=== PATIENT | female | born 1990 | race Caucasian/White ===

== ENCOUNTER 2018-02-27 14:24 | Emergency (ER) | payer SELFPAY ==
--- OUTSIDE RECORDS SUMMARY | 2018-02-27 14:26 | XMS REPORT ---
:1990 [facility] Address [address] [place] [id number] Care Team Providers Name Role Phone BORA Romain NIKO Unavailable Unavailable Problems This patient has no known problems. Allergies, Adverse Reactions, Alerts This patient has no known allergies or adverse reactions. Medications This patient has no known medications. Results Test Description Test Time Test Comments Text Results Atomic Results Result Comments URINALYSIS WITH MICROSCOPIC 2017-02-12 20:58:00 Test Item Value Reference Range Comments Color (test code=UCOLR) Lt. Yellow Clarity (test code=UCLAR) CLEAR Glucose (test code=UGLUC) >=1000 NEGATIVE Bilirubin (test code=UBILI) NEGATIVE NEGATIVE Ketones (test code=UKET) NEGATIVE NEGATIVE Specific [place] (test code=USPGR) 1.010 1.005-1.030 Blood (test code=UBLD) LARGE NEGATIVE PH (test code=UPH) 5.0 4.5-8.0 Protein (test code=UPROT) NEGATIVE NEGATIVE Urobilinogen (test code=U UROB) 0.2 >0.2 Nitrite (test code=UNITR) NEGATIVE NEGATIVE Leukocyte Esterase (test code=ULEUK) TRACE NEGATIVE WBC (test code=WBCUR) 5-10 0-5 RBC (test code=RBCUR) 0-2 0-5 Epithial Cells (test code=U EPI) 40-50 0-10 Mucous (test code=UMUC) Trace None Seen Bacteria (test code=UBACT) 2+ None Seen,Trace TEST, Serum [id number] 20:28:00 Test Item Value Reference Range Comments (Serum) (test code=PREGS) Negative Negative ACETONE, [id number] 20:27:00 Test Item Value Reference Range Comments Acetone Serum (test code=ACETO) Negative Acetone Titer (test code=ACETIT) n/a [id number] 20:22:00 Test Item Value Reference Range Comments Glucose (test code=GLU) 373 mg/dl 75-110 BUN (test code=BUN) 11.0 mg/dl 6.0-17.0 Creatinine (test 0.7 mg/dl 0.4-1.2 code=CREA) Sodium (test code=NA) 143 mmol/l 137-145 Potassium (test code=K) 4.3 mmol/l 3.5-5.0 Chloride (test code=CL) 101 mmol/l 98-107 CO2 (test code=CO2) 26 mmol/l 22-30 Calcium (test code=CALC) 9.3 mg/dl 8.4-10.2 T Protein (test code=TP) 7.1 gm/dl 5.1-8.7 Albumin (test code=ALB) 4.1 gm/dl 3.5-4.6 A/G Ratio (test 1.4 % 1.1-2.2 code=AGRAT) AST (SGOT) (test 47 U/L 11-36 code=AST) ALT (SGPT) (test 68 U/L 11-40 code=ALT) Alkaline Phos (test 71 U/L 47-114 code=ALKP) Total Bilirubin (test 0.3 mg/dl 0.2-1.2 code=TBIL) Globulin (test 3.0 gm/dl 2.3-3.5 code=GLOBU) Anion Gap (test 16 code=GAP) Calcium, Corrected (test 9.2 mg/dl 8.4-10.2 Various formulas exist for code=CALCCORR) corrected serum calcium results, each yielding different values. This corrected result was based on the formula: Corrected Calcium=SerumCalcium + [0.8 * ( 4 - SerumAlbumin)] EGFR if >60 (test code=EGFRAA) mL/min/1.73m\S\2 EGFR if Non- >60 Estimated Glomerular [place] (test mL/min/1.73m\S\2 Filtration Rate (eGFR) code=EGFRNA) Reference Intervals Decision Points for 18 years and older and average body mass: >=60 Does not exclude kidney disease. 30 - 59 Suggests moderate chronic kidney disease and indicates the need for further investigation including assessment of proteinuria and cardiovascular factors. < 30 Usually indicates a need for referral for assessment and management of chronic kidney failure. CBC WITH AUTO [id number] 19:53:00 Test Item Value Reference Range Comments WBC (test code=WBC) 10.2 k/ul 4.8-10.8 RBC (test code=RBC) 5.41 Millions/ul 4.20-5.40 Hemoglobin (test code=HGB) 13.9 gm/dl 12.0-14.0 Hematocrit (test code=HCT) 42.7 % 37.0-47.0 MCV (test code=MCV) 78.9 fL 81.0-99.0 MCH (test code=MCH) 25.8 pg 27.0-31.0 MCHC (test code=MCHC) 32.7 gm/dl 33.0-37.0 RDW (test code=RDWVC) 14.0 % 11.5-14.5 Platelet (test code=PLT) 196 k/ul 130-400 MPV (test code=MPV) 11.3 fL 7.4-10.4 NE% (test code=NE) 75.9 % 42.0-75.0 LY% (test code=LY) 18.1 % 13.0-42.0 MO% (test code=MO) 4.2 % 4.0-14.0 EO% (test code=EO) 1.3 % 1.0-3.0 BA% (test code=BA) 0.5 % 1.0-3.0 NRBC, Auto (test code=NRBC_AUTO) 0 /100WBC 0-0
[2018-02-27] MEDS ORDERED: INSULIN -REGULAR HUMAN 50 UNIT/0.5 ML ML ONE (15:57)
[2018-02-27 15:58] LABS: Barbiturates NEGATIVE; Benzodiazepines NEGATIVE; Cocaine NEGATIVE; METHAMPHETAM NEGATIVE; Opiates NEGATIVE; Phencyclidine NEGATIVE; THC Cannibis NEGATIVE
--- NOTE | 2018-02-27 16:17 | EDPHYS ---
Physician Documentation [facility] Name: Demetria Chamberlain Age: 27 yrs Sex: Female : 1990 Arrival Date: 02/27/2018 Time: 14:26 Bed 28 Private MD: None, None ED Physician Lincoln Ann HPI: 02/27 15:40 This 27 yrs old Female presents to ER via Ambulatory with complaints of High snw Blood Sugar, Chest Pain. 15:40 The patient or guardian reports polyuria, that was potentially precipitated by not snw taking insulin since November. Onset: The symptoms/episode began/occurred gradually. Associated signs and symptoms: Pertinent positives: polyuria, chest pain. Current symptoms: In the emergency department the patient's symptoms are unchanged from the initial presentation. It is unknown whether or not the patient has had similar symptoms in the past. The patient has not recently seen a physician. 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 - Social history:: Smoking status: Patient/guardian denies using tobacco. ROS: 15:39 Constitutional: Negative for fever, chills, and weight loss, Eyes: Negative for injury, snw pain, redness, and discharge, ENT: Negative for injury and discharge, + sore throat Neck: Negative for injury, pain, and swelling. 15:39 Respiratory: Negative for shortness of breath, cough, wheezing, and pleuritic chest pain, Abdomen/GI: Negative for abdominal pain, nausea, vomiting, diarrhea, and constipation, Back: Negative for injury and pain, : Negative for injury, bleeding, discharge, and swelling, MS/Extremity: Negative for injury and deformity, Skin: Negative for injury, rash, and discoloration. 15:39 Cardiovascular: Positive for tightening. 15:39 Neuro: Positive for headache. Exam: 15:39 Constitutional: This is a well developed, well nourished patient who is awake, alert, snw and in no acute distress. Head/Face: Normocephalic, atraumatic. Eyes: Pupils equal round and reactive to light, extra-ocular motions intact. Lids and lashes normal. Conjunctiva and sclera are non-icteric and not injected. Cornea within normal limits. Periorbital areas with no swelling, redness, or edema. ENT: Nares patent. No nasal discharge, no septal abnormalities noted. Tympanic membranes are erythematous and external auditory canals are clear. Oropharynx with no redness, swelling, or masses, exudates, or evidence of obstruction, uvula midline. Mucous membranes moist. Neck: Trachea midline, no thyromegaly or masses palpated, and no cervical lymphadenopathy. Supple, full range of motion without nuchal rigidity, or vertebral point tenderness. No Meningismus. Chest/axilla: Normal chest wall appearance and motion. Nontender with no deformity. No lesions are appreciated. Cardiovascular: Regular rate and rhythm with a normal S1 and S2. No gallops, murmurs, or rubs. Normal PMI, no JVD. No pulse deficits. Respiratory: Lungs have equal breath sounds bilaterally, clear to auscultation and percussion. No rales, rhonchi or wheezes noted. No increased work of breathing, no retractions or nasal flaring. Abdomen/GI: Soft, non-tender, with normal bowel sounds. No distension or tympany. No guarding or rebound. No evidence of tenderness throughout. Back: No spinal tenderness. No costovertebral tenderness. Full range of motion. Skin: Warm, dry with normal turgor. Normal color with no rashes, no lesions, and no evidence of cellulitis. MS/ Extremity: Pulses equal, no cyanosis. Neurovascular intact. Full, normal range of motion. Neuro: Awake and alert, GCS 15, oriented to person, place, time, and situation. Cranial nerves II-XII grossly intact. Motor strength 5/5 in all extremities. Sensory grossly intact. Cerebellar exam normal. Normal gait. Vital Signs: 14:47 BP 131 / 95; Pulse 97; Resp 20; Temp 97.9; Pulse Ox 100% on R/A; Weight 95.25 kg; hb Height 5 ft. 6 in. (167.64 cm); Pain 4/10; 15:54 BP 121 / 88; Pulse 95; Resp 16; Pulse Ox 97% on R/A; Pain 4/10; tt1 16:50 BP 120 / 89; Pulse 97; Resp 17; Pulse Ox 98% on R/A; rk2 14:47 Body Mass Index 33.89 (95.25 kg, 167.64 cm) hb MDM: 15:16 Patient medically screened. snw 15:44 Data reviewed: vital signs, nurses notes. Data interpreted: Pulse oximetry: on room air snw is 100 %. Interpretation: normal. Counseling: I had a detailed discussion with the patient and/or guardian regarding: the historical points, exam findings, and any diagnostic results supporting the discharge/admit diagnosis, the presence of at least one elevated blood pressure reading (>120/80) during this emergency department visit. Refusal of service: The patient/guardian displays adequate decision making capability and despite a detailed discussion of alternatives, benefits, risks, and consequences refuses: all lab tests, all X-rays. Special discussion: Based on the history and exam findings, there is no indication for further emergent testing or inpatient evaluation. I discussed with the patient/guardian the need to see the primary care provider for further evaluation of the symptoms. ED course: pt refuses test, states she just wants blood sugar reduced.. 02/27 15:14 Order name: Strep; Complete Time: 16:39 snw 02/27 15:14 Order name: Flu; Complete Time: 16:39 snw 02/27 15:14 Order name: Urine Drug Screen; Complete Time: 16:06 snw 02/27 15:14 Order name: Urine Culture sn 02/27 15:14 Order name: Urine Microscopic Only; Complete Time: 16:39 snw 02/27 15:41 Order name: Urine Dipstick--Ancillary (enter results) 02/27 15:14 Order name: Urine Test (obtain specimen); Complete Time: 15:38 snw 02/27 15:14 Order name: Urine Dipstick-Ancillary (obtain specimen); Complete Time: 15:38 snw 02/27 15:14 Order name: FSBS; Complete Time: 15:15 snw 02/27 15:41 Order name: Urine --Ancillary (enter results) eb 02/27 16:22 Order name: Throat Culture EDMS 02/27 15:47 Order name: FSBS: in 30 min to one hour post insulin; Complete Time: 16:59 snw Administered Medications: 16:00 Drug: Insulin Regular Human 10 units {Co-Signature: tl3 (Dorota Vazquez RN).} Route: rk2 Sub-Q; Site: left upper arm; 16:23 Drug: Zithromax 500 mg Route: PO; rk2 16:50 Follow up: Response: No adverse reaction rk2 Point of Care Testing: Blood Glucose: 14:47 Blood Glucose: 367 mg/dL; hb Ranges: Critical Glucose Levels:Adult <50 mg/dl or >400 mg/dl <40 mg/dl or >180 mg/dl Disposition: 02/28 12:36 Co-signature as Attending Physician, Lincoln Ann MD. Disposition: 02/27/18 16:16 Discharged to Home. Impression: Diabetes mellitus due to underlying condition with hyperglycemia, Acute serous otitis media. - Condition is Stable. - Discharge Instructions: Diabetes and Sick Day Management, Otitis Media, Adult, Hyperglycemic Hyperosmolar State, Diabetic Ketoacidosis, Blood Glucose Monitoring, Adult. - Prescriptions for Novolog 100 unit/mL Subcutaneous solution - inject 5 unit by SUBCUTANEOUS route 2 times per day 5 units before breakfast and 5 units before dinner; 1 vial. Zithromax 500 mg Oral Tablet - take 1 tablet by ORAL route once daily for 5 days; 5 tablet. - Medication Reconciliation Form, Thank You Letter, Antibiotic Education, Prescription Opioid Use form. - Follow up: Private Physician; When: Tomorrow; Reason: Recheck today's complaints, Continuance of care, Re-evaluation by your physician. Follow up: Emergency Department; When: As needed; Reason: Worsening of condition. Signatures: Dispatcher [employer] EDMS Kaylene Solorio, JULIÁN-C SENIOR STRUCTURAL ENGINEER-Csnw Chrissy Santillan RN RN Lincoln Ann MD MD Marge Hoang RN RN rk2 Dorota Vazquez RN tl3 Corrections: (The following items were deleted from the chart) 02/27 16:12 15:15 Chest Pa And Lat (2 Views)+RAD.[email or web address].[email or web address] ordered. EDMS EDMS
--- NOTE | 2018-02-27 16:17 | ER ---
Nurse's Notes [facility] Name: Demetria Chamberlain Age: 27 yrs Sex: Female : 1990 Arrival Date: 02/27/2018 Time: 14:26 Bed 28 Private MD: None, None Diagnosis: Diabetes mellitus due to underlying condition with hyperglycemia;Acute serous otitis media Presentation: 02/27 14:48 Presenting complaint: Patient states: Headache, high blood sugar, and intermittent hb chest pain x 2 days. Out of insulin since November. Home BGL >400. Transition of care: patient was not received from another setting of care. Onset of symptoms was February 26, 2018. Initial Sepsis Screen: Does the patient meet any 2 criteria? No. Patient's initial sepsis screen is negative. Does the patient have a suspected source of infection? No. Patient's initial sepsis screen is negative. Care prior to arrival: None. 14:48 Method Of Arrival: Ambulatory hb 14:48 Acuity: NIKUNJ 3 hb Triage Assessment: 15:00 General: Appears in no apparent distress. obese, well groomed, well developed, well rk2 nourished, Behavior is calm, cooperative. 15:00 Pain: Complains of pain in right ear and left ear. Neuro: Level of Consciousness is rk2 alert, obeys commands, Oriented to person, place, time, situation. Cardiovascular: Rhythm is regular. Respiratory: Airway is patent Respiratory effort is even, unlabored, Respiratory pattern is regular, symmetrical. Derm: Skin is pink, warm \T\ dry. 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 - Social history:: Smoking status: Patient/guardian denies using tobacco. Screenin:00 Abuse screen: Denies threats or abuse. rk2 15:00 Nutritional screening: No deficits noted. Tuberculosis screening: No symptoms or risk rk2 factors identified. Fall Risk None identified. Assessment: 15:00 Pain: Pain began. rk2 Vital Signs: 14:47 BP 131 / 95; Pulse 97; Resp 20; Temp 97.9; Pulse Ox 100% on R/A; Weight 95.25 kg; hb Height 5 ft. 6 in. (167.64 cm); Pain 4/10; 15:54 BP 121 / 88; Pulse 95; Resp 16; Pulse Ox 97% on R/A; Pain 4/10; tt1 16:50 BP 120 / 89; Pulse 97; Resp 17; Pulse Ox 98% on R/A; rk2 14:47 Body Mass Index 33.89 (95.25 kg, 167.64 cm) hb ED Course: 14:26 Patient arrived in ED. mr 14:26 None, None is Private Physician. mr 14:50 Triage completed. hb 14:51 Arm band placed on right wrist. hb 15:00 Patient has correct armband on for positive identification. Bed in low position. Call rk2 light in reach. Pulse ox on. 15:00 Patient maintains SpO2 saturation greater than 95% on room air. rk2 15:12 Marge Hoang, RN is Primary Nurse. rk2 15:13 Kaylene Solorio F[facility]-C [facility]. snw 15:13 Lincoln Ann MD is Attending Physician. snw 16:57 No provider procedures requiring assistance completed. Patient did not have IV access rk2 during this emergency room visit. Administered Medications: 16:00 Drug: Insulin Regular Human 10 units {Co-Signature: tl3 (Dorota Vazquez RN).} Route: rk2 Sub-Q; Site: left upper arm; 16:23 Drug: Zithromax 500 mg Route: PO; rk2 16:50 Follow up: Response: No adverse reaction rk2 Point of Care Testing: Blood Glucose: 14:47 Blood Glucose: 367 mg/dL; hb Ranges: Outcome: 16:16 Discharge ordered by . snw 16:57 Discharged to home ambulatory. rk2 16:57 Condition: good 16:57 Discharge instructions given to patient, Prescriptions given X 2. 16:59 Patient left the ED. rk2 Signatures: Kaylene Solorio FNP-C APPLICATION INTEGRATION SPECIALIST-Nubia Lacy mr Dalton, Cindi tt1 Chrissy Santillan RN RN hb Marge Hoang RN RN rk2 Dorota Vazquez RN tl3 Corrections: (The following items were deleted from the chart) 14:53 14:48 Presenting complaint: Patient states: Headache, high blood sugar, and hb intermittent chest pain x 2 days. Out of insulin, home BGL 400-600 hb
[2018-02-27 16:19] LABS: Urine Bacteria <20 /HPF (<20); Urine RBC <5 /HPF (NONE SEEN)
[2018-02-27 16:20] LABS: Urine Culture Reflex Order NOT NEEDED
[2018-02-27] MEDS ORDERED: AZITHROMYCIN 250 MG TAB ONE (16:20)
[2018-02-27 18:57] LABS: Urine Blood TRACE (NEG); Urine Glucose 2+ (NEG); Urine Protein NEGATIVE (NEG); Urine Specific Gravity 1.015 (1.005-1.030); Urine pH 5.5 (5.0-7.0)
== END 2018-02-27 16:59 | disposition home or self-care (01) ==
LOC: ER 14:24
DX: E11.65 Type 2 diabetes mellitus with hyperglycemia (principal); Z79.4 Long term (current) use of insulin; H65.00 Acute serous otitis media, unspecified ear; Z88.0 Allergy status to penicillin; Z88.5 Allergy status to narcotic agent; Z91.048 Other nonmedicinal substance allergy status
CPT/HCPCS: 80307; 81003; 81015; 81025; 82962; 87070; 87081; 87086; 87088; 87804; 96372; 99284

== ENCOUNTER 2018-04-17 09:42 | Emergency (ER) | payer SELFPAY ==
--- OUTSIDE RECORDS SUMMARY | 2018-04-17 09:44 | XMS REPORT ---
:1990 [facility] Address [address] [place] [address] Care Team Providers Name Role Phone FAYE SAHNIKEANU Hoyos Unavailable Unavailable Problems This patient has no [...] NEGATIVE Ketones (test code=UKET) NEGATIVE NEGATIVE Specific [place] (test code=USPGR) 1.010 1.005-1.030 Blood (test code=UBLD) [...] (test code=UBACT) 2+ None Seen,Trace TEST, Serum [id number] 20:28:00 Test Item Value Reference Range Comments (Serum) (test code=PREGS) Negative Negative ACETONE, [id number] 20:27:00 Test Item Value Reference Range Comments Acetone Serum (test code=ACETO) Negative Acetone Titer (test code=ACETIT) n/a [id number] 20:22:00 Test Item Value Reference Range Comments [...] mL/min/1.73m\S\2 EGFR if Non- >60 Estimated Glomerular [place] (test mL/min/1.73m\S\2 Filtration Rate (eGFR) code=EGFRNA) Reference [...] of chronic kidney failure. CBC WITH AUTO [id number] 19:53:00 Test Item Value Reference Range Comments [...]
[2018-04-17] MEDS ORDERED: IBUPROFEN 400 MG TAB ONE (10:28)
--- NOTE | 2018-04-17 11:10 | RAD REPORT ---
EXAM DESCRIPTION: RAD - Foot Left 3 View - 04/17/2018 10:40 am CLINICAL HISTORY: PAIN Trauma, fall FINDINGS: No acute fracture or dislocation is seen.
--- NOTE | 2018-04-17 11:23 | EDPHYS ---
Physician Documentation [facility] Name: Demetria Chamberlain Age: 28 yrs Sex: Female : 1990 Arrival Date: 04/17/2018 Time: 09:46 Bed 16 Private MD: Out, [facility] ED Physician Lincoln Ann HPI: 04/17 11:11 This 28 yrs old Female presents to ER via Wheelchair with complaints of Fall gs Injury - ANKLE. 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 Onset: The gs symptoms/episode began/occurred acutely, yesterday, last night. Associated injuries: The patient sustained lateral side of left heel and dorsum of left foot. Severity of symptoms: At their worst the symptoms were moderate, in the emergency department the symptoms are unchanged. The patient has not experienced similar symptoms in the past. 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 - Social history:: Smoking status: Patient/guardian denies using tobacco. - Ebola Screening: : No symptoms or risks identified at this time. ROS: 11:19 All other systems are negative. gs Exam: 11:19 Head/Face: Normocephalic, atraumatic. Eyes: Pupils equal round and reactive to light, gs extra-ocular motions intact. Lids and lashes normal. Conjunctiva and sclera are non-icteric and not injected. Cornea within normal limits. Periorbital areas with no swelling, redness, or edema. ENT: Nares patent. No nasal discharge, no septal abnormalities noted. Tympanic membranes are normal and external auditory canals are clear. Oropharynx with no redness, swelling, or masses, exudates, or evidence of obstruction, uvula midline. Mucous membranes moist. Neck: Trachea midline, no thyromegaly or masses palpated, and no cervical lymphadenopathy. Supple, full range of motion without nuchal rigidity, or vertebral point tenderness. No Meningismus. Chest/axilla: Normal chest wall appearance and motion. Nontender with no deformity. No lesions are appreciated. Cardiovascular: Regular rate and rhythm with a normal S1 and S2. No gallops, murmurs, or rubs. Normal PMI, no JVD. No pulse deficits. Respiratory: Lungs have equal breath sounds bilaterally, clear to auscultation and percussion. No rales, rhonchi or wheezes noted. No increased work of breathing, no retractions or nasal flaring. Abdomen/GI: Soft, non-tender, with normal bowel sounds. No distension or tympany. No guarding or rebound. No evidence of tenderness throughout. Back: No spinal tenderness. No costovertebral tenderness. Full range of motion. Skin: Warm, dry with normal turgor. Normal color with no rashes, no lesions, and no evidence of cellulitis. Neuro: Awake and alert, GCS 15, oriented to person, place, time, and situation. Cranial nerves II-XII grossly intact. Motor strength 5/5 in all extremities. Sensory grossly intact. Cerebellar exam normal. Normal gait. 11:19 Constitutional: The patient appears alert, awake. 11:19 Musculoskeletal/extremity: Extremities: noted in the lateral side of left heel and dorsum of left foot: Pulses: are normal with no appreciated deficits, Sensation intact. Joints: the right ankle displays painful range of motion, swelling, tenderness. Vital Signs: 09:57 BP 135 / 65; Pulse 92; Resp 18; Temp 98.3; Pulse Ox 100% ; Weight 97.52 kg; rk2 11:16 BP 117 / 83; Pulse 83; Resp 16; Pulse Ox 97% on R/A; em MDM: 10:05 Patient medically screened. gs 11:19 Differential diagnosis: fracture, sprain, strain. Data reviewed: vital signs, nurses gs notes. Response to treatment: the patient's symptoms have mildly improved after treatment, and as a result, I will discharge patient. 04/17 10:05 Order name: Foot Left 3 View XRAY; Complete Time: 11:11 gs Administered Medications: 10:39 Drug: Ibuprofen 800 mg Route: PO; em 11:15 Follow up: Response: No adverse reaction em Disposition: 04/17/18 11:23 Discharged to Home. Impression: Sprain of ankle. - Condition is Stable. - Discharge Instructions: Ankle Sprain. - Medication Reconciliation Form, Thank You Letter, Antibiotic Education, Prescription Opioid Use form. - Follow up: Federico Damon MD; When: 2 - 3 days; Reason: Re-evaluation by your physician. Signatures: Dispatcher [employer] Luiz Nassar, SPEECH LANGUAGE PATHOLOGY ASSISTANT SPEECH LANGUAGE PATHOLOGY ASSISTANT Lincoln Miguel MD MD gs Kidder, Rhonda, RN RN rk2 Corrections: (The following items were deleted from the chart) 12:07 11:23 04/17/2018 11:23 Discharged to Home. Impression: Sprain of ankle. Condition is em Stable. Forms are Medication Reconciliation Form, Thank You Letter, Antibiotic Education, Prescription Opioid Use. Follow up: Dr. Federico Damon; When: 2 - 3 days; Reason: Re-evaluation by your physician. gs
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
== END 2018-04-17 12:07 | disposition home or self-care (01) ==
LOC: ER 09:42
DX: S93.401A Sprain of unspecified ligament of right ankle, initial encounter (principal); X58.XXXA Exposure to other specified factors, initial encounter; Y93.89 Activity, other specified; Y92.812 Truck as the place of occurrence of the external cause; Z88.0 Allergy status to penicillin; Z88.5 Allergy status to narcotic agent; Z91.048 Other nonmedicinal substance allergy status
CPT/HCPCS: 99283

== ENCOUNTER 2018-08-24 17:07 | Emergency (ER) | payer SELFPAY ==
--- OUTSIDE RECORDS SUMMARY | 2018-08-24 17:09 | XMS REPORT ---
:1990 [facility] Address [address] [place] [id number] Care Team Providers Name Role Phone NIKO SAHNI Unavailable Unavailable Problems This patient has no [...] NEGATIVE Ketones (test code=UKET) NEGATIVE NEGATIVE Specific [place] (test code=USPGR) 1.010 1.005-1.030 Blood (test code=UBLD) [...] (test code=UBACT) 2+ None Seen,Trace TEST, Serum [id number] 20:28:00 Test Item Value Reference Range Comments (Serum) (test code=PREGS) Negative Negative ACETONE, [id number] 20:27:00 Test Item Value Reference Range Comments Acetone Serum (test code=ACETO) Negative Acetone Titer (test code=ACETIT) n/a [id number] 20:22:00 Test Item Value Reference Range Comments [...] mL/min/1.73m\S\2 EGFR if Non- >60 Estimated Glomerular Citizen Of [place] (test mL/min/1.73m\S\2 Filtration Rate (eGFR) code=EGFRNA) Reference [...] of chronic kidney failure. CBC WITH AUTO [id number] 19:53:00 Test Item Value Reference Range Comments [...]
[2018-08-24 18:04] LABS: Absolute Lymphocytes (CBC) 1.7 K/uL (0.7-4.9); Absolute Monocytes 0.4 K/uL (0.1-1.3); Absolute Neutrophil 6.6 K/uL (1.8-8.0); Basophils % 0.8 % (0-1.3); Hematocrit 47.2 % (36.0-45.0); Lymphocytes % 19.1 % (15.3-44.8); MCH 27.5 pg (27.0-35.0); Monocytes % 4.7 % (3.3-12.3); RBC Red Blood Cell Count 5.68 M/uL (3.86-4.86)
[2018-08-24] MEDS ORDERED: NA CHLORIDE 0.9% 1,000 ML ONE ×2 (18:09→21:19)
[2018-08-24] MEDS ORDERED: INSULIN -REGULAR HUMAN 50 UNIT/0.5 ML ML ONE (18:09)
[2018-08-24 18:16] LABS: Urine Blood NEGATIVE (NEG); Urine Glucose 2+ (NEG); Urine Protein NEGATIVE (NEG); Urine Specific Gravity 1.015 (1.005-1.030); Urine pH 5.5 (5.0-7.0)
[2018-08-24 18:23] LABS: Protime INR 1.03
[2018-08-24 18:24] LABS: ALT/SGPT 57 U/L (12-78); AST/SGOT 29 U/L (15-37); Albumin 3.9 g/dL (3.4-5.0); Alkaline Phosphatase 92 U/L (45-117); BUN Blood Urea Nitrogen 10 mg/dL (7-18); Bicarbonate 26 mmol/L (21-32); Bilirubin Direct 0.1 mg/dL (0-0.2); Bilirubin Total 0.4 mg/dL (0.2-1.0); Glucose Level 398 mg/dL (74-106); Magnesium 2.1 mg/dL (1.8-2.4); NT PRO-BNP 26 pg/mL (<125); Potassium 3.8 mmol/L (3.5-5.1); Protein, Total 7.8 g/dL (6.4-8.2); Sodium Level 136 mmol/L (136-145); Troponin (Emerg Dept Use Only) < 0.02 ng/mL (0.0-0.045)
--- NOTE | 2018-08-24 18:41 | RAD REPORT ---
EXAM DESCRIPTION: RAD - Chest Single View - 08/24/2018 6:27 pm CLINICAL HISTORY: dizziness Chest pain. COMPARISON: No comparisons FINDINGS: Portable technique limits examination quality. The lungs are grossly clear. The heart is normal in size. No displaced fractures. IMPRESSION: No acute intrathoracic process suspected.
--- NOTE | 2018-08-24 18:46 | RAD REPORT ---
EXAM DESCRIPTION: CT - Head Brain Wo Cont - 08/24/2018 6:40 pm CLINICAL HISTORY: Headache;Dizziness COMPARISON: No comparisons TECHNIQUE: All CT scans are performed using dose optimization technique as appropriate and may inclu de automated exposure control or mA/KV adjustment according to patient size. FINDINGS: No intracranial hemorrhage, hydrocephalus or extra-axial fluid collection.No areas of brai n edema or evidence of midline shift. The paranasal sinuses and mastoids are clear. The calvarium is intact. IMPRESSION: No acute intracranial abnormality.
[2018-08-24] MEDS ORDERED: KETOROLAC 30 MG/ML INJ ONE (21:19)
[2018-08-24] MEDS ORDERED: ONDANSETRON 4 MG/2 ML VIAL ONE (21:19)
[2018-08-24] MEDS ORDERED: METOCLOPRAMIDE 10 MG/2mL INJ ONE (21:19)
--- NOTE | 2018-08-24 21:54 | ER ---
Nurse's Notes [facility] Name: Demetria Chamberlain Age: 28 yrs Sex: Female : 1990 Arrival Date: 08/24/2018 Time: 17:09 Bed 13 Private MD: Diagnosis: Other chest pain;Diabetes mellitus due to underlying condition with hyperglycemia;Headache;Dizziness and giddiness Presentation: 08/24 17:20 Presenting complaint: Patient states: "I've had a migraine for 4 days and I was at the [employer] store and my chest started hurting really bad and I got really dizzy. I almost fell on the floor, and I'm a diabetic and I haven't been taking my insulin.". Transition of care: patient was not received from another setting of care. Onset of symptoms was August 24, 2018 at 16:30. Risk Assessment: Do you want to hurt yourself or someone else? Patient reports no desire to harm self or others. Initial Sepsis Screen: Does the patient meet any 2 criteria? No. Patient's initial sepsis screen is negative. Does the patient have a suspected source of infection? No. Patient's initial sepsis screen is negative. Care prior to arrival: None. 17:20 Method Of Arrival: Ambulatory [facility] 17:20 Acuity: NIKUNJ 3 aj1 Triage Assessment: 17:22 General: Appears in no apparent distress. uncomfortable, Behavior is calm, cooperative, aj1 appropriate for age. Pain: Complains of pain in mid-sternal area Pain currently is 5 out of 10 on a pain scale. Neuro: Level of Consciousness is awake, alert, obeys commands, Speech is normal, Facial symmetry appears normal. Cardiovascular: Reports chest pain, shortness of breath, Patient's skin is warm and dry. Respiratory: Airway is patent Respiratory effort is even, unlabored, Respiratory pattern is regular, symmetrical. 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 - Social history:: Smoking status: Patient/guardian denies using tobacco. - Ebola Screening: : Patient denies travel to an Ebola-affected area in the 21 days before illness onset. Screenin:58 Abuse screen: Denies threats or abuse. Nutritional screening: No deficits noted. la1 Tuberculosis screening: No symptoms or risk factors identified. Fall Risk None identified. Assessment: 17:57 General: Appears in no apparent distress. Behavior is calm, cooperative. Pain: la1 Complains of pain in face, scalp and chest Pain does not radiate. Pain began 2-3 days ago. Neuro: Level of Consciousness is awake, alert, obeys commands, Oriented to person, place, time, situation, Pyroglazer are equal bilaterally Gait is steady, Speech is normal, Facial symmetry appears normal. Cardiovascular: Capillary refill < 3 seconds Patient's skin is warm and dry. Respiratory: Airway is patent Respiratory effort is even, unlabored, Respiratory pattern is regular, symmetrical. GI: No signs and/or symptoms were reported involving the gastrointestinal system. : No signs and/or symptoms were reported regarding the genitourinary system. 19:10 Reassessment: Patient appears in no apparent distress at this time. Patient and/or tl2 family updated on plan of care and expected duration. Pain level reassessed. Patient is alert, oriented x 3, equal unlabored respirations, skin warm/dry/pink. Repeated BGL. Pt reports headache but states she doesn't need anything for pain. 20:00 Reassessment: Patient appears in no apparent distress at this time. Patient and/or tl2 family updated on plan of care and expected duration. Pain level reassessed. Patient is alert, oriented x 3, equal unlabored respirations, skin warm/dry/pink. 21:00 Reassessment: Patient appears in no apparent distress at this time. Patient and/or tl2 family updated on plan of care and expected duration. Pain level reassessed. Patient is alert, oriented x 3, equal unlabored respirations, skin warm/dry/pink. 22:07 Reassessment: Will discharge patient after fluids have completed. tl2 22:35 Reassessment: Patient appears in no apparent distress at this time. Patient and/or tl2 family updated on plan of care and expected duration. Pain level reassessed. Patient is alert, oriented x 3, equal unlabored respirations, skin warm/dry/pink. Pt verbalized understanding of discharge instructions, need for follow up and prescription usage Patient states feeling better. Vital Signs: 17:22 BP 160 / 100; Pulse 85; Resp 20; Temp 97.2; Pulse Ox 98% on R/A; Weight 98.88 kg (R); aj1 Height 5 ft. 6 in. (167.64 cm) (R); Pain 5/10; 17:58 BP 117 / 89 Supine; Pulse 85; Resp 16; Pulse Ox 97% on R/A; mh5 18:00 BP 121 / 88 Sitting; Pulse 85; Resp 17; Pulse Ox 98% on R/A; mh5 18:01 BP 117 / 89 Standing; Pulse 100; Resp 18; Pulse Ox 98% on R/A; mh5 19:43 BP 109 / 76; Pulse 78; Resp 18; Pulse Ox 98% on R/A; tl2 20:47 BP 115 / 76; Pulse 91; Resp 18; Pulse Ox 97% on R/A; tl2 21:36 BP 110 / 75; Pulse 82; Resp 18; Pulse Ox 98% on R/A; tl2 17:22 Body Mass Index 35.19 (98.88 kg, 167.64 cm) aj1 ED Course: 17:09 Patient arrived in ED. as 17:21 Triage completed. aj1 17:22 Arm band placed on Patient placed in an exam room. aj1 17:26 Vin Arthur, RN is Primary Nurse. la1 17:33 Edward Hernandez PA is PHCP. cp 17:34 Po Paul MD is Attending Physician. cp 17:55 EKG done, by polysomnography technologist. reviewed by Edward RODGERS. 3 17:58 Bed in low position. Call light in reach. Pulse ox on. NIBP on. la1 17:58 No provider procedures requiring assistance completed. Inserted saline lock: 20 gauge la1 in right antecubital area, using aseptic technique. Blood collected. Patient maintains SpO2 saturation greater than 95% on room air. 18:26 X-ray completed. Portable x-ray completed in exam room. Patient tolerated procedure az well. 18:27 XRAY Chest (1 view) In Process Unspecified. EDMS 18:[address] nj 18:40 CT Head Brain wo Cont In Process Unspecified. EDMS 21:26 Yordan Ricks MD is Attending Physician. cp 22:35 IV discontinued, intact, bleeding controlled, No redness/swelling at site. Pressure tl2 dressing applied. Administered Medications: 18:06 Drug: Insulin Regular Human 10 units {Co-Signature: la1 (Vni Arthur RN).} Route: IVP; hb Site: right antecubital; 18:53 Follow up: Response: No adverse reaction; Blood sugar is lowered la1 18:07 Drug: NS 0.9% 1000 ml Route: IV; Rate: 1 bolus; Site: right antecubital; hb 18:53 Follow up: IV Status: Completed infusion la1 21:21 Drug: Zofran 4 mg Route: IVP; Site: right antecubital; tl2 22:37 Follow up: Response: No adverse reaction; Nausea is decreased tl2 21:21 Drug: NS 0.9% 1000 ml Route: IV; Rate: 1 bolus; Site: right antecubital; tl2 22:36 Follow up: IV Status: Completed infusion; IV Intake: 1000ml tl2 21:22 Drug: Reglan 20 mg Route: IVP; Site: right antecubital; tl2 22:37 Follow up: Response: No adverse reaction; Pain is decreased tl2 21:22 Drug: TORadol 30 mg Route: IVP; Site: right antecubital; tl2 22:37 Follow up: Response: No adverse reaction; Pain is decreased tl2 21:22 Not Given (Do not have in facility): Benadryl 25 mg IVP once tl2 Point of Care Testing: Blood Glucose: 17:59 Blood Glucose: 356 mg/dL; la1 18:52 Blood Glucose: 230 mg/dL; la1 19:43 Blood Glucose: 236 mg/dL; tl2 Ranges: Intake: 22:36 IV: 1000ml; Total: 1000ml. tl2 Outcome: 21:53 Discharge ordered by . cp 22:35 Discharged to home ambulatory, with family. tl2 22:35 Condition: stable 22:35 Discharge instructions given to patient, Instructed on discharge instructions, follow up and referral plans. medication usage, Demonstrated understanding of instructions, follow-up care, medications, Prescriptions given X 2. 22:38 Patient left the ED. tl2 Signatures: Dispatcher Med[employer]Wandy Sparrow, RN RN aj1 Flora Dickey, Vin, RN RN la1 Edward Hernandez PA PA cp Baxter, Heather RN RN Blaine, Anna RN RN tl2 Garth Mcintosh, [place] [facility] Sharif, Mey 3 Windy Kapoor RN la1
--- NOTE | 2018-08-24 21:54 | EDPHYS ---
Physician Documentation [facility] Unit Name: Demetria Chamberlain Age: 28 yrs Sex: Female : 1990 Arrival Date: 08/24/2018 Time: 17:09 Bed 13 Private MD: ED Physician Yordan Ricks HPI: 08/24 17:35 This 28 yrs old Female presents to ER via Ambulatory with complaints of cp Dizziness, Chest Pain. 17:35 The patient presents with dizziness, lightheadedness. Onset: The symptoms/episode cp began/occurred today. 17:35 Context: occurred while the patient was standing, at store. just prior to the episode cp the patient experienced dizziness. Associated signs and symptoms: Pertinent positives: headache times 4 days, Pertinent negatives: abdominal pain, diaphoresis, focal weakness, nausea, numbness, syncope, vomiting. Patient's baseline: Neuro: alert and fully oriented, Motor: no deficits, Ambulation: walks without assistance, Speech: normal. 17:35 Patient reports history of IDDM and running out of insulin for past 1 year. Patient cp reports she has not seen a family physician to have medications refilled. 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 - Social history:: Smoking status: Patient/guardian denies using tobacco. - Ebola Screening: : Patient denies travel to an Ebola-affected area in the 21 days before illness onset. ROS: 17:40 Constitutional: Negative for body aches, chills, fever, poor PO intake. cp 17:40 Eyes: Negative for injury, pain, redness, and discharge. cp 17:40 ENT: Negative for drainage from ear(s), ear pain, sore throat, difficulty swallowing, cp difficulty handling secretions. 17:40 Cardiovascular: Positive for chest pain, Negative for edema, palpitations. 17:40 Respiratory: Negative for cough, shortness of breath, wheezing. 17:40 Abdomen/GI: Negative for abdominal pain, nausea, vomiting, and diarrhea, constipation, black/tarry stool, rectal bleeding. 17:40 Back: Negative for pain at rest, pain with movement, radiated pain. 17:40 : Negative for urinary symptoms, vaginal bleeding, vaginal discharge. 17:40 MS/extremity: Negative for injury or acute deformity, paresthesias. 17:40 Skin: Negative for cellulitis, rash. 17:40 Neuro: Positive for dizziness, headache, Negative for altered mental status, numbness, speech changes, syncope, weakness. 17:40 All other systems are negative. Exam: 17:45 Constitutional: The patient appears in no acute distress, alert, awake, cp non-diaphoretic, non-toxic, well developed, well nourished. 17:45 Head/Face: Normocephalic, atraumatic. cp 17:45 Eyes: Periorbital structures: appear normal, Pupils: equal, round, and reactive to light and accomodation, Extraocular movements: intact throughout, Conjunctiva: normal, no exudate, no injection, Sclera: no appreciated abnormality, Lids and lashes: appear normal, bilaterally. 17:45 ENT: External ear(s): are unremarkable, Ear canal(s): are normal, clear, TM's: bulging, is not appreciated, bilaterally, dullness, bilaterally, erythema, is not appreciated, bilaterally, Nose: is normal, Mouth: Lips: moist, Oral mucosa: pink and intact, moist, Posterior pharynx: Airway: no evidence of obstruction, patent, Tonsils: are normal in appearance, Uvula: midline, swelling, is not appreciated, erythema, is not appreciated, exudate, is not appreciated. 17:45 Neck: ROM/movement: is normal, is supple, without pain, no range of motions limitations, no meningismus, no nuchal rigidity. 17:45 Chest/axilla: Inspection: normal, Palpation: crepitus, is not appreciated, tenderness, is not appreciated. 17:45 Cardiovascular: Rate: normal, Rhythm: regular, Pulses: Pulses are 2+ in right radial artery and left radial artery. Edema: is not appreciated, JVD: is not appreciated. 17:45 Respiratory: the patient does not display signs of respiratory distress, Respirations: normal, no use of accessory muscles, no grunting, no retractions, no splinting, no tachypnea, labored breathing, is not present, Breath sounds: are clear throughout, no decreased breath sounds, no stridor, no wheezing. 17:45 Abdomen/GI: Inspection: abdomen appears normal, Bowel sounds: active, all quadrants, Palpation: abdomen is soft and non-tender, in all quadrants, rebound tenderness, is not appreciated, involuntary guarding, is not appreciated. 17:45 Back: pain, is absent, ROM is normal. 17:45 Skin: cellulitis, is not appreciated, no rash present. 17:45 Neuro: Orientation: to person, place \T\ time. Mentation: is normal, Cerebellar function: is grossly normal, Motor: moves all fours, strength is normal, Sensation: is normal. 18:00 ECG was reviewed by the Attending Physician. cp 21:30 ECG was reviewed by the Attending Physician. Vital Signs: 17:22 BP 160 / 100; Pulse 85; Resp 20; Temp 97.2; Pulse Ox 98% on R/A; Weight 98.88 kg (R); aj1 Height 5 ft. 6 in. (167.64 cm) (R); Pain 5/10; 17:58 BP 117 / 89 Supine; Pulse 85; Resp 16; Pulse Ox 97% on R/A; mh5 18:00 BP 121 / 88 Sitting; Pulse 85; Resp 17; Pulse Ox 98% on R/A; mh5 18:01 BP 117 / 89 Standing; Pulse 100; Resp 18; Pulse Ox 98% on R/A; mh5 19:43 BP 109 / 76; Pulse 78; Resp 18; Pulse Ox 98% on R/A; tl2 20:47 BP 115 / 76; Pulse 91; Resp 18; Pulse Ox 97% on R/A; tl2 21:36 BP 110 / 75; Pulse 82; Resp 18; Pulse Ox 98% on R/A; tl2 17:22 Body Mass Index 35.19 (98.88 kg, 167.64 cm) aj1 MDM: 17:34 Patient medically screened. cp 18:00 Differential diagnosis: cardiac arrhythmia, CVA, generalized weakness, hypovolemia, cp idiopathic dizziness, , TIA, vertigo, DKA. 21:50 Data reviewed: vital signs, nurses notes, lab test result(s), EKG, radiologic studies, cp CT scan, plain films, and as a result, I will discharge patient. 21:51 Counseling: I had a detailed discussion with the patient and/or guardian regarding: the cp historical points, exam findings, and any diagnostic results supporting the discharge/admit diagnosis, lab results, radiology results, the need for outpatient follow up, for definitive care, a family practitioner, to return to the emergency department if symptoms worsen or persist or if there are any questions or concerns that arise at home. 21:51 Response to treatment: the patient's symptoms have markedly improved after treatment, cp VSS. Hyperglycemia improved. Will discharge to home for continued monitoring. 08/24 17:54 Order name: Basic Metabolic Panel; Complete Time: 18:25 cp 08/24 18:25 Interpretation: Normal except: GLUC 398; GFR 67. cp 08/24 17:54 Order name: CBC with Diff; Complete Time: 18:25 cp 08/24 18:26 Interpretation: Normal except: RBC 5.68; HGB 15.6; HCT 47.2; CARLEEN% 74.4. cp 08/24 17:54 Order name: LFT's; Complete Time: 18:25 cp 08/24 19:10 Interpretation: Normal except: GLOB 3.9; A/G 1.0. cp 08/24 17:54 Order name: Magnesium; Complete Time: 18:25 cp 08/24 17:54 Order name: PT-INR; Complete Time: 19:09 cp 08/24 17:54 Order name: Troponin (emerg Dept Use Only); Complete Time: 18:25 cp 08/24 17:54 Order name: XRAY Chest (1 view); Complete Time: 19:09 cp 08/24 17:54 Order name: D-Dimer; Complete Time: 19:09 cp 08/24 19:10 Interpretation: Reviewed. cp 08/24 17:54 Order name: BNP; Complete Time: 18:25 cp 08/24 17:57 Order name: Urine Dipstick--Ancillary (enter results); Complete Time: 18:25 bd 08/24 18:26 Interpretation: Normal except: UGLUC 2+. cp 08/24 17:57 Order name: Urine --Ancillary (enter results); Complete Time: 18:25 bd 08/24 19:17 Interpretation: Reviewed. cp 08/24 18:27 Order name: CT Head Brain wo Cont; Complete Time: 19:09 cp 08/24 19:16 Interpretation: Report reviewed. cp 08/24 21:06 Order name: Troponin I; Complete Time: 21:46 cp 08/24 21:46 Interpretation: Reviewed. cp 08/24 17:33 Order name: Accucheck Blood Glucose; Complete Time: 17:59 cp 08/24 17:33 Order name: Orthostatics; Complete Time: 17:59 cp 08/24 17:54 Order name: EKG; Complete Time: 17:54 cp 08/24 17:54 Order name: Cardiac monitoring; Complete Time: 17:59 cp 08/24 17:54 Order name: EKG - Nurse/Tech; Complete Time: 17:59 cp 08/24 17:54 Order name: IV Saline Lock; Complete Time: 17:59 cp 08/24 17:54 Order name: Labs collected and sent; Complete Time: 17:59 cp 08/24 17:54 Order name: O2 Per Protocol; Complete Time: 17:59 cp 08/24 17:54 Order name: O2 Sat Monitoring; Complete Time: 17:59 cp 08/24 21:06 Order name: EKG; Complete Time: 21:07 cp 08/24 17:55 Order name: Urine Dipstick-Ancillary (obtain specimen); Complete Time: 17:58 cp 08/24 17:55 Order name: Urine Test (obtain specimen); Complete Time: 17:58 cp 08/24 19:24 Order name: Accucheck Blood Glucose; Complete Time: 19:40 cp 08/24 21:06 Order name: EKG - Nurse/Tech; Complete Time: 21:30 cp EC:00 Rate is 90 beats/min. Rhythm is regular. CO interval is normal. QRS interval is normal. cp QT interval is normal. T waves are Flattened in lead III. Interpreted by me. Reviewed by me. 21:30 Rate is 77 beats/min. Rhythm is regular. CO interval is normal. QRS interval is normal. cp QT interval is normal. T waves are Flattened in lead III. Interpreted by me. Reviewed by me. Administered Medications: 18:06 Drug: Insulin Regular Human 10 units {Co-Signature: la1 (Vin Arthur RN).} Route: IVP; hb Site: right antecubital; 18:53 Follow up: Response: No adverse reaction; Blood sugar is lowered la1 18:07 Drug: NS 0.9% 1000 ml Route: IV; Rate: 1 bolus; Site: right antecubital; hb 18:53 Follow up: IV Status: Completed infusion la1 21:21 Drug: Zofran 4 mg Route: IVP; Site: right antecubital; tl2 22:37 Follow up: Response: No adverse reaction; Nausea is decreased tl2 21:21 Drug: NS 0.9% 1000 ml Route: IV; Rate: 1 bolus; Site: right antecubital; tl2 22:36 Follow up: IV Status: Completed infusion; IV Intake: 1000ml tl2 21:22 Drug: Reglan 20 mg Route: IVP; Site: right antecubital; tl2 22:37 Follow up: Response: No adverse reaction; Pain is decreased tl2 21:22 Drug: TORadol 30 mg Route: IVP; Site: right antecubital; tl2 22:37 Follow up: Response: No adverse reaction; Pain is decreased tl2 21:22 Not Given (Do not have in facility): Benadryl 25 mg IVP once tl2 Point of Care Testing: Blood Glucose: 17:59 Blood Glucose: 356 mg/dL; la1 18:52 Blood Glucose: 230 mg/dL; la1 19:43 Blood Glucose: 236 mg/dL; tl2 Ranges: Critical Glucose Levels:Adult <50 mg/dl or >400 mg/dl <40 mg/dl or >180 mg/dl Disposition: 08/25 02:01 Co-signature as Attending Physician, Yordan Ricks MD Available for consultation at ps1 all times. . Disposition: 08/24/18 21:53 Discharged to Home. Impression: Other chest pain, Diabetes mellitus due to underlying condition with hyperglycemia, Headache, Dizziness and giddiness. - Condition is Stable. - Discharge Instructions: Nonspecific Chest Pain, Type 2 Diabetes Mellitus, Diagnosis, Adult, Dizziness, General Headache Without Cause, Blood Glucose Monitoring, Adult, Aspirin and Your Heart. - Prescriptions for Zofran 4 mg Oral Tablet - take 1 tablet by ORAL route every 12 hours As needed; 20 tablet. Metformin 500 mg Oral Tablet - take 1 tablet by ORAL route once daily for 7 days Then take 1 tablet with morning meals AND evening meals; 60 tablet. - Medication Reconciliation Form, Thank You Letter, Antibiotic Education, Prescription Opioid Use form. - Follow up: Private Physician; When: 1 - 2 days; Reason: Recheck today's complaints. - Problem is new. - Symptoms have improved. Signatures: Dispatcher [employer] EDWandy Summers, RN RN aj1 Edward Hernandez PA PA cp Chrissy Santillan, RN RN Anna Valladares RN RN tl2 Yordan Ricks MD MD ps1 Attema, Lee RN la1 Vin Arthur RN la1 Corrections: (The following items were deleted from the chart) 08/24 18:26 18:26 Normal except: RBC 5.68; HGB 15.6; HCT 47.2. cp cp 22:38 21:53 08/24/2018 21:53 Discharged to Home. Impression: Other chest pain; Diabetes tl2 mellitus due to underlying condition with hyperglycemia; Headache; Dizziness and giddiness. Condition is Stable. Forms are Medication Reconciliation Form, Thank You Letter, Antibiotic Education, Prescription Opioid Use. Follow up: Private Physician; When: 1 - 2 days; Reason: Recheck today's complaints. Problem is new. Symptoms have improved. cp
--- NOTE | 2018-08-25 07:13 | EKG ---
Test Date: 2018-08-24 Test Time: 17:51:55 [employer] Supervisor: MARIAN MEASUREMENT RESULTS: Intervals: Rate: 90 RI: 146 QRSD: 82 QT: 364 QTc: 445 [place]: P: 12 RI: 146 QRS: 31 T: 38 INTERPRETIVE STATEMENTS: Normal sinus rhythm Normal ECG No previous ECG available for comparison Electronically Signed On 08-25-18 07:12:20 CDT by Rashaun Stiles
--- NOTE | 2018-08-26 07:33 | EKG ---
Test Date: 2018-08-24 Test Time: 21:26:09 Table Machine Operator: SWATHI MEASUREMENT RESULTS: Intervals: Rate: 77 [place]: 154 QRSD: 86 QT: 396 QTc: 448 [place]: P: 23 [place]: 154 QRS: 15 T: 23 INTERPRETIVE STATEMENTS: Normal sinus rhythm with sinus arrhythmia Possible Anterior infarct, age undetermined Abnormal ECG Compared to ECG 08/24/2018 17:51:55 Myocardial infarct finding now present Electronically Signed On 08-26-18 07:28:11 CDT by Anselmo Petersen
== END 2018-08-24 22:38 | disposition home or self-care (01) ==
LOC: ER 17:07
DX: E11.65 Type 2 diabetes mellitus with hyperglycemia (principal); R51 Headache; R07.89 Other chest pain; Z88.0 Allergy status to penicillin; Z88.5 Allergy status to narcotic agent; Z88.8 Allergy status to other drugs, medicaments and biological substances; Z91.048 Other nonmedicinal substance allergy status
CPT/HCPCS: 36415; 70450; 71045; 80048; 80076; 81003; 81025; 82962; 83735; 83880; 84484; 85025; 85379; 85610; 93005; 96361; 96374; 96375; 99285; J2405; J2765; J7030

== ENCOUNTER 2018-09-29 07:38 | Emergency (ER) | payer SELFPAY ==
--- OUTSIDE RECORDS SUMMARY | 2018-09-29 07:40 | XMS REPORT ---
:1990 Author Organization [facility] Address [address] [place] [id number] Care Team Providers Name Role Phone NIKO [...] NEGATIVE Ketones (test code=UKET) NEGATIVE NEGATIVE Specific [place] (test code=USPGR) 1.010 1.005-1.030 Blood (test code=UBLD) [...] (test code=UBACT) 2+ None Seen,Trace TEST, Serum [id number] 20:28:00 Test Item Value Reference Range Comments (Serum) (test code=PREGS) Negative Negative ACETONE, [id number] 20:27:00 Test Item Value Reference Range Comments Acetone Serum (test code=ACETO) Negative Acetone Titer (test code=ACETIT) n/a [id number] 20:22:00 Test Item Value Reference Range Comments [...] mL/min/1.73m\S\2 EGFR if Non- >60 Estimated Glomerular [place] (test mL/min/1.73m\S\2 Filtration Rate (eGFR) code=EGFRNA) Reference [...] of chronic kidney failure. CBC WITH AUTO [id number] 19:53:00 Test Item Value Reference Range Comments [...]
[2018-09-29] MEDS ORDERED: FENTANYL CITR 100 MCG/2 ML ONE (08:54)
[2018-09-29] MEDS ORDERED: ONDANSETRON 4 MG/2 ML VIAL ONE (08:55)
[2018-09-29] MEDS ORDERED: NA CHLORIDE 0.9% 1,000 ML ONE (08:55)
[2018-09-29 09:02] LABS: Absolute Monocytes 0.6 K/uL (0.1-1.3); Absolute Neutrophil 6.1 K/uL (1.8-8.0); Basophils % 0.5 % (0-1.3); Eosinophils % 1.3 % (0-4.4); Hematocrit 46.1 % (36.0-45.0); Lymphocytes % 22.9 % (15.3-44.8); MCH 27.5 pg (27.0-35.0); MPV 10.6 fL (7.6-11.3); Monocytes % 7.2 % (3.3-12.3); RBC Red Blood Cell Count 5.63 M/uL (3.86-4.86)
[2018-09-29 09:09] LABS: Urine Blood 3+ (NEG); Urine Glucose 2+ (NEG); Urine Protein 2+ (NEG); Urine Specific Gravity 1.025 (1.005-1.030); Urine pH 5.5 (5.0-7.0)
[2018-09-29 09:11] LABS: BUN Blood Urea Nitrogen 9 mg/dL (7-18); Bicarbonate 26 mmol/L (21-32); Glucose Level 304 mg/dL (74-106); Lipase 244 U/L (73-393); Potassium 3.8 mmol/L (3.5-5.1); Sodium Level 137 mmol/L (136-145)
[2018-09-29 09:12] LABS: HCG, Quantitative < 1 mIU/mL (1-3)
[2018-09-29] MEDS ORDERED: INSULIN -REGULAR HUMAN 50 UNIT/0.5 ML ML ONE (10:04)
[2018-09-29] MEDS ORDERED: KETOROLAC 30 MG/ML INJ ONE (10:05)
[2018-09-29 10:53] LABS: Protime INR 1.11
[2018-09-29 10:57] LABS: T3 Free 3.6 pg/mL (2.18-3.98)
[2018-09-29 11:01] LABS: Thyroid Stimulating Hormone 4.13 uIU/mL (0.360-3.740)
--- NOTE | 2018-09-29 11:09 | RAD REPORT ---
EXAM DESCRIPTION: US - Transvaginal Study Probe - 09/29/2018 10:32 am CLINICAL HISTORY: Pelvic pain, hyper menorrhagia COMPARISON: None. TECHNIQUE: Endovaginal sonography was performed. FINDINGS: Nabothian cysts are present in the cervical canal and there is heterogeneous material cons istent with hemorrhage in the cervical canal. More superiorly in the uterus the endometrial stripe is 10 mm in thickness. A discrete endometrial mass or polyp is not identified. Uterus is 7.9 x 4.1 x 4.3 cm. No myometrial mass is identifiable. No free fluid or blood in the cul-de-sac. Both ovaries are identified. Right ovary measures larger than the left. No discrete solid or cystic m ass of the right ovary identifiable. An exophytic left ovarian cysts present 14 mm in size. No fallop arlen tube dilatation. Overall pelvic detail was limited. Patient was in significant pain which limited optimal positioning of the ultrasound probe. IMPRESSION: Small amount of hemorrhagic material is seen in the cervical canal. More proximally the endometrial cavity shows no defined mass or polyp. Ovaries are asymmetric in size though without suspicious ovarian or adnexal finding.
--- NOTE | 2018-09-29 11:20 | ER ---
Nurse's Notes [facility] Name: Demetria Chamberlain Age: 28 yrs Sex: Female : 1990 Arrival Date: 09/29/2018 Time: 07:42 Bed 5 Private MD: None, None Diagnosis: Diabetes mellitus due to underlying condition with hyperglycemia;Abnormal uterine and vaginal bleeding, unspecified Presentation: 09/29 08:08 Presenting complaint: Patient states: vaginal bleeding with clots for 4 to 5 days. ca1 Patient also reports lower abdominal pain and nausea. Denies vomiting. Transition of care: patient was not received from another setting of care. Onset of symptoms was September 2018. Risk Assessment: Do you want to hurt yourself or someone else? Patient reports no desire to harm self or others. Initial Sepsis Screen: Does the patient meet any 2 criteria? No. Patient's initial sepsis screen is negative. Initial Sepsis Screen: Does the patient have a suspected source of infection? No. Patient's initial sepsis screen is negative. Care prior to arrival: None. 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 ca1 Historical: - Allergies: 08:16 Iodine; ca1 08:16 Morphine; ca1 08:16 PENICILLINS; ca1 08:16 Tape; ca1 08:16 Tussionex Pennkinetic ER; ca1 - PMHx: 08:16 Diabetes - IDDM; ca1 - PSHx: 08:16 Tonsillectomy; ca1 - Social history:: Smoking status: Patient/guardian denies using tobacco. - Ebola Screening: : No symptoms or risks identified at this time. Screenin:38 Abuse screen: Denies threats or abuse. Denies injuries from another. Nutritional bp screening: No deficits noted. Tuberculosis screening: No symptoms or risk factors identified. Fall Risk None identified. Assessment: 08:08 General: Appears uncomfortable, Behavior is crying. Pain: Complains of pain in right aa5 lower quadrant and left lower quadrant Pain does not radiate. Pain currently is 9 out of 10 on a pain scale. Quality of pain is described as crampy, Pain began 4-5 days ago Is continuous. Neuro: Level of Consciousness is awake, alert, obeys commands, Oriented to person, place, time, situation. Cardiovascular: Heart tones S1 S2 present Rhythm is regular. Respiratory: Airway is patent Respiratory effort is even, unlabored, Respiratory pattern is regular, symmetrical, Breath sounds are clear bilaterally. GI: Abdomen is round Bowel sounds present X 4 quads. Abd is soft X 4 quads Abdomen is tender to palpation in right lower quadrant and left lower quadrant Reports nausea, Patient currently denies vomiting. : Urine is blood tinged, Reports vaginal bleeding that is bright red, with clots, moderate flow. EENT: No signs and/or symptoms were reported regarding the EENT system. Derm: Skin is pink, warm \\T\\ dry. Musculoskeletal: Range of motion: intact in all extremities. 08:08 Reassessment: Pt states "I've been out of my insulin for about a month because I don't aa5 have insurance" . 09:05 Reassessment: Patient and/or family updated on plan of care and expected duration. Pain aa5 level reassessed. Patient is alert, oriented x 3, equal unlabored respirations, skin warm/dry/pink. Pt appears calm, pt states "I am going to try to sleep" . 09:30 Reassessment: Patient is alert, oriented x 3, equal unlabored respirations, skin aa5 warm/dry/pink. Patient states feeling better. Pain: Pain currently is 4 out of 10 on a pain scale. 10:30 Reassessment: Patient and/or family updated on plan of care and expected duration. Pain aa5 level reassessed. Patient is alert, oriented x 3, equal unlabored respirations, skin warm/dry/pink. Pt appears comfortable, no resting with eyes closed. . 11:35 Reassessment: Patient is alert, oriented x 3, equal unlabored respirations, skin aa5 warm/dry/pink. Vital Signs: 08:16 BP 150 / 105; Pulse 91; Resp 20 S; Temp 98.8(O); Pulse Ox 98% on R/A; Weight 97.52 kg ca1 (R); Pain 9/10; 08:55 BP 121 / 97 Supine; Pulse 95; Pulse Ox 98% ; aa5 08:57 BP 140 / 102 Sitting; Pulse 107; aa5 08:59 BP 147 / 124 Standing; Pulse 104; aa5 09:24 BP 110 / 99; Pulse 91; Resp 18; Pulse Ox 99% on R/A; mh5 10:20 BP 127 / 75; Pulse 80; Resp 14 S; Pulse Ox 97% on R/A; mh5 11:20 BP 120 / 72; Pulse 80; Resp 16 S; Temp 97.6(TE); Pulse Ox 98% on R/A; Pain 5/10; aa5 08:57 Pt started crying when placed in sitting position, pt still wants to continue with aa5 orthostatics. 08:59 Pt crying during standing, pt states "it hurts too bad" aa5 ED Course: 07:42 Patient arrived in ED. mr 07:42 None, None is Private Physician. mr 07:55 Edward Hernandez PA is PHCP. cp 07:55 Po Paul MD is Attending Physician. cp 08:08 Rose Gtz, JALEN is Primary Nurse. ca1 08:14 Triage completed. ca1 08:14 Arm band placed on. ca1 08:38 Patient has correct armband on for positive identification. Bed in low position. Call bp light in reach. Side rails up X2. Adult w/ patient. 08:38 Inserted saline lock: 20 gauge in right forearm, using aseptic technique. Blood bp collected. 09:50 Assist provider with pelvic exam: Set up pelvic tray. Performed by Edward RODGERS aa5 Specimens sent to lab. Patient tolerated poorly. 10:32 Ultrasound completed. Patient moved back from ultrasound. hr 10:33 Transvaginal Study Probe In Process Unspecified. EDMS 11:18 Taylor Griggs MD is Referral Physician. cp 11:35 IV discontinued, intact, bleeding controlled, No redness/swelling at site. Pressure aa5 dressing applied. Administered Medications: 08:19 CANCELLED (Physician Discretion): morphine 4 mg IVP once ca1 09:05 Drug: Zofran 4 mg Route: IVP; Site: right forearm; aa5 09:10 Follow up: Response: No adverse reaction aa5 09:05 Drug: NS 0.9% 1000 ml Route: IV; Rate: 1 bolus; Site: right forearm; aa5 09:55 Follow up: IV Status: Completed infusion aa5 09:07 Drug: fentaNYL (PF) 25 mcg Route: IVP; Site: right forearm; aa5 09:30 Follow up: Response: No adverse reaction; Marked relief of symptoms; Pain is decreased aa5 09:55 Drug: TORadol 30 mg Route: IVP; Site: right forearm; aa5 10:00 Follow up: Response: No adverse reaction aa5 09:56 Drug: fentaNYL (PF) 25 mcg Route: IVP; Site: right forearm; aa5 10:05 Follow up: Response: No adverse reaction aa5 09:57 Drug: NovoLIN R 10 units {Co-Signature: bp (Domenico Diaz RN).} Route: Sub-Q; Site: aa5 right lower abdomen; 10:30 Follow up: Response: No adverse reaction aa5 Outcome: 11:19 Discharge ordered by MD. cp 11:35 Discharged to home ambulatory, with family. aa5 11:35 Condition: improved 11:35 Discharge instructions given to patient, Instructed on discharge instructions, follow up and referral plans. medication usage, Demonstrated understanding of instructions, follow-up care, medications, Prescriptions given X 3. 11:40 Patient left the ED. aa5 Signatures: Dispatcher [employer] EDMT Mary Anne Simms Haley Karyna Myers, RN RN aa5 Edward Hernandez PA PA cp Martinez, Maria [facility] Domenico Diaz RN RN bp Acob, Cheryl, RN RN ca1 Domenico Diaz RN bp Corrections: (The following items were deleted from the chart) 10:53 09:39 BP 110 / 99; Pulse 91bpm; Resp 18bpm; Pulse Ox 99% RA; mh5 5 18:11 10:30 Reassessment: Patient and/or family updated on plan of care and expected aa5 duration. Pain level reassessed. Patient is alert, oriented x 3, equal unlabored respirations, skin warm/dry/pink. aa5 18:12 10:30 Reassessment: Patient and/or family updated on plan of care and expected aa5 duration. Pain level reassessed. Patient is alert, oriented x 3, equal unlabored respirations, skin warm/dry/pink. aa5
--- NOTE | 2018-09-29 11:21 | EDPHYS ---
Physician Documentation [facility] Name: Demetria Chamberlain Age: 28 yrs Sex: Female : 1990 Arrival Date: 09/29/2018 Time: 07:42 Bed 5 Private MD: None, None ED Physician Po Paul HPI: 09/29 08:12 This 28 yrs old Female presents to ER via Unassigned with complaints of cp Vaginal Bleeding. 08:12 The patient presents with vaginal bleeding that is with clots. Onset: The cp symptoms/episode began/occurred 5 day(s) ago. Associated signs and symptoms: Pertinent positives: vaginal bleeding, lower abdominal pain. Severity of symptoms: in the emergency department the symptoms are unchanged, despite home interventions. The patient's method of control includes nothing. 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 ca1 Historical: - Allergies: 08:16 Iodine; ca1 08:16 Morphine; ca1 08:16 PENICILLINS; ca1 08:16 Tape; ca1 08:16 Tussionex Pennkinetic ER; ca1 - PMHx: 08:16 Diabetes - IDDM; ca1 - PSHx: 08:16 Tonsillectomy; ca1 - Social history:: Smoking status: Patient/guardian denies using tobacco. - Ebola Screening: : No symptoms or risks identified at this time. ROS: 08:14 Eyes: Negative for injury, pain, redness, and discharge. cp 08:14 Constitutional: Negative for body aches, chills, fever, poor PO intake. 08:14 ENT: Negative for drainage from ear(s), ear pain, sore throat, difficulty swallowing, difficulty handling secretions. 08:14 Cardiovascular: Negative for chest pain, edema, palpitations. 08:14 Respiratory: Negative for cough, shortness of breath, wheezing. 08:14 Abdomen/GI: Positive for abdominal pain, of the suprapubic area, Negative for vomiting, diarrhea, constipation, anorexia, black/tarry stool, rectal bleeding. 08:14 : Positive for pelvic pain, vaginal bleeding, Negative for urinary symptoms. 08:14 Skin: Negative for cellulitis, rash. 08:14 Neuro: Negative for altered mental status, headache, weakness. 08:14 All other systems are negative. Exam: 10:00 Constitutional: The patient appears in no acute distress, alert, awake, non-toxic, well cp developed, well nourished, uncomfortable. 10:00 Head/Face: Normocephalic, atraumatic. cp 10:00 Eyes: Periorbital structures: appear normal, Conjunctiva: normal, no exudate, no injection, Sclera: no appreciated abnormality, Lids and lashes: appear normal, bilaterally. 10:00 ENT: External ear(s): are unremarkable, Nose: is normal, Mouth: Lips: moist, Oral mucosa: pink and intact, moist, Posterior pharynx: is normal, airway is patent, no erythema, no exudate. 10:00 Neck: ROM/movement: is normal, is supple, without pain, no range of motions limitations, no nuchal rigidity. 10:00 Chest/axilla: Inspection: normal, Palpation: is normal, no crepitus, no tenderness. 10:00 Cardiovascular: Rate: normal, Rhythm: regular, Edema: is not appreciated, JVD: is not appreciated. 10:00 Respiratory: the patient does not display signs of respiratory distress, Respirations: normal, no use of accessory muscles, no retractions, no splinting, no tachypnea, labored breathing, is not present, Breath sounds: are clear throughout, no decreased breath sounds, no stridor, no wheezing. 10:00 Abdomen/GI: Inspection: abdomen appears normal, Bowel sounds: active, all quadrants, Palpation: soft, in all quadrants, moderate abdominal tenderness, in the suprapubic area, rebound tenderness, is not appreciated, involuntary guarding, is not appreciated. 10:00 Back: pain, is absent, ROM is normal. 10:00 : Pelvic Exam: External exam: is normal, Speculum exam: moderate bleeding, blood clots in vaginal vault, os that is closed, no tissue in cervix is seen, no tissue in vagina is seen, bimanual exam reveals uterine tenderness, right adnexal tenderness, left adnexal tenderness, no adnexal mass on right, no adnexal mass on left, discharge, bloody, the nurse was present for the exam, Sexual behavior: the patient is sexually active. 10:00 Skin: cellulitis, is not appreciated, no rash present. 10:00 Neuro: Orientation: to person, place \\T\\ time. Mentation: is normal, Cerebellar function: is grossly normal, Motor: moves all fours, strength is normal, Sensation: is normal. Vital Signs: 08:16 BP 150 / 105; Pulse 91; Resp 20 S; Temp 98.8(O); Pulse Ox 98% on R/A; Weight 97.52 kg ca1 (R); Pain 9/10; 08:55 BP 121 / 97 Supine; Pulse 95; Pulse Ox 98% ; aa5 08:57 BP 140 / 102 Sitting; Pulse 107; aa5 08:59 BP 147 / 124 Standing; Pulse 104; aa5 09:24 BP 110 / 99; Pulse 91; Resp 18; Pulse Ox 99% on R/A; mh5 10:20 BP 127 / 75; Pulse 80; Resp 14 S; Pulse Ox 97% on R/A; mh5 11:20 BP 120 / 72; Pulse 80; Resp 16 S; Temp 97.6(TE); Pulse Ox 98% on R/A; Pain 5/10; aa5 08:57 Pt started crying when placed in sitting position, pt still wants to continue with aa5 orthostatics. 08:59 Pt crying during standing, pt states "it hurts too bad" aa5 MDM: 07:56 Patient medically screened. cp 08:30 Differential diagnosis: cervicitis, dysmenorrhea, ectopic , menorrhea, ovarian cp cyst, pelvic inflammatory disease, ruptured ectopic , urinary tract infection. 11:15 Data reviewed: vital signs, nurses notes, lab test result(s), radiologic studies, cp ultrasound, and as a result, I will discharge patient. 09/29 08:11 Order name: Quantitative Hcg; Complete Time: 09:37 09/29 08:11 Order name: Abo/rh Typing; Complete Time: 09:37 09/29 08:11 Order name: Basic Metabolic Panel; Complete Time: 09:37 09/29 09:37 Interpretation: Normal except: GLUC 304; GFR 87. 09/29 08:11 Order name: CBC with Diff; Complete Time: 09:37 09/29 09:37 Interpretation: Normal except: RBC 5.63; HGB 15.5; HCT 46.1. 09/29 08:11 Order name: PT-INR; Complete Time: 11:01 09/29 11:01 Interpretation: PT 13.1; Reviewed. 09/29 08:11 Order name: Ptt, Activated; Complete Time: 11:01 09/29 08:11 Order name: Lipase; Complete Time: 09:37 09/29 08:11 Order name: GC (GONORR/CHLAMYDIA) Probe 09/29 08:42 Order name: Urine Dipstick--Ancillary (enter results); Complete Time: 09:37 09/29 09:53 Interpretation: Normal except: UGLUC 2+; UBLD 3+; UPROT 2+. 09/29 08:42 Order name: Urine --Ancillary (enter results); Complete Time: 09:37 09/29 09:19 Order name: ABO/RH no charge; Complete Time: 09:37 EDOH 09/29 09:37 Order name: TSH 09/29 11:13 Interpretation: Abnormal: TSH 4.130. 09/29 09:37 Order name: T3 Free 09/29 11:01 Order name: T4 Free EDOH 09/29 08:11 Order name: Orthostatics; Complete Time: 09:18 09/29 08:11 Order name: Urine Test (obtain specimen); Complete Time: 08:40 09/29 08:11 Order name: IV Saline Lock; Complete Time: 08:38 09/29 08:11 Order name: Labs collected and sent; Complete Time: 08:38 09/29 08:11 Order name: NPO; Complete Time: 08:20 09/29 08:11 Order name: Urine Dipstick-Ancillary (obtain specimen); Complete Time: 08:40 09/29 08:11 Order name: Pelvic Exam Setup; Complete Time: 10:13 09/29 10:33 Order name: Transvaginal Study Probe; Complete Time: 11:11 [facility] 09/29 08:59 Order name: Labs - recollect needed; Complete Time: 10:17 eb Administered Medications: 08:19 CANCELLED (Physician Discretion): morphine 4 mg IVP once ca1 09:05 Drug: Zofran 4 mg Route: IVP; Site: right forearm; aa5 09:10 Follow up: Response: No adverse reaction aa5 09:05 Drug: NS 0.9% 1000 ml Route: IV; Rate: 1 bolus; Site: right forearm; aa5 09:55 Follow up: IV Status: Completed infusion aa5 09:07 Drug: fentaNYL (PF) 25 mcg Route: IVP; Site: right forearm; aa5 09:30 Follow up: Response: No adverse reaction; Marked relief of symptoms; Pain is decreased aa5 09:55 Drug: TORadol 30 mg Route: IVP; Site: right forearm; aa5 10:00 Follow up: Response: No adverse reaction aa5 09:56 Drug: fentaNYL (PF) 25 mcg Route: IVP; Site: right forearm; aa5 10:05 Follow up: Response: No adverse reaction aa5 09:57 Drug: NovoLIN R 10 units {Co-Signature: bp (Domenico Diaz RN).} Route: Sub-Q; Site: aa5 right lower abdomen; 10:30 Follow up: Response: No adverse reaction aa5 Disposition: 18:51 Co-signature as Attending Physician, Po Paul MD I agree with the assessment and kdr plan of care. Disposition: 09/29/18 11:19 Discharged to Home. Impression: Diabetes mellitus due to underlying condition with hyperglycemia, Abnormal uterine and vaginal bleeding, unspecified. - Condition is Stable. - Discharge Instructions: Abnormal Uterine Bleeding, Type 2 Diabetes Mellitus, Diagnosis, Adult, Complementary and Alternative Medical Therapies for Diabetes, Blood Glucose Monitoring, Adult, Diabetes Mellitus and Food. - Prescriptions for Metformin 500 mg Oral Tablet - take 1 tablet by ORAL route once daily for 7 days Then take 1 tablet with morning meals AND evening meals; 60 tablet. Anaprox DS 550 mg Oral Tablet - take 1 tablet by ORAL route every 12 hours As needed; 20 tablet. Tramadol 50 mg Oral Tablet - take 1 tablet by ORAL route every 8 hours as needed; 15 tablet. - Medication Reconciliation Form, Thank You Letter, Antibiotic Education, Prescription Opioid Use form. - Follow up: Taylor Griggs MD; When: 2 - 3 days; Reason: Recheck today's complaints. Follow up: Private Physician; When: 1 - 2 days; Reason: diabetes mellitis. - Problem is new. - Symptoms have improved. Signatures: Dispatcher [employer] EDPo Mayo MD MD [facility] Karyna Lozano RN RN aa5 Edward Hernandez PA PA cp Kerri Tran Cheryl RN RN ca1 Domenico Diaz RN bp Corrections: (The following items were deleted from the chart) 08:19 08:11 morphine 4 mg IVP once ordered. cp ca1 10:33 09:54 Pelvis Complete+US.RAD.BRZ ordered. EDMS EDMS 11:40 11:19 09/29/2018 11:19 Discharged to Home. Impression: Diabetes mellitus due to aa5 underlying condition with hyperglycemia; Abnormal uterine and vaginal bleeding, unspecified. Condition is Stable. Forms are Medication Reconciliation Form, Thank You Letter, Antibiotic Education, Prescription Opioid Use. Follow up: Mini Rekhi; When: 2 - 3 days; Reason: Recheck today's complaints. Follow up: Private Physician; When: 1 - 2 days; Reason: diabetes mellitis. Problem is new. Symptoms have improved. cp
[2018-10-02 01:40] LABS: C.trachomatis RNA,TMA Not Detected (Not Detected)
== END 2018-09-29 11:40 | disposition home or self-care (01) ==
LOC: ER 07:38
DX: N93.9 Abnormal uterine and vaginal bleeding, unspecified (principal); E08.65 Diabetes mellitus due to underlying condition with hyperglycemia; Z88.0 Allergy status to penicillin; Z88.5 Allergy status to narcotic agent; Z88.8 Allergy status to other drugs, medicaments and biological substances; Z91.048 Other nonmedicinal substance allergy status
CPT/HCPCS: 36415; 76830; 80048; 81003; 81025; 83690; 84439; 84443; 84481; 84702; 85025; 85610; 85730; 86900; 86901; 87490; 87590; 96361; 96372; 96374; 96375; 99284; J2405; J3010; J7030

== ENCOUNTER 2019-04-15 15:56 | Emergency (ER) | payer OTHER, SELFPAY ==
--- OUTSIDE RECORDS SUMMARY | 2019-04-15 15:58 | XMS REPORT ---
:1990 [facility] [address] [place] [address] Care Team Providers Name Role Phone NIKO [...] NEGATIVE Ketones (test code=UKET) NEGATIVE NEGATIVE Specific Michael (test code=USPGR) 1.010 1.005-1.030 Blood (test code=UBLD) [...] (test code=UBACT) 2+ None Seen,Trace TEST, Serum [id number] 20:28:00 Test Item Value Reference Range Comments (Serum) (test code=PREGS) Negative Negative ACETONE, [id number] 20:27:00 Test Item Value Reference Range Comments Acetone Serum (test code=ACETO) Negative Acetone Titer (test code=ACETIT) n/a [id number] 20:22:00 Test Item Value Reference Range Comments [...] mL/min/1.73m\S\2 EGFR if Non- >60 Estimated Glomerular [place] (test mL/min/1.73m\S\2 Filtration Rate (eGFR) code=EGFRNA) Reference [...] of chronic kidney failure. CBC WITH AUTO [id number] 19:53:00 Test Item Value Reference Range Comments [...]
--- NOTE | 2019-04-15 16:35 | ER ---
Nurse's Notes [facility] Name: Demetria Chamberlain Age: 29 yrs Sex: Female : 1990 Arrival Date: 04/15/2019 Time: 15:59 Bed 9 Private MD: None, None Diagnosis: Pain in right knee Presentation: 04/15 16:00 Presenting complaint: Patient states: I partially tore my acl six months ago (right), la1 today I slipped on a pile of sand in the bathroom at [facility]. Pt reports pain to medial aspect of right knee. Transition of care: patient was not received from another setting of care. Onset of symptoms was April 15, 2019. Risk Assessment: Do you want to hurt yourself or someone else? Patient reports no desire to harm self or others. Initial Sepsis Screen: Does the patient meet any 2 criteria? No. Patient's initial sepsis screen is negative. Does the patient have a suspected source of infection? No. Patient's initial sepsis screen is negative. Care prior to arrival: None. 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 - Social history:: Smoking status: Patient/guardian denies using tobacco. - Ebola Screening: : No symptoms or risks identified at this time. Screenin:05 Abuse screen: Denies threats or abuse. Nutritional screening: No deficits noted. la1 Tuberculosis screening: No symptoms or risk factors identified. Fall Risk None identified. Assessment: 16:05 General: Appears in no apparent distress. Behavior is calm, cooperative. Pain: la1 Complains of pain in medial aspect of right knee. Neuro: Level of Consciousness is awake, alert, obeys commands. Cardiovascular: Capillary refill < 3 seconds Patient's skin is warm and dry. Respiratory: Airway is patent Respiratory effort is even, unlabored, Respiratory pattern is regular, symmetrical. GI: No signs and/or symptoms were reported involving the gastrointestinal system. : No signs and/or symptoms were reported regarding the genitourinary system. Musculoskeletal: Circulation, motion, and sensation intact. Capillary refill < 3 seconds. 17:06 Reassessment: Patient appears in no apparent distress at this time. No changes from la1 previously documented assessment. Patient and/or family updated on plan of care and expected duration. Pain level reassessed. Vital Signs: 16:02 BP 143 / 97; Pulse 105; Resp 16; Temp 97.6; Pulse Ox 98% on R/A; Weight 89.81 kg; la1 Height 5 ft. 5 in. (165.10 cm); 16:02 Body Mass Index 32.95 (89.81 kg, 165.10 cm) la1 ED Course: 15:59 Patient arrived in ED. ag5 15:59 None, None is Private Physician. ag5 16:01 Triage completed. la1 16:01 Arm band placed on left wrist. la1 16:05 Edward Hernandez PA is PHCP. cp 16:05 Lincoln Ann MD is Attending Physician. cp 16:05 Call light in reach. la1 16:24 Knee Right 3 View XRAY In Process Unspecified. EDMS 16:30 Vin Arthur RN is Primary Nurse. la1 16:34 Ajay Villa MD is Referral Physician. cp 17:06 No provider procedures requiring assistance completed. Patient did not have IV access la1 during this emergency room visit. Administered Medications: 16:30 Drug: Ibuprofen 800 mg Route: PO; la1 16:55 Follow up: Response: No adverse reaction la1 16:30 Drug: Tylenol 1000 mg Route: PO; la1 16:55 Follow up: Response: No adverse reaction la1 Outcome: 16:35 Discharge ordered by MD. cp 17:07 Discharged to home ambulatory. la1 17:07 Condition: stable 17:07 Discharge instructions given to patient, Instructed on discharge instructions, follow up and referral plans. medication usage, Demonstrated understanding of instructions, follow-up care, medications, Prescriptions given X 2. 17:07 Patient left the ED. la1 Signatures: Dispatcher [employer] EDKS Vin Arthur RN RN la1 Page, Edward, PA PA cp Moni, Ajare ag5
--- NOTE | 2019-04-15 16:35 | EDPHYS ---
Physician Documentation [facility] Name: Demetria Chamberlain Age: 29 yrs Sex: Female : 1990 Arrival Date: 04/15/2019 Time: 15:59 Bed 9 Private MD: None, None ED Physician Lincoln Ann HPI: 04/15 16:10 This 29 yrs old Female presents to ER via Wheelchair with complaints of Fall cp Injury, Leg Injury. 16:10 Details of fall: The patient fell from an upright position, while walking, and struck a cp tile surface. Onset: The symptoms/episode began/occurred today. Associated injuries: The patient sustained right knee, painful injury, swelling. Patient reports partially tearing right ACL 6 months ago. No surgery required. 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 - Social history:: Smoking status: Patient/guardian denies using tobacco. - Ebola Screening: : No symptoms or risks identified at this time. ROS: 16:15 Constitutional: Negative for body aches, chills, fever, poor PO intake. cp 16:15 Eyes: Negative for injury, pain, redness, and discharge. cp 16:15 Neck: Negative for pain with movement, pain at rest, tenderness. 16:15 Cardiovascular: Negative for chest pain. 16:15 Respiratory: Negative for cough, shortness of breath, wheezing. 16:15 Abdomen/GI: Negative for abdominal pain, nausea, vomiting, and diarrhea. 16:15 Back: Negative for pain at rest, pain with movement. 16:15 MS/extremity: Positive for pain, swelling, tenderness, of the right knee, injury. 16:15 Neuro: Negative for altered mental status, headache, syncope, weakness. 16:15 All other systems are negative. Exam: 16:20 Head/Face: Normocephalic, atraumatic. cp 16:20 Constitutional: The patient appears in no acute distress, alert, awake, well developed, well nourished. 16:20 Musculoskeletal/extremity: ROM: limited passive range of motion due to pain, in the cp right knee, Perfusion: the extremity is normally perfused throughout, Sensation intact. Joints: All joints are normal except the medial aspect of right knee displays painful range of motion, swelling, tenderness. 16:20 Neck: External neck: is normal, ROM/movement: is normal, is supple, without pain, no cp range of motions limitations. 16:20 Back: pain, is absent, ROM is normal. 16:20 Cardiovascular: Rate: tachycardic. cp 16:20 Respiratory: the patient does not display signs of respiratory distress, Respirations: normal. Vital Signs: 16:02 BP 143 / 97; Pulse 105; Resp 16; Temp 97.6; Pulse Ox 98% on R/A; Weight 89.81 kg; la1 Height 5 ft. 5 in. (165.10 cm); 16:02 Body Mass Index 32.95 (89.81 kg, 165.10 cm) la1 MDM: 16:05 Patient medically screened. cp 16:20 Differential diagnosis: contusion, fracture, sprain, strain. cp 16:34 Data reviewed: vital signs, nurses notes, radiologic studies, plain films. cp 16:34 Test interpretation: by ED physician or midlevel provider: plain radiologic studies. cp Counseling: I had a detailed discussion with the patient and/or guardian regarding: the historical points, exam findings, and any diagnostic results supporting the discharge/admit diagnosis, radiology results, the need for outpatient follow up, for definitive care, a orthopedic surgeon, to return to the emergency department if symptoms worsen or persist or if there are any questions or concerns that arise at home. Response to treatment: the patient's symptoms have mildly improved after treatment, xrays of right knee negative for fracture, and as a result, I will discharge patient. 04/15 16:04 Order name: Knee Right 3 View XRAY; Complete Time: 16:58 la1 04/15 16:58 Interpretation: Report reviewed. 04/15 16:30 Order name: Benny wrap-joint; Complete Time: 16:58 la1 Administered Medications: 16:30 Drug: Ibuprofen 800 mg Route: PO; la1 16:55 Follow up: Response: No adverse reaction la1 16:30 Drug: Tylenol 1000 mg Route: PO; la1 16:55 Follow up: Response: No adverse reaction la1 Disposition: 04/16 15:22 Co-signature as Attending Physician, Lincoln Ann MD. Disposition: 04/15/19 16:35 Discharged to Home. Impression: Pain in right knee. - Condition is Stable. - Discharge Instructions: Knee Immobilizer, Knee Pain. - Prescriptions for Ibuprofen 800 mg Oral Tablet - take 1 tablet by ORAL route every 8 hours As needed take with food; 30 tablet. Tramadol 50 mg Oral Tablet - take 1 tablet by ORAL route every 8 hours as needed; 12 tablet. - Work release form, Medication Reconciliation Form, Thank You Letter, Antibiotic Education, Prescription Opioid Use form. - Follow up: Ajay Villa MD; When: 2 - 3 days; Reason: right knee injury. - Problem is new. - Symptoms have improved. Signatures: Dispatcher [employer] EDMS Vin Arthur RN RN la1 Edward Hernandez PA PA Lincoln White MD MD Corrections: (The following items were deleted from the chart) 04/15 16:30 16:16 Knee Immobilizer ordered. cp la1 16:30 16:16 Crutches ordered. cp la1 17:07 16:35 04/15/2019 16:35 Discharged to Home. Impression: Pain in right knee. Condition is la1 Stable. Forms are Medication Reconciliation Form, Thank You Letter, Antibiotic Education, Prescription Opioid Use. Follow up: Ajay Villa; When: 2 - 3 days; Reason: right knee injury. Problem is new. Symptoms have improved. cp
--- NOTE | 2019-04-15 16:41 | RAD REPORT ---
EXAM DESCRIPTION: RAD - Knee Right 3 View - 04/15/2019 4:24 pm CLINICAL HISTORY: PAIN COMPARISON: No comparisons FINDINGS: No bone or joint abnormality is detected.
[2019-04-15] MEDS ORDERED: IBUPROFEN 400 MG TAB ONE (16:42)
[2019-04-15] MEDS ORDERED: ACETAMINOPHEN 500 MG TAB ONE (16:42)
== END 2019-04-15 17:07 | disposition home or self-care (01) ==
LOC: ER 15:56
DX: M25.561 Pain in right knee (principal); E11.9 Type 2 diabetes mellitus without complications; Z88.5 Allergy status to narcotic agent; Z88.0 Allergy status to penicillin; Z88.8 Allergy status to other drugs, medicaments and biological substances
CPT/HCPCS: 99283

== ENCOUNTER 2019-05-18 18:00 | Emergency (ER) | payer SELFPAY ==
--- OUTSIDE RECORDS SUMMARY | 2019-05-18 18:03 | XMS REPORT ---
:1990 [facility] Address [address] [place] [address] Care Team Providers Name Role Phone NIKO [...] NEGATIVE Ketones (test code=UKET) NEGATIVE NEGATIVE Specific [place] (test code=USPGR) 1.010 1.005-1.030 Blood (test code=UBLD) [...] (test code=UBACT) 2+ None Seen,Trace TEST, Serum [id number] 20:28:00 Test Item Value Reference Range Comments (Serum) (test code=PREGS) Negative Negative ACETONE, [id number] 20:27:00 Test Item Value Reference Range Comments Acetone Serum (test code=ACETO) Negative Acetone Titer (test code=ACETIT) n/a [id number] 20:22:00 Test Item Value Reference Range Comments [...] mL/min/1.73m\S\2 EGFR if Non- >60 Estimated Glomerular [place] (test mL/min/1.73m\S\2 Filtration Rate (eGFR) code=EGFRNA) Reference [...] of chronic kidney failure. CBC WITH AUTO [id number] 19:53:00 Test Item Value Reference Range Comments [...]
[2019-05-18] MEDS ORDERED: NA CHLORIDE 0.9% 1,000 ML ONE ×2 (18:49→18:57)
[2019-05-18 18:54] LABS: Protime INR 1.04
[2019-05-18 18:55] LABS: Absolute Lymphocytes (CBC) 1.4 K/uL (0.7-4.9); Basophils % 0.4 % (0-1.3); Eosinophils % 0.9 % (0-4.4); Hematocrit 45.8 % (36.0-45.0); Lymphocytes % 14.3 % (15.3-44.8); Monocytes % 4.3 % (3.3-12.3); RBC Red Blood Cell Count 5.89 M/uL (3.86-4.86)
[2019-05-18] MEDS ORDERED: INSULIN -REGULAR HUMAN 50 UNIT/0.5 ML ML ONE (18:57)
--- NOTE | 2019-05-18 19:12 | RAD REPORT ---
EXAM DESCRIPTION: Parminder Single View05/18/2019 6:50 pm CLINICAL HISTORY: Chest pain COMPARISON: August 2018 FINDINGS: The lungs appear clear of acute infiltrate. The heart is normal size IMPRESSION: No acute abnormalities displayed
[2019-05-18 19:17] LABS: Barbiturates NEGATIVE (NEGATIVE); Benzodiazepines NEGATIVE (NEGATIVE); Cocaine NEGATIVE (NEGATIVE); METHAMPHETAM NEGATIVE (NEGATIVE); Methadone NEGATIVE (NEGATIVE); Opiates NEGATIVE (NEGATIVE); Phencyclidine NEGATIVE (NEGATIVE); THC Cannibis NEGATIVE (NEGATIVE)
[2019-05-18 19:20] LABS: ALT/SGPT 46 U/L (12-78); AST/SGOT 20 U/L (15-37); Albumin 3.5 g/dL (3.4-5.0); Alkaline Phosphatase 77 U/L (45-117); BUN Blood Urea Nitrogen 11 mg/dL (7-18); Bicarbonate 25 mmol/L (21-32); Bilirubin Direct < 0.1 mg/dL (0-0.2); Bilirubin Total 0.3 mg/dL (0.2-1.0); Lipase 265 U/L (73-393); NT PRO-BNP 50 pg/mL (<125); Potassium 4.2 mmol/L (3.5-5.1); Protein, Total 7.1 g/dL (6.4-8.2); Sodium Level 135 mmol/L (136-145); Troponin (Emerg Dept Use Only) < 0.02 ng/mL (0.0-0.045)
[2019-05-18 19:23] LABS: Glucose Level 499 mg/dL (74-106)
[2019-05-18 19:25] LABS: Urine Blood NEGATIVE (NEG); Urine Glucose 2+ (NEG); Urine Protein NEGATIVE (NEG); Urine pH 5.5 (5.0-7.0)
--- NOTE | 2019-05-18 20:30 | ER ---
Nurse's Notes [facility] Name: Demetria Chamberlain Age: 29 yrs Sex: Female : 1990 Arrival Date: 05/18/2019 Time: 18:01 Bed 25 Private MD: Diagnosis: Essential (primary) hypertension;Type 2 diabetes mellitus Presentation: 05/18 18:05 Presenting complaint: Upper abdominal pain, chest tightness, SOB, and palpitations x 2 hb hrs. Home SBP 150. Transition of care: patient was not received from another setting of care. Onset of symptoms was May 18, 2019. Risk Assessment: Do you want to hurt yourself or someone else? Patient reports no desire to harm self or others. Care prior to arrival: None. 18:05 Method Of Arrival: Ambulatory hb 18:05 Acuity: NIKUNJ 3 hb 20:00 Initial Sepsis Screen: Does the patient meet any 2 criteria? No. Patient's initial mg2 sepsis screen is negative. Does the patient have a suspected source of infection? No. Patient's initial sepsis screen is negative. 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 - Social history:: Smoking status: Patient/guardian denies using tobacco. - Ebola Screening: : No symptoms or risks identified at this time. Screenin:58 Abuse screen: Denies threats or abuse. Denies injuries from another. Nutritional mg2 screening: No deficits noted. Tuberculosis screening: No symptoms or risk factors identified. Fall Risk IV access (20 points). Assessment: 19:59 General: Appears in no apparent distress. comfortable, Behavior is calm, cooperative. mg2 Pain: Denies pain. Neuro: Level of Consciousness is awake, alert, obeys commands, Oriented to person, place, time, situation. Cardiovascular: Reports palpitations. Respiratory: Airway is patent Respiratory effort is even, unlabored, Respiratory pattern is regular, symmetrical. GI: No deficits noted. : No deficits noted. EENT: No deficits noted. Derm: Skin is intact, is healthy with good turgor, Skin is pink, warm \T\ dry. normal. Musculoskeletal: Circulation, motion, and sensation intact. Capillary refill < 3 seconds. Vital Signs: 18:06 BP 155 / 103; Pulse 94; Resp 16; Temp 98.4; Pulse Ox 100% on R/A; Weight 89.81 kg; hb Height 5 ft. 6 in. (167.64 cm); Pain 4/10; 18:24 BP 131 / 89; Pulse 94; Resp 18; Pulse Ox 99% on R/A; mg2 19:48 BP 122 / 76; Pulse 96; Resp 18; Pulse Ox 100% on R/A; mg2 20:46 BP 124 / 81; Pulse 92; Resp 18; Pulse Ox 98% on R/A; Pain 0/10; mg2 18:06 Body Mass Index 31.96 (89.81 kg, 167.64 cm) hb ED Course: 18:01 Patient arrived in ED. as 18:06 Triage completed. hb 18:07 Arm band placed on. hb 18:10 Trent Caicedo, RN is Primary Nurse. rv 18:23 Armand Ortiz, JALEN is Primary Nurse. mg2 18:23 Edward Page MD is Attending Physician. cr 18:51 XRAY Chest (1 view) In Process Unspecified. EDMS 19:00 Inserted saline lock: 20 gauge in left antecubital area, using aseptic technique. Blood mg2 collected. Patient maintains SpO2 saturation greater than 95% on room air. 19:58 No provider procedures requiring assistance completed. mg2 20:00 Patient has correct armband on for positive identification. electronic device monitor on. Pulse mg2 ox on. NIBP on. 20:29 Alonso Cooper MD is Referral Physician. cr 20:47 IV discontinued, intact, bleeding controlled, No redness/swelling at site. Pressure mg2 dressing applied. Administered Medications: 18:45 Drug: NS 0.9% 1000 ml Route: IV; Rate: 1 bolus; Site: left antecubital; rv 20:46 Follow up: Response: No adverse reaction; IV Status: Completed infusion; IV Intake: mg2 800ml 18:45 Drug: NS 0.9% 1000 ml Route: IV; Rate: 1 bolus; Site: left antecubital; rv 20:34 Follow up: Response: No adverse reaction; IV Status: Completed infusion; IV Intake: mg2 1000ml 18:45 Drug: Insulin Regular Human 10 units {Co-Signature: mg2 (Armand Ortiz RN).} Route: rv IVP; Site: left antecubital; 20:33 Follow up: Response: No adverse reaction; Blood sugar is lowered mg2 18:45 Drug: Insulin Regular Human 10 units {Co-Signature: mg2 (Armand Ortiz RN).} Route: rv Sub-Q; Site: left lower abdomen; 20:33 Follow up: Response: No adverse reaction; Blood sugar is lowered mg2 20:45 Not Given (Patient Refused): Lisinopril 5 mg PO once mg2 Point of Care Testing: Blood Glucose: 18:36 Blood Glucose: 439 mg/dL; lt1 19:58 Blood Glucose: 248 mg/dL; mg2 Ranges: Intake: 20:34 IV: 1000ml; Total: 1000ml. mg2 20:46 IV: 800ml; Total: 1800ml. mg2 Outcome: 20:29 Discharge ordered by . cr 20:47 Discharged to home ambulatory, with family. mg2 20:47 Condition: stable 20:47 Discharge instructions given to patient, family, Instructed on discharge instructions, follow up and referral plans. medication usage, Demonstrated understanding of instructions, follow-up care, medications, Prescriptions given X 2. 20:48 Patient left the ED. mg2 Signatures: Dispatcher [employer] Edward Rodgers MD MD cha Martinez, Amelia as Baxter, Heather, RN RN Armand Ortiz RN RN mg2 Trent Caicedo RN RN rv Tran, Leah lt1 Armand Ortiz RN mg2 Corrections: (The following items were deleted from the chart) 18:07 18:05 Presenting complaint: Chest tightness, SOB, and palpitations x 2 hrs. Home SBP hb 150. Denies pain at this time hb
--- NOTE | 2019-05-18 20:30 | EDPHYS ---
Physician Documentation [facility] Name: Demetria Chamberlain Age: 29 yrs Sex: Female : 1990 Arrival Date: 05/18/2019 Time: 18:01 Bed 25 Private MD: ED Physician Edward Page HPI: 05/18 20:23 This 29 yrs old Female presents to ER via Ambulatory with complaints of High cr Blood Pressure, Irregular Pulse. 20:23 The patient has elevated blood pressure and discovered this at home. Onset: The cr symptoms/episode began/occurred 2 day(s) ago. Modifying factors: The symptoms are aggravated by activity, The symptoms are alleviated by remaining still. Associated signs and symptoms: The patient has no apparent associated signs or symptoms. Severity of symptoms: At its worst the blood pressure was mild, in the emergency department the blood pressure is improved, mildly. The patient has not experienced similar symptoms in the past. 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 - Social history:: Smoking status: Patient/guardian denies using tobacco. - Ebola Screening: : No symptoms or risks identified at this time. ROS: 20:23 Constitutional: Negative for fever, chills, and weight loss, Eyes: Negative for injury, cr pain, redness, and discharge, ENT: Negative for injury, pain, and discharge, Neck: Negative for injury, pain, and swelling, Cardiovascular: Negative for chest pain, palpitations, and edema, Respiratory: Negative for shortness of breath, cough, wheezing, and pleuritic chest pain, Abdomen/GI: Negative for abdominal pain, nausea, vomiting, diarrhea, and constipation, Back: Negative for injury and pain, : Negative for injury, bleeding, discharge, and swelling, MS/Extremity: Negative for injury and deformity, Skin: Negative for injury, rash, and discoloration, Neuro: Negative for headache, weakness, numbness, tingling, and seizure, Psych: Negative for depression, anxiety, suicide ideation, homicidal ideation, and hallucinations, Allergy/Immunology: Negative for hives, rash, and allergies, Endocrine: Negative for neck swelling, polydipsia, polyuria, polyphagia, and marked weight changes, Hematologic/Lymphatic: Negative for swollen nodes, abnormal bleeding, and unusual bruising. Exam: 20:23 Constitutional: This is a well developed, well nourished patient who is awake, alert, cr and in no acute distress. Head/Face: Normocephalic, atraumatic. Eyes: Pupils equal round and reactive to light, extra-ocular motions intact. Lids and lashes normal. Conjunctiva and sclera are non-icteric and not injected. Cornea within normal limits. Periorbital areas with no swelling, redness, or edema. ENT: Nares patent. No nasal discharge, no septal abnormalities noted. Tympanic membranes are normal and external auditory canals are clear. Oropharynx with no redness, swelling, or masses, exudates, or evidence of obstruction, uvula midline. Mucous membranes moist. Neck: Trachea midline, no thyromegaly or masses palpated, and no cervical lymphadenopathy. Supple, full range of motion without nuchal rigidity, or vertebral point tenderness. No Meningismus. Chest/axilla: Normal chest wall appearance and motion. Nontender with no deformity. No lesions are appreciated. Cardiovascular: Regular rate and rhythm with a normal S1 and S2. No gallops, murmurs, or rubs. Normal PMI, no JVD. No pulse deficits. Respiratory: Lungs have equal breath sounds bilaterally, clear to auscultation and percussion. No rales, rhonchi or wheezes noted. No increased work of breathing, no retractions or nasal flaring. Abdomen/GI: Soft, non-tender, with normal bowel sounds. No distension or tympany. No guarding or rebound. No evidence of tenderness throughout. Back: No spinal tenderness. No costovertebral tenderness. Full range of motion. Skin: Warm, dry with normal turgor. Normal color with no rashes, no lesions, and no evidence of cellulitis. MS/ Extremity: Pulses equal, no cyanosis. Neurovascular intact. Full, normal range of motion. Neuro: Awake and alert, GCS 15, oriented to person, place, time, and situation. Cranial nerves II-XII grossly intact. Motor strength 5/5 in all extremities. Sensory grossly intact. Cerebellar exam normal. Normal gait. Psych: Awake, alert, with orientation to person, place and time. Behavior, mood, and affect are within normal limits. Vital Signs: 18:06 BP 155 / 103; Pulse 94; Resp 16; Temp 98.4; Pulse Ox 100% on R/A; Weight 89.81 kg; hb Height 5 ft. 6 in. (167.64 cm); Pain 4/10; 18:24 BP 131 / 89; Pulse 94; Resp 18; Pulse Ox 99% on R/A; mg2 19:48 BP 122 / 76; Pulse 96; Resp 18; Pulse Ox 100% on R/A; mg2 20:46 BP 124 / 81; Pulse 92; Resp 18; Pulse Ox 98% on R/A; Pain 0/10; mg2 18:06 Body Mass Index 31.96 (89.81 kg, 167.64 cm) hb MDM: 18:24 Patient medically screened. [facility] 20:24 Data reviewed: vital signs, nurses notes, lab test result(s), EKG, radiologic studies. [facility] 05/18 18:27 Order name: Basic Metabolic Panel [facility] 05/18 18:27 Order name: CBC with Diff [facility] 05/18 18:27 Order name: LFT's [facility] 05/18 18:27 Order name: Magnesium [facility] 05/18 18:27 Order name: NT PRO-BNP [facility] 05/18 18:27 Order name: PT-INR; Complete Time: 20:07 [facility] 05/18 18:27 Order name: Troponin (emerg Dept Use Only); Complete Time: 20:07 [facility] 05/18 18:27 Order name: Lipase; Complete Time: 20:07 [facility] 05/18 18:27 Order name: Urine Culture [facility] 05/18 18:27 Order name: UDS; Complete Time: 20:07 [facility] 05/18 18:27 Order name: TSH; Complete Time: 20:07 [facility] 05/18 18:28 Order name: Basic Metabolic Panel; Complete Time: 20:07 [facility] 05/18 18:28 Order name: CBC with Automated Diff; Complete Time: 20:07 [facility] 05/18 18:28 Order name: Liver (Hepatic) Function; Complete Time: 20:07 [facility] 05/18 18:27 Order name: XRAY Chest (1 view); Complete Time: 20:07 [facility] 05/18 18:27 Order name: EKG; Complete Time: 18:29 [facility] 05/18 18:27 Order name: Cardiac monitoring; Complete Time: 18:51 [facility] 05/18 18:27 Order name: EKG - Nurse/Tech; Complete Time: 18:51 [facility] 05/18 18:27 Order name: IV Saline Lock; Complete Time: 18:52 [facility] 05/18 18:28 Order name: Magnesium; Complete Time: 20:07 [facility] 05/18 18:28 Order name: NT PRO-BNP; Complete Time: 20:07 [facility] 05/18 18:41 Order name: Glucose, Ancillary Testing; Complete Time: 20:07 [facility] 05/18 19:12 Order name: Urine Dipstick--Ancillary (enter results); Complete Time: 20:07 [facility] 05/18 19:12 Order name: Urine --Ancillary (enter results); Complete Time: 20:07 [facility] 05/18 20:02 Order name: Glucose, Ancillary Testing; Complete Time: 20:07 [facility] 05/18 18:27 Order name: Labs collected and sent; Complete Time: 18:52 [facility] 05/18 18:27 Order name: O2 Per Protocol; Complete Time: 18:52 [facility] 05/18 18:27 Order name: O2 Sat Monitoring; Complete Time: 18:52 [facility] 05/18 18:27 Order name: Urine Test (obtain specimen); Complete Time: 19:28 [facility] Administered Medications: 18:45 Drug: NS 0.9% 1000 ml Route: IV; Rate: 1 bolus; Site: left antecubital; rv 20:46 Follow up: Response: No adverse reaction; IV Status: Completed infusion; IV Intake: mg2 800ml 18:45 Drug: NS 0.9% 1000 ml Route: IV; Rate: 1 bolus; Site: left antecubital; rv 20:34 Follow up: Response: No adverse reaction; IV Status: Completed infusion; IV Intake: mg2 1000ml 18:45 Drug: Insulin Regular Human 10 units {Co-Signature: mg2 (Armand Ortiz RN).} Route: rv IVP; Site: left antecubital; 20:33 Follow up: Response: No adverse reaction; Blood sugar is lowered mg2 18:45 Drug: Insulin Regular Human 10 units {Co-Signature: mg2 (Armand Ortiz RN).} Route: rv Sub-Q; Site: left lower abdomen; 20:33 Follow up: Response: No adverse reaction; Blood sugar is lowered mg2 20:45 Not Given (Patient Refused): Lisinopril 5 mg PO once mg2 Point of Care Testing: Blood Glucose: 18:36 Blood Glucose: 439 mg/dL; lt1 19:58 Blood Glucose: 248 mg/dL; mg2 Ranges: Critical Glucose Levels:Adult <50 mg/dl or >400 mg/dl <40 mg/dl or >180 mg/dl Disposition: 05/18/19 20:29 Discharged to Home. Impression: Essential (primary) hypertension, Type 2 diabetes mellitus. - Condition is Stable. - Discharge Instructions: Type 2 Diabetes Mellitus, Diagnosis, Adult, Hypertension, Hypertension, [id number], Type 2 Diabetes Mellitus, Diagnosis, Adult, [id number]. - Prescriptions for Lisinopril 5 mg Oral Tablet - take 1 tablet by ORAL route once daily; 20 tablet. Metformin 500 mg Oral Tablet Sustained Release 24 hr - take 1 tablet by ORAL route every 12 hours with evening meal; 30 tablet. - Medication Reconciliation Form, Thank You Letter, Antibiotic Education, Prescription Opioid Use, Work release form form. - Follow up: Private Physician; When: 2 - 3 days; Reason: Recheck today's complaints, Continuance of care, Re-evaluation by your physician. Follow up: Alonso Cooper MD; When: 2 - 3 days; Reason: Recheck today's complaints, Continuance of care, Re-evaluation by your physician. - Problem is new. - Symptoms have improved. Signatures: Dispatcher [employer] Edward Schuler MD MD cha Baxter, Heather, RN RN Armand Ortiz RN RN mg2 Trent Caicedo RN RN rv Armand Ortiz RN mg2 Corrections: (The following items were deleted from the chart) 20:48 20:29 05/18/2019 20:29 Discharged to Home. Impression: Essential (primary) mg2 hypertension; Type 2 diabetes mellitus. Condition is Stable. Forms are Medication Reconciliation Form, Thank You Letter, Antibiotic Education, Prescription Opioid Use. Follow up: Private Physician; When: 2 - 3 days; Reason: Recheck today's complaints, Continuance of care, Re-evaluation by your physician. Follow up: A Cooper; When: 2 - 3 days; Reason: Recheck today's complaints, Continuance of care, Re-evaluation by your physician. Problem is new. Symptoms have improved. cr
[2019-05-18] MEDS ORDERED: LISINOPRIL 5 MG TAB ONE (20:52)
--- NOTE | 2019-05-19 15:39 | EKG ---
Test Date: 2019-05-18 Test Time: 18:17:06 Liquefaction Supervisor: JOSE FRANCISCO MEASUREMENT RESULTS: Intervals: Rate: 91 KS: 138 QRSD: 90 QT: 372 QTc: 457 [place]: P: 46 KS: 138 QRS: 27 T: 44 INTERPRETIVE STATEMENTS: Normal sinus rhythm Cannot rule out Anterior infarct, age undetermined Abnormal ECG Compared to ECG 08/24/2018 21:26:09 Sinus arrhythmia no longer present Myocardial infarct finding still present Electronically Signed On 05-19-19 15:35:38 CDT by Anselmo Petersen
== END 2019-05-18 20:48 | disposition home or self-care (01) ==
LOC: ER 18:00
DX: I10 Essential (primary) hypertension (principal); E11.9 Type 2 diabetes mellitus without complications; Z79.4 Long term (current) use of insulin; Z88.5 Allergy status to narcotic agent; Z88.0 Allergy status to penicillin; Z88.8 Allergy status to other drugs, medicaments and biological substances
CPT/HCPCS: 36415; 71045; 80048; 80076; 80307; 81003; 81025; 82962; 83690; 83735; 83880; 84443; 84484; 85025; 85610; 87086; 87088; 93005; 96361; 96372; 96374; 99285; J7030

== ENCOUNTER 2019-10-18 19:38 | Emergency (ER) | payer SELFPAY ==
--- OUTSIDE RECORDS SUMMARY | 2019-10-18 19:40 | XMS REPORT ---
:1990 [facility] Address [address] [place] [address] Care Team Providers Name Role Phone NIKO [...] NEGATIVE Ketones (test code=UKET) NEGATIVE NEGATIVE Specific [place] (test code=USPGR) 1.010 1.005-1.030 Blood (test code=UBLD) [...] (test code=UBACT) 2+ None Seen,Trace TEST, Serum [id number] 20:28:00 Test Item Value Reference Range Comments (Serum) (test code=PREGS) Negative Negative ACETONE, [id number] 20:27:00 Test Item Value Reference Range Comments Acetone Serum (test code=ACETO) Negative Acetone Titer (test code=ACETIT) n/a [id number] 20:22:00 Test Item Value Reference Range Comments [...] mL/min/1.73m\S\2 EGFR if Non- >60 Estimated Glomerular [place] (test mL/min/1.73m\S\2 Filtration Rate (eGFR) code=EGFRNA) Reference [...] of chronic kidney failure. CBC WITH AUTO [id number] 19:53:00 Test Item Value Reference Range Comments [...]
[2019-10-18] MEDS ORDERED: ONDANSETRON 4 MG/2 ML VIAL ONE (20:01)
[2019-10-18] MEDS ORDERED: NA CHLORIDE 0.9% 1,000 ML ONE (20:01)
[2019-10-18 20:35] LABS: Absolute Lymphocytes (CBC) 2.4 K/uL (0.7-4.9); Basophils % 1.2 % (0-1.3); Hematocrit 48.3 % (36.0-45.0); Lymphocytes % 17.6 % (15.3-44.8); MPV 11.2 fL (7.6-11.3); RBC Red Blood Cell Count 6.03 M/uL (3.86-4.86)
[2019-10-18 20:51] LABS: ALT/SGPT 52 U/L (12-78); AST/SGOT 26 U/L (15-37); Alkaline Phosphatase 92 U/L (45-117); BUN Blood Urea Nitrogen 14 mg/dL (7-18); Bicarbonate 27 mmol/L (21-32); Bilirubin Direct < 0.1 mg/dL (0-0.2); Bilirubin Total 0.3 mg/dL (0.2-1.0); Lipase 275 U/L (73-393); Potassium 3.7 mmol/L (3.5-5.1); Protein, Total 7.9 g/dL (6.4-8.2); Sodium Level 136 mmol/L (136-145)
[2019-10-18 20:53] LABS: Glucose Level 401 mg/dL (74-106)
[2019-10-18] MEDS ORDERED: INSULIN -REGULAR HUMAN 50 UNIT/0.5 ML ML ONE (21:12)
[2019-10-18 21:43] LABS: Urine Blood NEGATIVE (NEG); Urine Glucose 2+ (NEG); Urine Protein NEGATIVE (NEG); Urine Specific Gravity 1.015 (1.005-1.030); Urine pH 5.5 (5.0-7.0)
--- NOTE | 2019-10-18 22:15 | ER ---
Nurse's Notes [facility] Name: Demetria Chamberlain Age: 29 yrs Sex: Female : 1990 Arrival Date: 10/18/2019 Time: 19:40 Bed 16 Private MD: Diagnosis: Hyperglycemia, unspecified Presentation: 10/18 20:04 Presenting complaint: Patient states: N/V/D with blood sugar at home of 515. Transition ak1 of care: patient was not received from another setting of care. Onset of symptoms is unknown. Risk Assessment: Do you want to hurt yourself or someone else? Patient reports no desire to harm self or others. Initial Sepsis Screen: Does the patient meet any 2 criteria? No. Patient's initial sepsis screen is negative. Does the patient have a suspected source of infection? No. Patient's initial sepsis screen is negative. Care prior to arrival: None. 20:04 Method Of Arrival: Ambulatory ak1 20:04 Acuity: NIKUNJ 3 ak1 Triage Assessment: 20:05 General: Appears in no apparent distress. Behavior is crying. 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 - Social history:: Smoking status: Patient/guardian denies using tobacco. - Ebola Screening: : No symptoms or risks identified at this time. Screenin:06 Abuse screen: Denies threats or abuse. Denies injuries from another. Nutritional ak1 screening: No deficits noted. Tuberculosis screening: No symptoms or risk factors identified. Assessment: 20:00 General: Appears in no apparent distress. uncomfortable, Behavior is calm, cooperative, jb4 appropriate for age. Pain: Complains of pain in abdomen Pain does not radiate. Pain currently is 5 out of 10 on a pain scale. Neuro: Level of Consciousness is awake, alert, obeys commands, Oriented to person, place, time, situation. Cardiovascular: Patient's skin is warm and dry. Respiratory: Airway is patent Respiratory effort is even, unlabored, Respiratory pattern is regular, symmetrical. GI: Abdomen is flat, non-distended. : EENT: No signs and/or symptoms were reported regarding the EENT system. Derm: Skin is intact, Skin is pink, warm \T\ dry. Musculoskeletal: Circulation, motion, and sensation intact. Range of motion: intact in all extremities. 20:10 Reassessment: BGL 422, provider notified. jb4 21:00 Reassessment: Patient appears in no apparent distress at this time. Patient and/or jb4 family updated on plan of care and expected duration. Pain level reassessed. Patient is alert, oriented x 3, equal unlabored respirations, skin warm/dry/pink. 21:58 Reassessment: Patient appears in no apparent distress at this time. Patient and/or jb4 family updated on plan of care and expected duration. Pain level reassessed. Patient is alert, oriented x 3, equal unlabored respirations, skin warm/dry/pink. Patient states feeling better. 22:00 Reassessment: BGL 211, provider notified. jb4 22:51 Reassessment: Patient appears in no apparent distress at this time. Patient and/or jb4 family updated on plan of care and expected duration. Pain level reassessed. Patient is alert, oriented x 3, equal unlabored respirations, skin warm/dry/pink. PT and significant other verbalized understanding of d/c and follow up instructions. Vital Signs: 20:03 BP 130 / 81; Pulse 95; Resp 16; Temp 97.6; Pulse Ox 98% on R/A; Weight 86.18 kg (R); ak1 Height 5 ft. 6 in. (167.64 cm) (R); Pain 0/10; 21:00 BP 113 / 76; Pulse 90; Resp 16; Pulse Ox 99% on R/A; jb4 22:00 BP 108 / 76; Pulse 101; Resp 16; Pulse Ox 98% on R/A; jb4 20:03 Body Mass Index 30.67 (86.18 kg, 167.64 cm) ak1 ED Course: 19:40 Patient arrived in ED. ag3 19:53 Colton Kearney [facility]. jr8 19:53 Caleb Elizabeth MD is Attending Physician. jr8 19:54 Corey Piedra, JALEN is Primary Nurse. jb4 20:04 Triage completed. ak1 20:05 Arm band placed on Patient placed in an exam room, on a stretcher, on pulse oximetry, ak1 Patient notified of wait time. 20:06 Patient has correct armband on for positive identification. ak1 20:10 Initial lab(s) drawn, by me, sent to lab. Inserted saline lock: 18 gauge in left wrist, jb4 using aseptic technique. Blood collected. 20:53 Notified Nurse Practitioner and/or Physician It Support Analyst of a critical lab result(s), 401 ak1 glucose. 22:50 No provider procedures requiring assistance completed. IV discontinued, intact, jb4 bleeding controlled, No redness/swelling at site. Pressure dressing applied. Administered Medications: 20:24 Drug: Zofran 4 mg Route: IVP; Site: left wrist; jb4 20:50 Follow up: Response: No adverse reaction; Nausea is decreased jb4 20:26 Drug: NS 0.9% 1000 ml Route: IV; Rate: 1 bolus; Site: left wrist; jb4 21:30 Follow up: Response: No adverse reaction; IV Status: Completed infusion; IV Intake: jb4 1000ml 21:22 Drug: Insulin Regular Human 10 units {Co-Signature: rr5 (Marco A Mclaughlin RN).} Route: jb4 IVP; Site: left wrist; 22:00 Follow up: Response: No adverse reaction; Blood sugar is lowered jb4 21:22 Drug: Insulin Regular Human 10 units {Co-Signature: rr5 (Marco A Mclaughlin RN).} Route: jb4 Sub-Q; Site: left upper arm; 22:00 Follow up: Response: Blood sugar is lowered jb4 Intake: 21:30 IV: 1000ml; Total: 1000ml. jb4 Outcome: 22:15 Discharge ordered by . jr8 22:50 Discharged to home ambulatory, with significant other. jb4 22:50 Condition: stable 22:50 Discharge instructions given to patient, significant other, Instructed on discharge instructions, follow up and referral plans. medication usage, Demonstrated understanding of instructions, follow-up care, medications, Prescriptions given X 1. 22:56 Patient left the ED. jb4 Signatures: Colton Kearney PA PA jr8 Irene Rebolledo RN RN ak1 Corey Piedra RN RN jb4 Lili Ramirez ag3 Marco A Mclaughlin RN rr5
--- NOTE | 2019-10-18 22:16 | EDPHYS ---
Physician Documentation [facility] Name: Demetria Chamberlain Age: 29 yrs Sex: Female : 1990 Arrival Date: 10/18/2019 Time: 19:40 Bed 16 Private MD: ED Physician Caleb Elizabeth HPI: 10/18 20:51 This 29 yrs old Female presents to ER via Ambulatory with complaints of High jr8 Blood Sugar, Vomiting. 20:51 Patient stated that her metformin is not controlling her sugar. Suppose to be on jr8 insulin but has never filled it because her Metformin usually works. Denies recent change in medicine, new medicine, illness, or dietary changes. Stated that she is starting to feel weak, dizzy, nauseated with vomiting, and fatigue . Onset: The symptoms/episode began/occurred gradually, 2 week(s) ago. Severity of symptoms: At their worst the symptoms were moderate in the emergency department the symptoms are unchanged. The patient has experienced a previous episode. The patient has not recently seen a physician. 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 - Social history:: Smoking status: Patient/guardian denies using tobacco. - Ebola Screening: : No symptoms or risks identified at this time. ROS: 20:51 Eyes: Negative for injury, pain, redness, and discharge, ENT: Negative for injury, jr8 pain, and discharge, Neck: Negative for injury, pain, and swelling, Cardiovascular: Negative for chest pain, palpitations, and edema, Respiratory: Negative for shortness of breath, cough, wheezing, and pleuritic chest pain, Back: Negative for injury and pain, MS/Extremity: Negative for injury and deformity, Skin: Negative for injury, rash, and discoloration, Neuro: Negative for headache, weakness, numbness, tingling, and seizure. 20:51 Constitutional: Positive for fatigue, malaise. 20:51 Constitutional: Negative for fever. 20:51 Abdomen/GI: Positive for nausea and vomiting, Negative for abdominal pain, diarrhea, constipation, abdominal cramps, abdominal distension. Exam: 20:53 Eyes: Pupils equal round and reactive to light, extra-ocular motions intact. Lids and jr8 lashes normal. Conjunctiva and sclera are non-icteric and not injected. Cornea within normal limits. Periorbital areas with no swelling, redness, or edema. ENT: Nares patent. No nasal discharge, no septal abnormalities noted. Tympanic membranes are normal and external auditory canals are clear. Oropharynx with no redness, swelling, or masses, exudates, or evidence of obstruction, uvula midline. Mucous membranes moist. Neck: Trachea midline, no thyromegaly or masses palpated, and no cervical lymphadenopathy. Supple, full range of motion without nuchal rigidity, or vertebral point tenderness. No Meningismus. Cardiovascular: Regular rate and rhythm with a normal S1 and S2. No gallops, murmurs, or rubs. Normal PMI, no JVD. No pulse deficits. Respiratory: Lungs have equal breath sounds bilaterally, clear to auscultation and percussion. No rales, rhonchi or wheezes noted. No increased work of breathing, no retractions or nasal flaring. Abdomen/GI: Soft, non-tender, with normal bowel sounds. No distension or tympany. No guarding or rebound. No evidence of tenderness throughout. Back: No spinal tenderness. No costovertebral tenderness. Full range of motion. Skin: Warm, dry with normal turgor. Normal color with no rashes, no lesions, and no evidence of cellulitis. MS/ Extremity: Pulses equal, no cyanosis. Neurovascular intact. Full, normal range of motion. Neuro: Awake and alert, GCS 15, oriented to person, place, time, and situation. Cranial nerves II-XII grossly intact. Motor strength 5/5 in all extremities. Sensory grossly intact. Cerebellar exam normal. Normal gait. Vital Signs: 20:03 BP 130 / 81; Pulse 95; Resp 16; Temp 97.6; Pulse Ox 98% on R/A; Weight 86.18 kg (R); ak1 Height 5 ft. 6 in. (167.64 cm) (R); Pain 0/10; 21:00 BP 113 / 76; Pulse 90; Resp 16; Pulse Ox 99% on R/A; jb4 22:00 BP 108 / 76; Pulse 101; Resp 16; Pulse Ox 98% on R/A; jb4 20:03 Body Mass Index 30.67 (86.18 kg, 167.64 cm) ak1 MDM: 19:55 Patient medically screened. jr8 22:14 Data reviewed: vital signs, nurses notes, lab test result(s), and as a result, I will jr8 discharge patient. Data interpreted: Pulse oximetry: on room air is 98 %. Interpretation: normal. Counseling: I had a detailed discussion with the patient and/or guardian regarding: the historical points, exam findings, and any diagnostic results supporting the discharge/admit diagnosis, lab results, the need for outpatient follow up, a family practitioner, to return to the emergency department if symptoms worsen or persist or if there are any questions or concerns that arise at home. Response to treatment: the patient's symptoms have markedly improved after treatment, patient is well hydrated. 10/18 19:47 Order name: Basic Metabolic Panel tw4 10/18 19:47 Order name: CBC with Diff; Complete Time: 20:43 tw4 10/18 19:47 Order name: Creatinine for Radiology; Complete Time: 20:49 tw4 10/18 19:47 Order name: Hepatic Function; Complete Time: 20:53 tw4 10/18 19:47 Order name: Lipase; Complete Time: 20:53 tw4 10/18 19:47 Order name: Ketone, Serum; Complete Time: 20:53 tw4 10/18 19:47 Order name: IV Saline Lock; Complete Time: 20:41 tw4 10/18 19:48 Order name: Basic Metabolic Panel; Complete Time: 20:53 EDMS 10/18 20:26 Order name: Urine Dipstick--Ancillary (enter results); Complete Time: 21:56 ar5 10/18 20:26 Order name: Urine --Ancillary (enter results); Complete Time: 21:56 me5 10/18 19:47 Order name: Labs collected and sent; Complete Time: 20:41 tw4 10/18 19:55 Order name: Urine Test (obtain specimen); Complete Time: 20:24 8 10/18 19:55 Order name: Urine Dipstick-Ancillary (obtain specimen); Complete Time: 20:24 8 10/18 19:56 Order name: Glucose Level; Complete Time: 20: Administered Medications: 20:24 Drug: Zofran 4 mg Route: IVP; Site: left wrist; jb4 20:50 Follow up: Response: No adverse reaction; Nausea is decreased jb4 20:26 Drug: NS 0.9% 1000 ml Route: IV; Rate: 1 bolus; Site: left wrist; jb4 21:30 Follow up: Response: No adverse reaction; IV Status: Completed infusion; IV Intake: jb4 1000ml 21:22 Drug: Insulin Regular Human 10 units {Co-Signature: [email or web address] (Marco A Mclaughlin RN).} Route: jb4 IVP; Site: left wrist; 22:00 Follow up: Response: No adverse reaction; Blood sugar is lowered jb4 21:22 Drug: Insulin Regular Human 10 units {Co-Signature: [email or web address] (Marco A Mclaughlin RN).} Route: jb4 Sub-Q; Site: left upper arm; 22:00 Follow up: Response: Blood sugar is lowered jb4 Disposition: 10/19 06:21 Co-signature as Attending Physician, Caleb Elizabeth MD I agree with the assessment and 4 plan of care. Disposition: 10/18/19 22:15 Discharged to Home. Impression: Hyperglycemia, unspecified. - Condition is Stable. - Discharge Instructions: Hyperglycemia, Blood Glucose Monitoring, Adult. - Prescriptions for Metformin 1,000 mg Oral Tablet - take 1 tablet by ORAL route every 12 hours with morning and evening meals; 60 tablet. - Medication Reconciliation Form, Thank You Letter, Antibiotic Education, Prescription Opioid Use form. - Follow up: Private Physician; When: 2 - 3 days; Reason: Recheck today's complaints, Continuance of care, Re-evaluation by your physician. - Problem is new. - Symptoms have improved. Signatures: Dispatcher [employer] Colton Green PA PA jr8 Irene Rebolledo, RN RN ak1 Corey Piedra RN RN [email or web address] Caleb Elizabeth MD MD tw4 Marco A Mclaughlin RN [email or web address] Corrections: (The following items were deleted from the chart) 10/18 22:56 22:15 10/18/2019 22:15 Discharged to Home. Impression: Hyperglycemia, unspecified. jb4 Condition is Stable. Forms are Medication Reconciliation Form, Thank You Letter, Antibiotic Education, Prescription Opioid Use. Follow up: Private Physician; When: 2 - 3 days; Reason: Recheck today's complaints, Continuance of care, Re-evaluation by your physician. Problem is new. Symptoms have improved. jr8
[2019-10-19 02:44] VITALS: TEMP 97.6
[2019-10-19 02:47] VITALS: BP 108/76; O2SAT 98
== END 2019-10-18 22:56 | disposition home or self-care (01) ==
LOC: ER 19:38
DX: E11.65 Type 2 diabetes mellitus with hyperglycemia (principal); Z88.6 Allergy status to analgesic agent; Z91.09 Other allergy status, other than to drugs and biological substances; Z88.0 Allergy status to penicillin; Z88.8 Allergy status to other drugs, medicaments and biological substances
CPT/HCPCS: 36415; 80048; 80076; 81003; 81025; 82010; 82947; 83690; 85025; 96361; 96372; 96374; 96375; 99284; J2405; J7030

== ENCOUNTER 2021-11-08 15:15 | Emergency (ER) | payer SELFPAY ==
--- OUTSIDE RECORDS SUMMARY | 2021-11-08 15:22 | XMS REPORT | Continuity of Care Document ---
:1990 Author Organization [facility] t Address [address] [place] [place] [address] Care Team Providers Name Role Phone JALEN HARRYdirector of labor relations Physician THIEN Attending Clinician Unavailable Thien RICHTER Attending Clinician Marcie GRAHAM Attending Clinician Unavailable Jerilyn RICHTER T Attending Clinician Juan A GALLEGO Attending Clinician Seb RICHTER S Attending Clinician Reji GRIGSBY Attending Clinician Unavailable Chey GALLEGO, B Attending Clinician Delbert BLANKENSHIP, S Attending Clinician Reji MANDUJANO Attending Clinician Unavailable Ashley RAO, M Attending Clinician Unavailable Doctor Unassigned, Name Attending Clinician Unavailable Romain SHANI Attending Clinician Unavailable Marcie GRAHAM Admitting Clinician Unavailable Reji GRIGSBY Admitting Clinician Unavailable Romain SAHNI Admitting Clinician Unavailable Advance Directives Directive Decision Effective Date Termination Date Comments Sour ce Yes N/A [facility] Condition Condition Condition Status Onset Resolution Last Treating Co mments Source Name Details Category Date Date Treatment Clinician Date Problem Condition [facility] Allergies, Adverse Reactions, Alerts Allergy Allergy Status Severity Reaction(s) Onset Inactive Treating Comm ents Source Name Type Date Date Clinician Codeine Propensi Active Rash 2020-0 Univers ty to 5-16 ity of adverse 00:00: [place] reaction 00 Medical s Branch Iodine Propensi Active Other - See 2020-0 "causes Un chrissy ty to comments 5-16 my entire ity o f adverse 00:00: body to [place] reaction 00 start Medical s shaking." Branch Morphine Propensi Active Rash 2020-0 Univer s ty to 5-16 ity of adverse 00:00: [place] reaction 00 Medical s Branch Penicill Propensi Active Anaphylaxis 2020-0 U nivers in ty to 5-16 ity of adverse 00:00: [place] reaction 00 Medical s Branch PENICILL DRUG Active Anaphylaxis 2020-0 Uni vers IN INGREDI 5-16 ity of 00:00: [place] 00 Medical Branch MORPHINE DRUG Active Rash 2020-0 Univers INGREDI 5-16 ity of 00:00: [place] 00 Medical Branch CODEINE DRUG Active Rash 2020-0 Univers INGREDI 5-16 ity of 00:00: [place] 00 Medical Branch IODINE DRUG Active Rash 2020-0 Univers INGREDI 5-16 ity of 00:00: [place] 00 Medical Branch Penicill Propensi Active Anaphylaxis 2020-0 U nivers in ty to 5-16 ity of adverse 00:00: [place] reaction 00 Medical s Branch Codeine Allergy Active Unknown 2020-0 [facility] to 3-07 S substanc 00:00: Health e 00 Penicill Allergy Active Unknown 2020-0 WILL U in to 3-07 S substanc 00:00: Health e 00 Iodine Allergy Active Unknown 2020-0 [facility] to 3-07 S substanc 00:00: Health e 00 Morphine Allergy Active Unknown 2020-0 WILL U to 3-07 S substanc 00:00: Health e 00 Social History Social Habit Start Date Stop Date Quantity Comments Source Exposure to Not sure [facility] SARS-CoV-2 (event) Medica l Branch Sex Assigned At [birth year] Female [facility] 00:00:00 00:00:00 Smoking Status Start Date Stop Date Source Unknown if ever smoked [facility] y [facility] Medical Branch Medications Ordered Filled Start Stop Current Ordering Indication Dosage Frequency Signature Comments Components Source Medication Medication Date Date Medication? Clinician (SIG) Name Name NaCl 0.9% 2021-0 2021- No 1000mL at 999 Uni vers (NS) bolus 1-06 01-06 mL/hr, ity of infusion 10:45: 10:22 1,000 mL, Alex as 1,000 mL 00 :00 IV Medical Infusion, Branch ONCE, 1 dose, On Yenny 11/06/21 at 0445, STAT acetaminoph 2021- No 1000mg 1,000 mg, Univers en 11-06 Oral, ity of (TYLENOL) 10:45: 09:33 ONCE, 1 [place] tablet 00 :00 dose, On Medical 1,000 mg Y[place] 11/06/21 Branc h at 0445, GEO ondansetron 2021- No 4mg 4 mg, Slow Univers (ZOFRAN 11-06 IV Push, ity of (PF)) 09:15: 08:09 ONCE, 1 [place] injection 4 00 :00 dose, On Medi luis mg Yenny 11/06/21 Branch at 0315, GEO ketorolac 0 2021- No 30mg 30 mg, Unive rs (TORADOL) 11-06 Slow IV ity of injection 09:15: 08:09 Push, [place] 30 mg 00 :00 ONCE, 1 Medical dose, On Branch Yenny 11/06/21 at 0315, Routine
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 ibuprofen 2021-0 Yes [id number] 600mg Take 1 Univers 600 mg 1-06 tablet by ity of tablet 00:00: mouth [place] 00 every 6 Medical (six) Branch hours as needed for Pain (scale 4-6). benzonatate 2021-0 Yes [id number] 100mg Take 1 Univers 100 mg 1-06 capsule by ity of capsule 00:00: mouth 3 [place] 00 (three) Medical times Branch daily as needed for Cough. acetaminoph 2020-11- No 1000mg 1,000 mg, Univers en 10-31 Oral, ity of (TYLENOL) 16:15: 15:16 ONCE, 1 [place] tablet 00 :00 dose, On Medical 1,000 mg Fri Branch 10/31/21 at 1015, GEO clindamycin 2020-11- No 600mg 600 mg, IV Univers in 5 % 10-31 Piggyback, ity of dextrose 16:00: 16:02 ONCE, 1 [place] (CLEOCIN) 00 :00 dose, On Medica l 600 mg/50 Fri Branch mL IV 10/31/21 piggyback at 1000, RTU 600 mg Administer over 30 Minutes, 50 mL
R tom for Anti-Infec tive: Documented Infection< br>Documen elias Infection Site: HEENT<br&g t;Duration of Therapy: 7 days
Re stricted use approved by: ED PROVIDER<b r>Indicati on for Clindamyci n use: dental infection dexamethaso 2020-11- No 10mg 10 mg, IV Univers ne 10-31 Push, ity of (DECADRON 16:00: 15:33 ONCE, 1 [place] PHOSPHATE[place] 00 :00 dose, On Medic al injection Fri Branch 10 mg 10/31/21 at 1000, STAT NaCl 0.9% 2020-11- No 1000mL at 999 Uni vers (NS) bolus 10-31 mL/hr, ity of infusion 16:00: 17:12 1,000 mL, Alex as 1,000 mL 00 :00 IV Medical Infusion, Branch ONCE, 1 dose, On 10/31/21 at 1000, STAT proMETHazin 2020-11 Yes [id number] 25mg Take 1 Univers e 25 mg 2-31 tablet by ity of tablet 00:00: mouth [place] 00 every 6 Medical (six) Branch hours as needed for Nausea and Vomiting (N/V). traMADoL 2020-11 Yes [id number] 50mg Take 1 Univers (ULTRAM) 50 2-31 tablet by ity of mg tablet 00:00: mouth [place] 00 every 6 Medical (six) Branch hours as needed for Pain (scale 7-10). Indication s: acute pain proMETHazin 2020-11 Yes [id number] 25mg Take 1 Univers e 25 mg 2-31 tablet by ity of tablet 00:00: mouth [place] 00 every 6 Medical (six) Branch hours as needed for Nausea and Vomiting (N/V). traMADoL 2020-11 Yes [id number] 50mg Take 1 Univers (ULTRAM) 50 2-31 tablet by ity of mg tablet 00:00: mouth [place] 00 every 6 Medical (six) Branch hours as needed for Pain (scale 7-10). Indication s: acute pain erythromyci 2020-11- Yes [id number] 500mg Take 1 Univers n base 500 2- 01-08 tablet by ity of mg tablet 00:00: 05:59 mouth [place] 00 :00 every 6 Medical (six) Branch hours for 7 days. erythromyci 2020-11- Yes [id number] 500mg Take 1 Univers n base 500 2-01 12-08 tablet by ity of mg tablet 00:00: 05:59 mouth [place] 00 :00 every 6 Medical (six) Branch hours for 7 days. insulin 2020- No 5U 5 Units, Unive rs regular 05-27 Slow IV ity of human 00:45: 23:57 Push, [place] (HUMULIN R) 00 :00 ONCE, 1 Medic al injection 5 dose, [facility] Units 05/26/21 at 1945, GEO diphenhydrA 2020- No 25mg 25 mg, Uni vers MINE 05-27 Intravenou ity of (BENADRYL) 00:00: 23:01 s, ONCE, 1 [place] injection 00 :00 dose, Mon Medic al 25 mg 05/26/21 at Branch 1900, GEO metoclopram 2020- No 10mg 10 mg, Uni vers jessica HCl 05-27 Slow IV ity of (REGLAN) 00:00: 23:01 Push, [place] injection 00 :00 ONCE, 1 Medical 10 mg dose, [facility] Branch 05/26/21 at 1900, GEO ketorolac 2020- No 15mg 15 mg, Unive rs (TORADOL) 05-27 Slow IV ity of injection 00:00: 23:01 Push, [place] 15 mg 00 :00 ONCE, 1 Medical dose, 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 05/26/21 at 1900, STAT butalbital- 2020- No 1{tbl} 1 tablet, [facility] acetaminoph 05-26 Oral, ity of en-caff 23:00: 23:07 ONCE, 1 [place] (ESGIC) 00 :00 dose, [facility] Medical 50-325-40 05/26/21 at Bran ch mg tablet 1 1800, tablet Routine metFORMIN Yes [id number] 500mg Take 1 U nivers 500 mg -26 tablet by ity of tablet 00:00: mouth 2 [place] 00 (two) Medical times Branch daily. metFORMIN Yes [id number] 500mg Take 1 U nivers 500 mg 7-26 tablet by ity of tablet 00:00: mouth 2 [place] (two) Medical times Branch daily. metFORMIN Yes [id number] 500mg Take 1 U nivers 500 mg 7-26 tablet by ity of tablet 00:00: mouth 2 [place] 00 (two) Medical times Branch daily. insulin 2019-11- No 5U 5 Units, Unive rs regular 12-13 Subcutaneo ity o f human 12:00: 11:00 , ONCE, [place] (HUMULIN R) 00 :00 1 dose, Medic al injection 5 [facility] Branch Units 10/12/20 at 0600, Routine ketorolac 2019-11- No 30mg 30 mg, Unive rs (TORADOL) 12-13 Slow IV ity of injection 10:45: 10:42 Push, [place] 30 mg 00 :00 ONCE, 1 Medical dose, [facility] Branch 10/12/20 at 0445, GEO
Fa culty member approving Restricted medication : ELMER GRIGSBY iohexol 2019-11- No 120mL 120 mL, Unive rs (OMNIPAQUE 2-12 12-12 Intravenou it y of 350 10:45: 10:32 s, ONCE, 1 [place] BULK-100 00 :00 dose, Sat Medica l mL) 10/12/20 Branch injection at 0445, 120 mL Routine traMADoL 2019-11 Yes [id number] 50mg Take 1 Univers (ULTRAM) 50 2-12 tablet by ity of mg tablet 00:00: mouth [place] 00 every 6 Medical (six) Branch hours as needed for Pain (scale 7-10). Indication s: acute pain methocarbam 2019-11 Yes [id number] 500mg Take 1 Univers oL 2-12 tablet by ity of (ROBAXIN) 00:00: mouth [place] 500 mg 00 every 6 Medical tablet (six) Branch hours as needed (MUSCLE SPASM). traMADoL 2019-11 Yes [id number] 50mg Take 1 Univers (ULTRAM) 50 2-12 tablet by ity of mg tablet 00:00: mouth [place] 00 every 6 Medical (six) Branch hours as needed for Pain (scale 7-10). Indication s: acute pain methocarbam 2019-11 Yes [id number] 500mg Take 1 Univers oL 2-12 tablet by ity of (ROBAXIN) 00:00: mouth [place] 500 mg 00 every 6 Medical tablet (six) Branch hours as needed (MUSCLE SPASM). methocarbam 2019-11 Yes [id number] 500mg Take 1 Univers oL 2-12 tablet by ity of (ROBAXIN) 00:00: mouth [place] 500 mg 00 every 6 Medical tablet (six) Branch hours as needed (MUSCLE SPASM). methocarbam 2019-11 Yes [id number] 500mg Take 1 Univers oL 2-12 tablet by ity of (ROBAXIN) 00:00: mouth [place] 500 mg 00 every 6 Medical tablet (six) Branch hours as needed (MUSCLE SPASM). traMADoL 2019-11- No [id number] 50mg Take 1 Univer s (ULTRAM) 50 2-12 12-31 tablet by it y of mg tablet 00:00: 00:00 mouth [place] 00 :00 every 6 Medical (six) Branch hours as needed for Pain (scale 7-10). Indication s: acute pain methocarbam 2019-11- No [id number] 500mg Take 1 Univers oL 2-12 12-12 tablet by ity of (ROBAXIN) 00:00: 00:00 mouth [place] 500 mg 00 :00 every 6 Medical tablet (six) Branch hours as needed (MUSCLE SPASM). maalox:diph 2019-11 2020- No 15mL 15 mL, Uni vers enhydrAMINE 0-16 10-16 Oral, ity of :lidocaine 18:45: 17:44 ONCE, 1 [place] as 2 % viscous 00 :00 dose, Fri Med ical 1:1:1 08/16/20 Branch ([facility] Routine oral suspension 15 mL dexamethaso 2019-11 2020- No 10mg 10 mg, Uni vers ne 0-16 10-16 Intramuscu ity of (DECADRON 18:45: 17:34 [place], ONCE, [place] PHOSPHATE) 00 :00 1 dose, Medica l injection Fri Branch 10 mg 08/16/20 at 1345, STAT albuterol 2019-11 Yes [id number] 2{puff} Inhale 2 Univers 90 0-16 Puffs ity of mcg/actuati 00:00: every 4 Alex as on inhaler 00 (four) Medical hours as Branch needed for Wheezing or Shortness of Breath. predniSONE 2019-11 Yes [id number] 60mg Take 3 U nivers 20 mg 0-16 tablets by ity of tablet 00:00: mouth [place] 00 every Medical morning. Branch benzonatate 2019-11 Yes [id number] 100mg Take 1 Univers 100 mg 0-16 capsule by ity of capsule 00:00: mouth 3 [place] 00 (three) Medical times Branch daily as needed for Cough. dextrometho 2019- Yes [id number] 10mL Take 10 mL Univers rphan-guaif 0-16 by mouth ity of enesin 00:00: every 6 [place] 10-100 mg/5 00 (six) Medical mL solution hours as Bran ch needed for Cough. albuterol 2019-11 Yes [id number] 2{puff} Inhale 2 Univers 90 0-16 Puffs ity of mcg/actuati 00:00: every 4 Alex as on inhaler 00 (four) Medical hours as Branch needed for Wheezing or Shortness of Breath. predniSONE 2019- Yes [id number] 60mg Take 3 U nivers 20 mg 0-16 tablets by ity of tablet 00:00: mouth [place] 00 every Medical morning. Branch benzonatate 2020- Yes [id number] 100mg Take 1 Univers 100 mg 0-16 capsule by ity of capsule 00:00: mouth 3 (three) Medical times Branch daily as needed for Cough. dextrometho 2020-1 Yes [id number] 10mL Take 10 mL Univers rphan-guaif 0-16 by mouth ity of enesin 00:00: every 6 [place] 10-100 mg/5 00 (six) Medical mL solution hours as Bran ch needed for Cough. albuterol 2019- Yes [id number] 2{puff} Inhale 2 Univers 90 0-16 Puffs ity of mcg/actuati 00:00: every 4 [place] as on inhaler 00 (four) Medical hours as Branch needed for Wheezing or Shortness of Breath. predniSONE 2019- Yes [id number] 60mg Take 3 U nivers 20 mg 0-16 tablets by ity of tablet 00:00: mouth [place] 00 every Medical morning. Branch benzonatate 2019- Yes [id number] 100mg Take 1 Univers 100 mg 0-16 capsule by ity of capsule 00:00: mouth 3 (three) Medical times Branch daily as needed for Cough. dextrometho 2019- Yes [id number] 10mL Take 10 mL Univers rphan-guaif 0-16 by mouth ity of enesin 00:00: every 6 [place] 10-100 mg/5 00 (six) Medical mL solution hours as Bran ch needed for Cough. albuterol 2019- Yes [id number] 2{puff} Inhale 2 Univers 90 0-16 Puffs ity of mcg/actuati 00:00: every 4 [place] as on inhaler 00 (four) Medical hours as Branch needed for Wheezing or Shortness of Breath. predniSONE 2019- Yes [id number] 60mg Take 3 U nivers 20 mg 0-16 tablets by ity of tablet 00:00: mouth [place] 00 every Medical morning. Branch benzonatate 2019- Yes [id number] 100mg Take 1 Univers 100 mg 0-16 capsule by ity of capsule 00:00: mouth 3 [place] 00 (three) Medical times Branch daily as needed for Cough. dextrometho 2019- Yes [id number] 10mL Take 10 mL Univers rphan-guaif 0-16 by mouth ity of enesin 00:00: every 6 [place] 10-100 mg/5 00 (six) Medical mL solution hours as Bran ch needed for Cough. albuterol 2019-11 Yes [id number] 2{puff} Inhale 2 Univers 90 0-16 Puffs ity of mcg/actuati 00:00: every 4 Alex as on inhaler 00 (four) Medical hours as Branch needed for Wheezing or Shortness of Breath. predniSONE 2019-11 Yes [id number] 60mg Take 3 U nivers 20 mg 0-16 tablets by ity of tablet 00:00: mouth [place] 00 every Medical morning. Branch benzonatate 2019-11 Yes [id number] 100mg Take 1 Univers 100 mg 0-16 capsule by ity of capsule 00:00: mouth 3 [place] 00 (three) Medical times Branch daily as needed for Cough. dextrometho 2019-11 Yes [id number] 10mL Take 10 mL Univers rphan-guaif 0-16 by mouth ity of enesin 00:00: every 6 [place] 10-100 mg/5 00 (six) Medical mL solution hours as Bran ch needed for Cough. tobramycin 2019-11- No [id number] 2[drp] Place 2 Univers 0.3 % 0-13 10-21 9104 Drops in ity of ophthalmic 00:00: 04:59 [place] eyes [place] drops 00 :00 4 (four) Medical times Branch daily for 7 days. Continue until you follow up with eye doctor. tobramycin 2019-11- No [id number] 2[drp] Place 2 Univers 0.3 % 0-13 10-21 9104 Drops in ity of ophthalmic 00:00: 04:59 [place] eyes [place] drops 00 :00 4 (four) Medical times Branch daily for 7 days. Continue until you follow up with eye doctor. tobramycin 2019-11- No [id number] 2[drp] Place 2 Univers 0.3 % 0-13 10-21 9104 Drops in ity of ophthalmic 00:00: 04:59 [place] eyes [place] drops 00 :00 4 (four) Medical times Branch daily for 7 days. Continue until you follow up with eye doctor. aspirin 2019-11 2020- No 325mg 325 mg, Unive rs tablet 325 0-02 10-02 Oral, ity of mg 03:45: 02:51 ONCE, 1 [place] 00 :00 dose, Yenny Medical 08/01/20 at Branch 2245, STAT insulin 2019- 2020- No 10U 10 Units, Univ ers regular 0-02 10-02 Slow IV ity of human 03:45: 02:51 Push, [place] (HUMULIN R) 00 :00 ONCE, 1 Medic al injection dose, Yenny Branc h 10 Units 08/01/20 at 2245, STAT NaCl 0.9% 2019-11 2020- No 1000mL at 999 Uni vers (NS) bolus 0-02 10-02 mL/hr, ity of infusion 03:45: 04:04 1,000 mL, Alex as 1,000 mL 00 :00 IV Medical Infusion, [place] ONCE, 1 dose, Yenny 08/01/20 at 2245, STAT NaCl 0.9% 2020-0 Yes 1000mL at 999 Univ ers (NS) IV 5-17 mL/hr, ity of infusion 07:30: Intravenou [place] as 1,000 mL 00 s, Medical CONTINUOUS [place] , Starting [place] 03/17/20 at 0230, Until Discontinu ed, Routine insulin 2020-0 2020- No 5U 5 Units, Unive rs regular 03-17- Subcutaneo ity o f human 07:30: 07:30 , ONCE, [place] (HUMULIN R) 00 :00 1 dose, Medic al injection 5 [facility] Units 03/17/20 at 0230, Routine diphenhydrA 2020-0 2020- No 25mg 25 mg, Uni vers MINE 03-17 Slow IV ity of (BENADRYL) 07:30: 06:33 Push, [place] injection 00 :00 ONCE, 1 Medical 25 mg dose, [facility] 03/17/20 at 0230, STAT metoclopram 2020-0 2020- No 10mg 10 mg, Uni vers jessica HCl 03-17 Slow IV ity of (REGLAN) 07:30: 06:33 Push, [place] injection 00 :00 ONCE, 1 Medical 10 mg dose, [facility] 03/17/20 at 0230, GEO NaCl 0.9% 2020-0 2020- No 500mL at 999 Univ ers (NS) bolus - 05-17 mL/hr, 500 it y of infusion 06:15: 08:20 mL, IV [place] 500 mL 00 :00 Infusion, Medical ONCE, 1 Branch dose, 03/17/20 at 0115, STAT clindamycin 2020-0 Yes [id number] 300mg Take 1 Univers 300 mg 5-17 capsule by ity of capsule 00:00: mouth 3 [place] 00 (three) Medical times Branch daily. butalbital- 2020-0 Yes [id number] 1{tbl} Take 1 Univers acetaminoph 5-17 tablet by ity of en-caff 00:00: mouth [place] 50-325-40 00 every 6 Medical mg tablet (six) Branch hours as needed (Headache) . clindamycin 2020-0 Yes [id number] 300mg Take 1 Univers 300 mg 5-17 capsule by ity of capsule 00:00: mouth 3 [place] 00 (three) Medical times Branch daily. butalbital- 2020-0 Yes [id number] 1{tbl} Take 1 Univers acetaminoph 5-17 tablet by ity of en-caff 00:00: mouth [place] 50-325-40 00 every 6 Medical mg tablet (six) Branch hours as needed (Headache) . clindamycin 2020-0 Yes [id number] 300mg Take 1 Univers 300 mg 5-17 capsule by ity of capsule 00:00: mouth 3 00 (three) Medical times Branch daily. butalbital- 2020-0 Yes [id number] 1{tbl} Take 1 Univers acetaminoph 5-17 tablet by ity of en-caff 00:00: mouth [place] 50-325-40 00 every 6 Medical mg tablet (six) Branch hours as needed (Headache) . clindamycin 2020-0 Yes [id number] 300mg Take 1 Univers 300 mg 5-17 capsule by ity of capsule 00:00: mouth 3 00 (three) Medical times Branch daily. butalbital- 2020-0 Yes [id number] 1{tbl} Take 1 Univers acetaminoph 5-17 tablet by ity of en-caff 00:00: mouth [place] 50-325-40 00 every 6 Medical mg tablet (six) Branch hours as needed (Headache) . clindamycin 2020-0 Yes [id number] 300mg Take 1 Univers 300 mg 5-17 capsule by ity of capsule 00:00: mouth 3 [place] 00 (three) Medical times Branch daily. butalbital- 2020-0 Yes [id number] 1{tbl} Take 1 Univers acetaminoph 5-17 tablet by ity of en-caff 00:00: mouth [place] 50-325-40 00 every 6 Medical mg tablet (six) Branch hours as needed (Headache) . clindamycin 2020-0 Yes [id number] 300mg Take 1 Univers 300 mg 5-17 capsule by ity of capsule 00:00: mouth 3 [place] 00 (three) Medical times Branch daily. butalbital- 2020-0 Yes [id number] 1{tbl} Take 1 Univers acetaminoph 5-17 tablet by ity of en-caff 00:00: mouth [place] 50-325-40 00 every 6 Medical mg tablet (six) Branch hours as needed (Headache) . clindamycin 2020-0 Yes [id number] 300mg Take 1 Univers 300 mg 5-17 capsule by ity of capsule 00:00: mouth 3 [place] 00 (three) Medical times Branch daily. butalbital- 2020-0 Yes [id number] 1{tbl} Take 1 Univers acetaminoph 5-17 tablet by ity of en-caff 00:00: mouth [place] 50-325-40 00 every 6 Medical mg tablet (six) Branch hours as needed (Headache) . clindamycin 2020-0 Yes [id number] 300mg Take 1 Univers 300 mg 5-17 capsule by ity of capsule 00:00: mouth 3 00 (three) Medical times Branch daily. butalbital- 2020-0 Yes [id number] 1{tbl} Take 1 Univers acetaminoph 5-17 tablet by ity of en-caff 00:00: mouth [place] 50-325-40 00 every 6 Medical mg tablet (six) Branch hours as needed (Headache) . clindamycin 2020-0 Yes [id number] 300mg Take 1 Univers 300 mg 5-17 capsule by ity of capsule 00:00: mouth 3 [place] 00 (three) Medical times Branch daily. butalbital- 2020-0 Yes [id number] 1{tbl} Take 1 Univers acetaminoph 5-17 tablet by ity of en-caff 00:00: mouth [place] 50-325-40 00 every 6 Medical mg tablet (six) Branch hours as needed (Headache) . clindamycin 2020-0 Yes [id number] 300mg Take 1 Univers 300 mg 5-17 capsule by ity of capsule 00:00: mouth 3 [place] 00 (three) Medical times Branch daily. butalbital- 2020-0 Yes [id number] 1{tbl} Take 1 Univers acetaminoph 5-17 tablet by ity of en-caff 00:00: mouth [place] 50-325-40 00 every 6 Medical mg tablet (six) Branch hours as needed (Headache) . Ondansetron 2020-0 No 4mg WILL U Hcl 3-[address] (Zofran) 4 01:24: [place] Mg TAB 00 th Tramadol 2020-0 No 50mg [facility] Hcl 3[facility] (Ultram) 50 01:24: [place] e Mg TAB 00 th Methocarbam 2020-0 No 750mg Every 4 CH RISTU ol 3-07 Hours as S (Robaxin) 01:24: needed for He alth 750 Mg 00 Moderate TABLET Pain(4-6) Ondansetron 2020-0 No 4mg Every 6 - C [facility]U Hcl 3-07 8 Hours as S (Zofran) 4 01:24: needed for H ealth Mg TAB 00 Nausea / Vomiting Tramadol 2020-0 No 50mg Every 6 WILL U Hcl 3-07 Hours as S (Ultram) 50 01:24: needed for Health Mg TAB 00 Moderate Pain(4-6) Methocarbam 2020-0 No 750mg JEMMA TU ol 3-[address] (Robaxin) 01:24: [place] 750 Mg 00 th TABLET Vital Signs Vital Name Observation Time Observation Value Comments Source Body temperature 2021-11-06 10:36:00 37.67 Katelyn [facility] Respiratory rate 2021-11-06 10:36:00 16 /min [facility] Heart rate 2021-11-06 09:31:00 109 /min [facility] Oxygen saturation in 2021-11-06 09:31:00 94 /min [facility] Arterial blood by [facility] Pulse oximetry Branch Systolic blood 2021-11-06 08:00:00 123 mm[Hg] Tony welsh [facility] Diastolic blood 2021-11-06 08:00:00 80 mm[Hg] [facility] Body weight 2021-11-06 06:54:00 81.647 kg [facility] BMI 2021-11-06 06:54:00 29.05 kg/m2 [facility] [place] [facility] Systolic blood 2021-10-31 17:00:00 118 mm[Hg] Univer sity of pressure [place] [facility] Diastolic blood 2021-10-31 17:00:00 77 mm[Hg] Unive rsity of pressure [place] [facility] Heart rate 2021-10-31 17:00:00 91 /min [facility] [place] [facility] Respiratory rate 2021-10-31 17:00:00 16 /min [facility] [place] [facility] Oxygen saturation in 2021-10-31 17:00:00 97 /min [facility] Arterial blood by [place] [facility] Pulse oximetry Branch Body temperature 2021-10-31 14:43:00 39 Katelyn [facility] [place] [facility] Body height 2021-10-31 14:43:00 167.6 cm [facility] [place] [facility] Body weight 2021-10-31 14:43:00 81.647 kg [facility] [place] [facility] BMI 2021-10-31 14:43:00 29.05 kg/m2 [facility] [place] [facility] Systolic blood 2021-05-26 23:57:00 123 mm[Hg] Univer sity of pressure [place] [facility] Diastolic blood 2021-05-26 23:57:00 88 mm[Hg] Unive rsity of pressure [place] [facility] Heart rate 2021-05-26 23:57:00 92 /min [facility] [place] [facility] Respiratory rate 2021-05-26 23:57:00 18 /min [facility] [place] [facility] Oxygen saturation in 2021-05-26 23:57:00 99 /min University of Arterial blood by [place] [facility] Pulse oximetry Branch Body temperature 2021-05-26 22:18:00 37.22 Katelyn [facility] [place] [facility] Body height 2021-05-26 22:18:00 162.6 cm [facility] Body weight 2021-05-26 22:18:00 81.647 kg [facility] BMI 2021-05-26 22:18:00 30.90 kg/m2 [facility] Systolic blood 2020-10-12 11:58:00 96 mm[Hg] [facility] Diastolic blood 2020-10-12 11:58:00 76 mm[Hg] [facility] Heart rate 2020-10-12 11:58:00 122 /min [facility] Body temperature 2020-10-12 11:58:00 36.33 Katelyn [facility] Respiratory rate 2020-10-12 11:58:00 14 /min [facility] Oxygen saturation in 2020-10-12 11:58:00 97 /min [facility] of Arterial blood by [facility] luis Pulse oximetry Branch Body weight 2020-10-12 10:01:00 81.647 kg [facility] BMI 2020-10-12 10:01:00 29.95 kg/m2 [facility] Systolic blood 2020-08-16 18:00:00 124 mm[Hg] [facility] Diastolic blood 2020-08-16 18:00:00 91 mm[Hg] [facility] Heart rate 2020-08-16 18:00:00 100 /min [facility] Respiratory rate 2020-08-16 18:00:00 16 /min [facility] Oxygen saturation in 2020-08-16 18:00:00 97 /min [facility] Arterial blood by [facility] Pulse oximetry Branch Body temperature 2020-08-16 17:35:18 36.89 Katelyn [facility] Body weight 2020-08-16 17:13:00 81.647 kg [facility] BMI 2020-08-16 17:13:00 29.95 kg/m2 [facility] Systolic blood 2020-08-13 15:20:00 155 mm[Hg] [facility] Diastolic blood 2020-08-13 15:20:00 99 mm[Hg] [facility] Heart rate 2020-08-13 15:20:00 97 /min [facility] Body temperature 2020-08-13 15:20:00 36.94 Katelyn [facility] Respiratory rate 2020-08-13 15:20:00 20 /min [facility] Body height 2020-08-13 15:20:00 165.1 cm [facility] Body weight 2020-08-13 15:20:00 81.647 kg [facility] BMI 2020-08-13 15:20:00 29.95 kg/m2 [facility] Oxygen saturation in 2020-08-13 15:20:00 98 /min [facility] Arterial blood by [facility] luis Pulse oximetry Branch Heart rate 2020-08-02 03:50:00 99 /min [facility] Respiratory rate 2020-08-02 03:50:00 12 /min [facility] Oxygen saturation in 2020-08-02 03:50:00 98 /min [facility] Arterial blood by [facility] Pulse oximetry Branch Systolic blood 2020-08-02 03:20:00 117 mm[Hg] [facility] Diastolic blood 2020-08-02 03:20:00 84 mm[Hg] Unive rsity of pressure [facility] Body temperature 2020-08-02 01:08:00 36.83 Katelyn [facility] Body height 2020-08-02 01:08:00 165.1 cm [facility] Body weight 2020-08-02 01:08:00 81.647 kg [facility] BMI 2020-08-02 01:08:00 29.95 kg/m2 [facility] Systolic blood 2020-03-17 08:00:00 111 mm[Hg] [facility] Diastolic blood 2020-03-17 08:00:00 88 mm[Hg] [facility] Heart rate 2020-03-17 08:00:00 108 /min [facility] Respiratory rate 2020-03-17 08:00:00 20 /min [facility] Oxygen saturation in 2020-03-17 08:00:00 98 /min [facility] Arterial blood by [facility] Pulse oximetry Branch Body temperature 2020-03-17 04:46:00 38.89 Katelyn [facility] Body height 2020-03-17 04:46:00 165.1 cm [facility] Body weight 2020-03-17 04:46:00 83.915 kg [facility] BMI 2020-03-17 04:46:00 30.79 kg/m2 [facility] Respiratory rate 2020-01-06 05:42:00 18 /min [facility] BP Systolic 2020-01-06 05:42:00 118 mm[Hg] [facility] Body Temperature 2020-01-06 05:30:00 98.1 [degF] [facility] Heart Rate 2020-01-06 05:30:00 87 /min [facility] Respiratory rate 2020-01-06 05:30:00 18 /min [facility] BP Systolic 2020-01-06 05:30:00 118 mm[Hg] [facility] BP Diastolic 2020-01-06 05:30:00 72 mm[Hg] [facility] Weight 2020-01-06 00:20:00 185 [lb_av] [facility] BMI (Body Mass 2020-01-06 00:20:00 29.9 kg/m2 [facility] US Health Index) Procedures Procedure Date / Time Performing Clinician Source Performed XR CHEST 1 VW 2021-11-06 08:28:00 John Neumann [facility] CT 2021-11-06 08:17:00 John Neumann [facility] MAXILLOFACIAL/MANDIBLE Medical [place] WO CONTRAST LACTIC ACID WHOLE BLOOD 2021-11-06 07:38:00 John Neumann [facility] POCT TEST 2021-11-06 07:28:00 John Neumann [facility] CREATINE KINASE 2021-11-06 07:25:00 John Neumann [facility] TROPONIN I 2021-11-06 07:25:00 John Neumann [facility] FREE T4 2021-11-06 07:25:00 John Neumann [facility] THYROID STIMULATING 2021-11-06 07:25:00 John Neumann [facility] HORMONE [facility] COMP. METABOLIC PANEL 2021-11-06 07:25:00 John Neumann [facility] ([id number]) [facility] CBC WITH DIFF 2021-11-06 07:25:00 John Neumann [facility] PROTHROMBIN TIME / INR 2021-11-06 07:25:00 John Neumann [facility] ACTIVATED PARTIAL 2021-11-06 07:25:00 John Neumann [facility] THRMPLAS NATHANAEL [facility] URINALYSIS 2021-11-06 07:25:00 John Neumann [facility] N-TERMINAL PRO-BNP 2021-11-06 07:25:00 [facility] (IMMUNOASSAY[facility] 2021-11-06 07:25:00 John Neumann [facility] nch SCREEN W/O REFLEX CT HEAD WO CONTRAST 2021-10-31 15:58:54 Leo Graham [facility] XR CHEST 1 VW 2021-10-31 15:56:01 Leo Graham [facility] POCT TEST 2021-10-31 15:32:00 Leo Graham [facility] URINALYSIS 2021-10-31 15:31:00 Leo Graham [facility] COMP. METABOLIC PANEL 2021-10-31 14:59:00 Leo Graham [facility] ([id number]) [facility] CBC WITH DIFF 2021-10-31 14:59:00 Leo Graham [facility] RAPID STREP SCREEN FOR 2021-10-31 14:59:00 Leo Graham [facility] POCT GLUCOSE (AUTOMATED) 2021-05-26 23:56:00 Po Velazco [facility] POCT TEST 2021-05-26 23:07:00 Po Velazco [facility] BASIC METABOLIC PANEL 2021-05-26 23:00:00 Po Velazco [facility] (NA, K, CL, CO2, [facility] [place] GLUCOSE, BUN, CREATININE, CA) CBC WITHOUT DIFF 2021-05-26 23:00:00 Po Velazco [facility] URINALYSIS 2021-05-26 23:00:00 Po Velazco [facility] POCT GLUCOSE (AUTOMATED) 2021-05-26 22:21:00 Po Velazco [facility] NOTICE OF PRIVACY 2021-05-26 22:02:25 Doctor Unassigned, No [facility] PRACTICES Name Medical Branch CONSENT/REFUSAL FOR 2021-05-26 22:02:08 [facility], [facility] Name Medical Branch POCT GLUCOSE (AUTOMATED) 2020-10-12 11:44:00 [facility] [place] [facility] TRAUMA HEAD WO 2020-10-12 10:41:03 Elmer Grigsby [facility] CONTRAST Medical Branch CT TRAUMA CERVICAL SPINE 2020-10-12 10:41:03 [facility] CT TRAUMA THORACIC SPINE 2020-10-12 10:41:03 [facility] WO CONTRAST Medical Branch CT TRAUMA LUMBAR SPINE 2020-10-12 10:41:03 Elmer Grigsby [facility] WO CONTRAST Medical Branch CT TRAUMA THORAX W 2020-10-12 10:39:48 Elmer Grigsby [facility] CONTRAST Medical Branch CT TRAUMA ABDOMEN PELVIS 2020-10-12 10:39:48 [facility] Medical Branch POCT TEST 2020-10-12 10:14:56 Elmer Grigsby [facility] LIPASE 2020-10-12 10:06:00 Elmer Grigsby [facility] COMP. METABOLIC PANEL 2020-10-12 10:06:00 Elmer Grigsby [facility] ([id number]) [facility] [place] CBC WITH DIFF 2020-10-12 10:06:00 Elmer Grigsby [facility] XR CHEST 1 VW 2020-08-16 17:58:44 Gomez Guerrier [facility] RAPID STREP SCREEN FOR 2020-08-16 17:29:00 Gomez Guerrier [facility] GROUP [facility] Medical Branch POCT TEST 2020-08-16 17:28:00 Gomez Guerrier [facility] CONSENT/REFUSAL FOR 2020-08-16 16:58:51 Doctor Unassigned, No [facility]REATMENT Name Medical Branch CONSENT/REFUSAL FOR 2020-08-13 15:14:02 Doctor [facility]igned, No [facility] Name [facility] POCT GLUCOSE (AUTOMATED) 2020-08-02 03:32:00 Antwon Mandujano [facility] XR CHEST 1 VW 2020-08-02 02:45:18 Antwon Mandujano [facility] POCT GLUCOSE (AUTOMATED) 2020-08-02 02:33:00 Antwon Mandujano [facility] TROPONIN I 2020-08-02 02:05:00 Antwon Mandujano [facility] THYROID STIMULATING 2020-08-02 02:05:00 Antwon Mandujano [facility] HORMONE [facility] Branch COMP. METABOLIC PANEL 2020-08-02 02:05:00 Antwon Mandujano [facility] ([id number]) [facility] CBC WITH DIFF 2020-08-02 02:05:00 Antwon Mandujano [facility] EKG-12 LEAD 2020-08-02 01:43:37 Antwon Mandujano [facility] CONSENT/REFUSAL FOR 2020-08-02 01:01:53 Doctor Unassigned, No [facility] [place] [facility] Name [facility] URINALYSIS 2020-03-17 06:19:00 Elmer Grigsby [facility] POCT TEST 2020-03-17 06:19:00 Elmer Grigsby [facility] COMP. METABOLIC PANEL 2020-03-17 05:20:00 Elmer Grigsby [facility] ([id number]) [facility] CBC WITH DIFFERENTIAL 2020-03-17 05:20:00 [facility] LACTIC ACID WHOLE BLOOD 2020-03-17 05:19:00 Elmer Grigsby [facility] CORONAVIRUS COVID-19 2020-03-17 05:17:00 Elmer Grigsby [facility] TESTING [facility] NOTICE OF PRIVACY 2020-03-17 04:41:30 Doctor Unassigned, No [facility] Name [facility] Branch CONSENT/REFUSAL FOR 2020-03-17 04:39:33 Doctor Unassigned, No [facility] [place] [facility]REAT[facility] Name Medical Branch Computed tomography of 2020-01-06 00:00:00 [facility] head or brain without contrast Computed tomography of 2020-01-06 00:00:00 [facility] cervical spine without contrast Computed tomography of 2020-01-06 00:00:00 [facility] abdomen and pelvis with contrast Computed tomography of 2020-01-06 00:00:00 [facility] lungs with intravenous contrast Plan of Care Planned Activity Planned Date Details Comments Source Goal Patient referral [code = [facility] [id number] ] Kerri Goal Patient referral [code = [facility] [id number] ] Kerri Goal Patient referral [code = [facility] [id number] ] Kerri Goal Patient referral [code = [facility] [id number] ] Kerri Goal Patient referral [code = [facility] [id number] ] Kerri Goal Patient referral [code = [facility] [id number] ] Kerri Instructions OTHER [facility] [place] Inst[facility] Concussion, Adult (DC) J[facility] [place] Instructions Low Back Pain (DC) [facility] [place] [facility] Nausea and Vomiting, Adult C [facility] (DC) [facility] Instructions Closed Head Injury (DC) [facility] [place] [facility] Diabetes Type 2 (DC) [facility] [place] Instructions Postconcussion Syndrome [facility] (DC) Kerri Instructions Preventing Falls [facility] Kerri Instructions White Blood Cell Count [facility] Differential Test Kerri Encounters Start End Encounter Admission Attending Care Care Encounter Source Date/Time Date/Time Type Type Clinicians Facility Department ID 2020-01-06 Inpatient PAMELA SANTIAGO [id number] [facility] 00:19:00 [id number] [facility] 2021-11-06 2021-11-06 Emergency X SALVATORE NEUMANN ERT [id number] Univers 00:52:00 04:57:00 JOHN borges [facility] 2021-11-06 2021-11-06 Emergency SALVATORE Neumann [id number] Univers 00:52:00 04:57:00 John PAYAN [id number] i ty [facility] [id number] [facility] [id number] [address] 2021-10-31 2021-10-31 Emergency [facility] E[facility] [id number] Univers 08:41:00 11:14:00 LEO [facility] 2021-10-31 2021-10-31 Emergency Jerilyn, [facility] [id number] Univers 08:41:00 11:14:00 Leo FORRESTERMARQUEZ [id number] ity [facility] [id number] [facility] [id number] [address] 2021-05-26 2021-05-26 Emergency [facility] [id number] Univers 17:23:00 19:27:00 Po Payan [id number] i ty of [place] [id number] [facility] [id number] [address] 2021-05-26 2021-05-26 Emergency X [facility] ERT [id number] Univers 17:00:00 17:00:00 ity [facility] 2020-10-12 2020-10-12 Emergency [facility] [id number] Univers 03:58:00 06:02:00 Elmer [place] [id number] ity of [place] 4.2.7.2.6 [facility] [id number] [address] 2020-10-12 2020-10-12 [facility] [id number] Univers 03:58:00 03:58:00 ELMER ity [facility] 2020-08-16 2020-08-16 Emergency [facility] [id number] Univers 12:14:00 14:03:00 Gomez Payan [id number] i ty of [place] [id number] [facility] [id number] [address] 2020-08-16 2020-08-16 Emergency X [facility] ERT [id number] Univers 11:58:00 11:58:00 ity of [facility] 2020-08-13 2020-08-13 Emergency [facility] [id number] Univers 10:22:00 11:38:00 Antwon S Tyree [id number] i ty of [place] [id number] [facility] [id number] [address] 2020-08-13 2020-08-13 Emergency X DELBERT [facility] ERT [id number] Univers 10:22:00 10:22:00 ANTWON ity of [facility] 2020-08-13 2020-08-13 Telephone MAYCOL Ramirez [id number] Univers 00:00:00 00:00:00 Carolyn ALVARADO [id number] ity of [facility] 4.2.7.2.686 Alex as [id number] [address] 2020-08-13 2020-08-13 Orders Doctor SEVERINO [id number] Univers 00:00:00 00:00:00 Only Unassigned, CHRISTIANO [id number] ity of [facility] 4.2.7.2.686 Alex as [id number] [address] 2020-08-01 2020-08-01 Emergency Antwon Mandujano [facility] [id number] Univers 20:54:00 23:14:00 Po Velazco [id number] ity of [place] [id number] [facility] [id number] [address] 2020-08-01 2020-08-01 Emergency X [facility] ERT [id number] Univers 20:00:00 20:00:00 ity of [facility] 2020-03-16 2020-03-17 Emergency [facility] [id number] Univers 23:52:44 03:23:00 Elmer Payan [id number] ity of [place] [id number] [facility] [id number] [address] 2020-03-16 2020-03-17 Emergency X SEB [facility] ERT [id number] Univers 23:52:44 03:23:00 BLACKRALPH tachojayjay [facility] 2020-01-06 2020-01-06 Departed CURT SANTIAGO [id number] [facility] 01:03:00 05:30:[address] 2020-01-06 2020-01-06 Departed CURT SANTIAGO [id number] [facility] 01:03:00 05:30:[address] Room [facility] Results Test Description Test Time Test Comments Results Result Comments Source FREE T4 2021-11-06 10:02:41 Test Item Value Reference Range Interpretation Comme nts FREE T4 (test code = See_Comment [Autom ated message] The system [id number]) which generated this result transmitted ref erence range: 0.78 - 2.20 ng/dL:. The reference range was not u sed to interpret this result as normal/abnormal. Lab Interpretation (test code = Normal 77267-4) [facility] [id number] 09:40:26 Test Item Value Reference Range Interpretation Comments CK (test code = 0140868064) <20 33-194 L Lab Interpretation (test code = Abnormal 06488-7) [facility] STIMULATING [id number] 08:19:26 Test Item Value Reference Range Interpretation Comments TSH (test code = See_Comment [Automated message] [id number]) The system [employer] h generated this result transmitted ref erence range: 0.45 - 4 .70 mIU/L. The refe rence range was not u sed to interpret this result as normal/abnor mal. Lab Interpretation (test Normal code = 36013-1) [facility] IrvingTROP[facility]IN [id number] 08:02:24 Test Item Value Reference Interpretation Comments Range TROPONIN I (test 0.001 ng/mL See_Comment [Automated code = 8794951959) message] The system which generated this result transmitted reference range : <=0.034. The reference range was not used to interpret this result as normal/abnormal . FIDENCIO (test code = Reference (Normal) FIDENCIO) Range (defined by the 99th percentile reference limit): <= 0.034 ng/mL Note: Cardiac troponin begins to rise 3-4 hours after the onset of ischemia. Repeat in 4-6 hours if the sample was drawn within 3-4 hours of the onset of the symptom and found normal. Diagnosis of myocardial injury is made with acute changes in cTn concentrations with at least one serial sample above the 99th percentile upper reference limit (URL), taken together with the patient's clinical presentation. Biotin has been reported to cause a negative bias, interpret results relative to patient's use of biotin. Lab Interpretation Normal (test code = 74975-5) [facility] Irving[facility]-TERMINAL [id number] 07:59:06 Test Item Value Reference Range Interpretation Comments NT-proBNP (test code 29 pg/mL See_Comment [Autom ated = 8200210111) message] The system which generated this result transmitted reference range : <=125. The reference range was not used to interpret this result as normal/abnormal . FIDENCIO (test code = FIDENCIO) Biotin has been reported to cause a negative bias, interpret results relative to patient's use of biotin. Lab Interpretation Normal (test code = 98373-3) [facility] THRMPLAS [id number] 07:50:03 Test Item Value Reference Range Interpretation Comments APTT Patient (test See_Comment [Automat ed code = 3173-2) message] The system which generated this result transmitted reference range : 23 - 38 Seconds . The reference range was not used to interpr et this result as normal/abnormal . FIDENCIO (test code = FIDENCIO) The [facility] patient population mean normal value for aPTT is 30 seconds. Lab Interpretation Normal (test code = 44211-1) [facility] METABOLIC PANEL (86105)2021-11-06 07:49:22 Test Item Value Reference Range Interpretation Comments NA (test code = 135 mmol/L 135-145 2022757849) K (test code = 4.1 mmol/L 3.5-5.0 0102196791) CL (test code = 100 mmol/L 98-108 7369827074) CO2 TOTAL (test code = 25 mmol/L 23-31 4217263422) AGAP (test code = 2-16 0145685553) BUN (test code = 7 mg/dL 7-23 7180919878) GLUCOSE (test code = 299 mg/dL 70-110 H 2453733449) CREATININE (test code = 0.59 mg/dL 0.50-1.04 1100668674) TOTAL BILI (test code = 0.6 mg/dL 0.1-1.4 2726374844) CALCIUM (test code = 8.5 mg/dL 8.6-10.6 L 0532370408) T PROTEIN (test code = 6.9 g/dL 6.3-8.2 2003891859) ALBUMIN (test code = 4.2 g/dL 3.5-5.0 0390749079) ALK PHOS (test code = 68 U/L 34-122 4713524867) ALTv (test code = 53 U/L 5-35 H 2-6) AST(SGOT) (test code = 40 U/L 13-40 3610161304) eGFR (test code = mL/min/1.73m2 1913831448) FIDENCIO (test code = FIDENCIO) Association of Glomerular Filtration Rate (GFR) and Staging of Kidney Disease* + --+ --+ ------+| GFR (mL/min/1.73 m2) ?| With Kidney Damage ?| ?Without Kidney Damage+ --------+ --------+ +| ?>90 ?| ?Stage one ?| ? Normal ?+ ---+ ---+ -------+| ?60-89 ?| ?Stage two ?| ? Decreased GFR ? + --+ --+ ------+| ?30-59 ?| ?Stage three ?| ? Stage three ? + --+ --+ ------+| ?15-29 ?| ?Stage four ? | ? Stage four ?+ ---+ ---+ -------+| ?<15 (or dialysis) ? ?| ?Stage five ? | ? Stage five ?+ ---+ ---+ -------+ *Each stage assumes the associated GFR level has been in effect for at least three months. ?Stages 1 to 5, with or without kidney disease, indicate chronic kidney disease. Notes: Determination of stages one and two (with eGFR >59mL/min/1.73 m2) requires estimation of kidney damage for at least three months as defined by structural or functional abnormalities of the kidney, manifested by either:Pathological abnormalities or Markers of kidney damage (including abnormalities in the composition of the blood or urine or abnormalities in imaging tests). Lab Interpretation Abnormal (test code = 97914-7) [facility] IrvingPROTHROMBIN [facility] / [id number] 07:47:21 Test Item Value Reference Range Interpretation Comments PROTIME PATIENT (test See_Comment [Auto mated message] code = 5964-2) The system wh ich generated this result transmitted ref erence range: 12.0 - 1 4.7 Seconds. The re ference range was not u sed to interpret this result as normal/abnor mal. INR (test code = 6301-6) Nor mal INR <1.1; Warfarin Therap eutic range 2.0 to 3. 0 or 2.5 to 3.5, dep ending upon the indica tions. Lab Interpretation (test Normal code = 73890-0) [facility] Irving[facility] WITH [id number] 07:40:59 Test Item Value Reference Range Interpretation Comments WBC (test code = See_Comment [Automated 6690-2) message] The sy stem which generated this result transmitted reference range : 4.30 - 11.10 10*3/?L. The reference range was not used to interpret this result as normal/abnormal . RBC (test code = See_Comment H [Automated 789-8) message] The sy stem which generated this result transmitted reference range : 3.93 - 5.25 10*6/?L. The reference range was not used to interpret this result as normal/abnormal . HGB (test code = 15.8 g/dL 11.6-15.0 H 718-7) HCT (test code = 47.3 % 35.7-45.2 H 4544-3) MCV (test code = 81.8 fL 80.6-95.5 787-2) MCH (test code = 27.3 pg 25.9-32.8 785-6) MCHC (test code = 33.4 g/dL 31.6-35.1 786-4) RDW-SD (test code = 35.6 fL 39.0-49.9 L 09039-7) RDW-CV (test code = 11.9 % 12.0-15.5 L 788-0) PLT (test code = See_Comment L [Automated 777-3) message] The sy stem which generated this result transmitted reference range : 166 - 358 10*3/ ?L. The reference r can was not used to interpret this result as normal/abnormal . MPV (test code = 11.9 fL 9.5-12.9 15758-1) IPF % (test code = 5.1 % 1.3-7.7 Platelet count 4201695284) measured by fluorescence method. NRBC/100 WBC (test See_Comment [Automat ed code = 2156823759) message] The system which generated this result transmitted reference range : 0.0 - 10.0 /100 WBCs. The refer ence range was not u sed to interpret th is result as normal/abnormal . NRBC x10^3 (test code <0.01 See_Comment [Auto mated = 5314800137) message] The s ystem which generated this result transmitted reference range : 10*3/?L. The reference range was not used to interpret this result as normal/abnormal . GRAN MAT (NEUT) % 83.4 % (test code = 770-8) IMM GRAN % (test code 0.40 % = 5080754585) LYMPH % (test code = 10.8 % 736-9) MONO % (test code = 5.0 % 5905-5) EOS % (test code = 0.1 % 713-8) BASO % (test code = 0.3 % 706-2) GRAN MAT x10^3(ANC) 6.11 10*3/uL 1.88-7.09 (test code = 0146080045) IMM GRAN x10^3 (test 0.03 10*3/uL 0.00-0.06 code = 5963586591) LYMPH x10^3 (test code 0.79 10*3/uL 1.32-3.29 L = 731-0) MONO x10^3 (test code 0.37 10*3/uL 0.33-0.92 = 742-7) EOS x10^3 (test code = <0.03 0.03-0.39 L 711-2) BASO x10^3 (test code <0.03 0.01-0.07 = 704-7) Lab Interpretation Abnormal (test code = 57857-1) [id number] 07:28:00 Test Item Value Reference Range Interpretation Comments POCT PREG (test code = 1605) neg On board controls acceptable with present C Line (test code = 3574) POCT PREG LOT # (test code = 3575) [id number] POCT PREG TEST DATE (test 12/29/2022 code = 3576) Lab Interpretation (test code = Normal 84634-3) [facility]. METABOLIC PANEL (51992)2021-10-31 15:48:15 Test Item Value Reference Range Interpretation Comments NA (test code = 132 mmol/L 135-145 L 7777774687) K (test code = 4.4 mmol/L 3.5-5.0 6550835210) CL (test code = 101 mmol/L 98-108 8000176427) CO2 TOTAL (test code = 23 mmol/L 23-31 1294723811) AGAP (test code = 2-16 3589165379) BUN (test code = 9 mg/dL 7-23 5731203643) GLUCOSE (test code = 317 mg/dL 70-110 H 7726370702) CREATININE (test code = 0.54 mg/dL 0.50-1.04 5256537756) TOTAL BILI (test code = 0.7 mg/dL 0.1-1.9 4535173276) CALCIUM (test code = 8.7 mg/dL 8.6-10.6 9358634902) T PROTEIN (test code = 7.1 g/dL 6.3-8.2 0259424848) ALBUMIN (test code = 4.3 g/dL 3.5-5.0 4390291323) ALK PHOS (test code = 67 U/L 34-122 2794016903) ALTv (test code = 56 U/L 5-35 H 1742-6) AST(SGOT) (test code = 58 U/L 13-40 H 3127343151) eGFR (test code = mL/min/1.73m2 5492381391) FIDENCIO (test code = FIDENCIO) Association of Glomerular Filtration Rate (GFR) and Staging of Kidney Disease* + --+ --+ ------+| GFR (mL/min/1.73 m2) ?| With Kidney Damage ?| ?Without Kidney Damage+ --------+ --------+ +| ?>90 ?| ?Stage one ?| ? Normal ?+ ---+ ---+ -------+| ?60-89 ?| ?Stage two ?| ? Decreased GFR ? + --+ --+ ------+| ?30-59 ?| ?Stage three ?| ? Stage three ? + --+ --+ ------+| ?15-29 ?| ?Stage four ? | ? Stage four ?+ ---+ ---+ -------+| ?<15 (or dialysis) ? ?| ?Stage five ? | ? Stage five ?+ ---+ ---+ -------+ *Each stage assumes the associated GFR level has been in effect for at least three months. ?Stages 1 to 5, with or without kidney disease, indicate chronic kidney disease. Notes: Determination of stages one and two (with eGFR >59mL/min/1.73 m2) requires estimation of kidney damage for at least three months as defined by structural or functional abnormalities of the kidney, manifested by either:Pathological abnormalities or Markers of kidney damage (including abnormalities in the composition of the blood or urine or abnormalities in imaging tests). Lab Interpretation Abnormal (test code = 90672-8) [facility] [id number] 15:32:00 Test Item Value Reference Range Interpretation Comments POCT PREG (test code = 1605) negative On board controls acceptable with present C Line (test code = 3574) POCT PREG LOT # (test code = 3575) [id number] POCT PREG TEST DATE (test 12/29/2022 code = 3576) Lab Interpretation (test code = Normal 46675-8) [facility] WITH [id number] 15:11:56 Test Item Value Reference Range Interpretation Comments WBC (test code = See_Comment [Automated 6642-2) message] The sy stem which generated this result transmitted reference range : 4.30 - 11.10 10*3/?L. The reference range was not used to interpret this result as normal/abnormal . RBC (test code = See_Comment H [Automated 818-8) message] The sy stem which generated this result transmitted reference range : 3.93 - 5.25 10*6/?L. The reference range was not used to interpret this result as normal/abnormal . HGB (test code = 14.7 g/dL 11.6-15.0 718-7) HCT (test code = 44.5 % 35.7-45.2 4544-3) MCV (test code = 82.1 fL 80.6-95.5 787-2) MCH (test code = 27.1 pg 25.9-32.8 785-6) MCHC (test code = 33.0 g/dL 31.6-35.1 786-4) RDW-SD (test code = 35.9 fL 39.0-49.9 L 73068-3) RDW-CV (test code = 12.0 % 12.0-15.5 788-0) PLT (test code = See_Comment L [Automated 777-3) message] The sy stem which generated this result transmitted reference range : 166 - 358 10*3/ ?L. The reference r can was not used to interpret this result as normal/abnormal . MPV (test code = 12.8 fL 9.5-12.9 88154-9) NRBC/100 WBC (test See_Comment [Automat ed code = 6621162712) message] The system which generated this result transmitted reference range : 0.0 - 10.0 /100 WBCs. The refer ence range was not u sed to interpret th is result as normal/abnormal . NRBC x10^3 (test code <0.01 See_Comment [Auto mated = 0051314352) message] The s ystem which generated this result transmitted reference range : 10*3/?L. The reference range was not used to interpret this result as normal/abnormal . GRAN MAT (NEUT) % 67.2 % (test code = 770-8) IMM GRAN % (test code 0.50 % = 2075341322) LYMPH % (test code = 20.1 % 736-9) MONO % (test code = 11.6 % 5905-5) EOS % (test code = 0.3 % 713-8) BASO % (test code = 0.3 % 706-2) GRAN MAT x10^3(ANC) 4.34 10*3/uL 1.88-7.09 (test code = 4835029550) IMM GRAN x10^3 (test 0.03 10*3/uL 0.00-0.06 code = 8693028844) LYMPH x10^3 (test code 1.30 10*3/uL 1.32-3.29 L = 731-0) MONO x10^3 (test code 0.75 10*3/uL 0.33-0.92 = 742-7) EOS x10^3 (test code = <0.03 0.03-0.39 L 711-2) BASO x10^3 (test code <0.03 0.01-0.07 = 704-7) Lab Interpretation Abnormal (test code = 53617-5) [facility] GLUCOSE (AUTOMATED)2021-05-27 00:02:41 Test Item Value Reference Range Interpretation Comments POCT GLU (test code = 0521644181) 326 mg/dL 70-110 H Lab Interpretation (test code = Abnormal 04974-7) [facility] GLUCOSE(AGE >30DAYS)2021-05-26 23:56:00 Test Item Value Reference Range Interpretation Comments POCT Glu (age>30days) (test code = 326 mg/dL 70-110 A 3342) Lab Interpretation (test code = Abnormal 36571-3) [facility] 23:29:54 Test Item Value Reference Range Interpretation Comments APPEARANCE (test code = Clear Clear 4366603055) COLOR (test code = Straw Yellow A 8976275740) PH (test code = 4.8-8.0 8475530591) SP GRAVITY (test code = 1.003-1.030 H 1644020594) GLU U QUAL (test code = 500 mg/dL Normal A 9149265371) BLOOD (test code = Negative Negative 4494689602) KETONES (test code = Negative Negative 3203623961) PROTEIN (test code = Negative Negative 2887-8) UROBILIN (test code = Normal Normal 4381441025) BILIRUBIN (test code = Negative Negative 6489156992) NITRITE (test code = Negative Negative 4529379595) LEUK FRITZ (test code = Negative Negative 3804137155) RBC/HPF (test code = See_Comment H [Autom ated message] 3670599397) The system [employer] generated this result transmit elias reference range : 0 - 3 HPF. The refe rence range was not u sed to interpret th is result as normal/abnormal . WBC/HPF (test code = See_Comment [Autom ated message] 4261801456) The system [employer] generated this result transmit elias reference range : 0 - 5 HPF. The refe rence range was not u sed to interpret th is result as normal/abnormal . BACTERIA (test code = Negative Negative 3475892262) SQ EPITH (test code = HPF 6352206276) Lab Interpretation (test Abnormal code = 27373-2) [facility] METABOLIC PANEL (NA, K, CL, CO2, GLUCOSE, BUN, CREATININE, CA)2021-05-26 23:27:11 Test Item Value Reference Range Interpretation Comments NA (test code = 135 mmol/L 135-145 5462438543) K (test code = 4.0 mmol/L 3.5-5.0 9334320802) CL (test code = 98 mmol/L 98-108 1959736215) CO2 TOTAL (test code = 28 mmol/L 23-31 3575134166) AGAP (test code = 2-16 9024184609) BUN (test code = 14 mg/dL 7-23 1944362708) GLUCOSE (test code = 388 mg/dL 70-110 H 1450787051) CREATININE (test code = 0.68 mg/dL 0.50-1.04 5787417395) CALCIUM (test code = 10.0 mg/dL 8.6-10.6 8177670404) eGFR (test code = mL/min/1.73m2 8313055641) FIDENCIO (test code = FIDENCIO) Association of Glomerular Filtration Rate (GFR) and Staging of Kidney Disease* + --+ --+ ------+| GFR (mL/min/1.73 m2) ?| With Kidney Damage ?| ?Without Kidney Damage+ --------+ --------+ +| ?>90 ?| ?Stage one ?| ? Normal ?+ ---+ ---+ -------+| ?60-89 ?| ?Stage two ?| ? Decreased GFR ? + --+ --+ ------+| ?30-59 ?| ?Stage three ?| ? Stage three ? + --+ --+ ------+| ?15-29 ?| ?Stage four ? | ? Stage four ?+ ---+ ---+ -------+| ?<15 (or dialysis) ? ?| ?Stage five ? | ? Stage five ?+ ---+ ---+ -------+ *Each stage assumes the associated GFR level has been in effect for at least three months. ?Stages 1 to 5, with or without kidney disease, indicate chronic kidney disease. Notes: Determination of stages one and two (with eGFR >59mL/min/1.73 m2) requires estimation of kidney damage for at least three months as defined by structural or functional abnormalities of the kidney, manifested by either:Pathological abnormalities or Markers of kidney damage (including abnormalities in the composition of the blood or urine or abnormalities in imaging tests). Lab Interpretation Abnormal (test code = 83058-8) [facility] WITHOUT [id number] 23:15:04 Test Item Value Reference Range Interpretation Comments WBC (test code = 6690-2) See_Comment [A utomated message] The system Medip[employer] generated this result transmit elias reference range : 4.30 - 11.10 10*3/?L. The reference range was not used to interpret this result as normal/abnormal . RBC (test code = 789-8) See_Comment H [Au tomated message] The system Medip[employer] generated this result transmit elias reference range : 3.93 - 5.25 10* 6/?L. The reference r can was not used to interpret this result as normal/abnormal . HGB (test code = 718-7) 16.1 g/dL 11.6-15.0 H HCT (test code = 4544-3) 48.9 % 35.7-45.2 H MCH (test code = 785-6) 27.1 pg 25.9-32.8 MCV (test code = 787-2) 82.2 fL 80.6-95.5 MCHC (test code = 786-4) 32.9 g/dL 31.6-35.1 PLT (test code = 777-3) See_Comment [Au tomated message] The system [employer] generated this result transmit elias reference range : 166 - 358 10*3/?L. The reference range was not used to interpret this result as normal/abnormal . MPV (test code = 12.3 fL 9.5-12.9 11646-1) RDW-CV (test code = 11.9 % 12.0-15.5 L 788-0) RDW-SD (test code = 35.8 fL 39.0-49.9 L 49965-0) NRBC x10^3 (test code = <0.01 See_Comment [Au tomated message] 3508343222) The system [employer] h generated this result transmit elias reference range : 10*3/?L. The reference range was not used to interpret this result as normal/abnormal . NRBC/100 WBC (test code See_Comment [Au tomated message] = 3520186531) The system [employer] generated this result transmit elias reference range : 0.0 - 10.0 /100 WBC s. The reference r can was not used to interpret this result as normal/abnormal . IPF % (test code = 3093883719) Lab Interpretation (test Abnormal code = 60469-4) [facility] [id number] 23:07:00 Test Item Value Reference Range Interpretation Comments POCT PREG (test code = 1605) negative On board controls acceptable with present C Line (test code = 3574) POCT PREG LOT # (test code = 3575) [id number] POCT PREG TEST DATE (test code = 3576) Lab Interpretation (test code = Normal 99429-1) [facility] GLUCOSE (AUTOMATED)2021-05-26 22:26:37 Test Item Value Reference Range Interpretation Comments POCT GLU (test code = 3744072888) 404 mg/dL 70-110 H Lab Interpretation (test code = Abnormal 93805-1) [facility] GLUCOSE (AUTOMATED)2020-10-12 11:46:00 Test Item Value Reference Range Interpretation Comments POCT GLU (test code = 1411223825) 299 mg/dL 70-110 H Lab Interpretation (test code = Abnormal 66653-2) [facility]. METABOLIC PANEL (40210)2020-10-12 10:24:00 Test Item Value Reference Range Interpretation Comments NA (test code = 135 mmol/L 135-145 0331332060) K (test code = 3.6 mmol/L 3.5-5 0188646636) CL (test code = 100 mmol/L 98-108 4999013743) CO2 TOTAL (test code = 24 mmol/L 23-31 1505158811) AGAP (test code = 2-16 5784101039) BUN (test code = 17 mg/dL 7-23 6349032694) GLUCOSE (test code = 344 mg/dL 70-110 H 7451889290) CREATININE (test code = 0.66 mg/dL 0.5-1.04 3644436130) TOTAL BILI (test code = 0.6 mg/dL 0.1-1.3 4251731926) CALCIUM (test code = 9.1 mg/dL 8.6-10.6 5772448093) T PROTEIN (test code = 7.3 g/dL 6.3-8.2 0341893337) ALBUMIN (test code = 4.4 g/dL 3.5-5 1831254459) ALK PHOS (test code = 70 U/L 34-122 1575424017) ALTv (test code = 23 U/L 5-35 1742-6) AST(SGOT) (test code = 21 U/L 13-40 9433456054) eGFR Calculation mL/min/1.73m2 (Non-) (test code = 1901450108) eGFR Calculation mL/min/1.73m2 () (test code = 5789805549) FIDENCIO (test code = FIDENCIO) Association of Glomerular Filtration Rate (GFR) and Staging of Kidney Disease* + --+ --+ ------+| GFR (mL/min/1.73 m2) ?| With Kidney Damage ?| ?Without Kidney Damage+ --------+ --------+ +| ?>90 ?| ?Stage one ?| ? Normal ?+ ---+ ---+ -------+| ?60-89 ?| ?Stage two ?| ? Decreased GFR ? + --+ --+ ------+| ?30-59 ?| ?Stage three ?| ? Stage three ? + --+ --+ ------+| ?15-29 ?| ?Stage four ? | ? Stage four ?+ ---+ ---+ -------+| ?<15 (or dialysis) ? ?| ?Stage five ? | ? Stage five ?+ ---+ ---+ -------+ *Each stage assumes the associated GFR level has been in effect for at least three months. ?Stages 1 to 5, with or without kidney disease, indicate chronic kidney disease. Notes: Determination of stages one and two (with eGFR >59mL/min/1.73 m2) requires estimation of kidney damage for at least three months as defined by structural or functional abnormalities of the kidney, manifested by either:Pathological abnormalities or Markers of kidney damage (including abnormalities in the composition of the blood or urine or abnormalities in imaging tests). Lab Interpretation Abnormal (test code = 83883-9) [facility]2020[facility] 10:24:00 Test Item Value Reference Range Interpretation Comments LIPASE (test code = 6993742041) 183 U/L 0-220 Lab Interpretation (test code = Normal 11159-7) [facility] [id number] 10:14:56 Test Item Value Reference Range Interpretation Comments On board controls acceptable with present C Line (test code = 3574) POCT PREG LOT # (test code = 3575) [id number] POCT PREG TEST DATE (test 02/28/2022 code = 3576) POCT PREG (test code = 1605) negative Lab Interpretation (test code = Normal 53262-8) [facility] WITH [id number] 10:13:00 Test Item Value Reference Range Interpretation Comments WBC (test code = See_Comment [Automated 1220-2) message] The sy stem which generated this result transmitted reference range : 4.30 - 11.10 10*3/?L. The reference range was not used to interpret this result as normal/abnormal . RBC (test code = See_Comment H [Automated 593-8) message] The sy stem which generated this result transmitted reference range : 3.93 - 5.25 10*6/?L. The reference range was not used to interpret this result as normal/abnormal . HGB (test code = 14.5 g/dL 11.6-15 718-7) HCT (test code = 43.6 % 35.7-45.2 4544-3) MCV (test code = 82.0 fL 80.6-95.5 787-2) MCH (test code = 27.3 pg 25.9-32.8 785-6) MCHC (test code = 33.3 g/dL 31.6-35.1 786-4) RDW-SD (test code = 35.9 fL 39-49.9 L 39119-1) RDW-CV (test code = 12.0 % 12-15.5 788-0) PLT (test code = See_Comment [Automated 777-3) message] The sy stem which generated this result transmitted reference range : 166 - 358 10*3/ ?L. The reference r can was not used to interpret this result as normal/abnormal . MPV (test code = 12.0 fL 9.5-12.9 08331-2) NRBC/100 WBC (test See_Comment [Automat ed code = 5311641947) message] The system which generated this result transmitted reference range : 0.0 - 10.0 /100 WBCs. The refer ence range was not u sed to interpret th is result as normal/abnormal . NRBC x10^3 (test code <0.01 See_Comment [Auto mated = 4230324811) message] The s ystem which generated this result transmitted reference range : 10*3/?L. The reference range was not used to interpret this result as normal/abnormal . GRAN MAT (NEUT) % 65.0 % (test code = 770-8) IMM GRAN % (test code 0.60 % = 5398308431) LYMPH % (test code = 27.0 % 736-9) MONO % (test code = 5.6 % 5905-5) EOS % (test code = 1.2 % 713-8) BASO % (test code = 0.6 % 706-2) GRAN MAT x10^3(ANC) 6.67 10*3/uL 1.88-7.09 (test code = 9364372302) IMM GRAN x10^3 (test 0.06 10*3/uL 0-0.06 code = 4029698575) LYMPH x10^3 (test code 2.77 10*3/uL 1.32-3.29 = 731-0) MONO x10^3 (test code 0.57 10*3/uL 0.33-0.92 = 742-7) EOS x10^3 (test code = 0.12 10*3/uL 0.03-0.39 711-2) BASO x10^3 (test code 0.06 10*3/uL 0.01-0.07 = 704-7) Lab Interpretation Abnormal (test code = 20407-4) [facility] [id number] 18:31:00 Test Item Value Reference Range Interpretation Comments Streptococcus pyogenes (group A) Negative Negative antigen (test code = 33803-1) Lab Interpretation (test code = Normal 17797-5) [facility] 1 [id number] 18:17:43 No acute cardiopulmonary abnormality. Preliminary Report Dictated by Resident: Bridgette Jamison MD., have reviewed this study and agree with theabove report.EXAM: XR CHEST 1 VW 08/16/2020 12:35 PM HISTORY: 30 years-old Female with cough, rule out pneumonia TECHNIQUE: Portable AP view of the chest. COMPARISON: CXR 08/01/2020 FINDINGS: Cardiomediastinal: The cardiomediastinal silhouette is unremarkable. Lungs and pleura: The lungs are clear. No focal consolidation,pneumothorax, or pleural effusion is seen. Musculoskeletal: No acute skeletal abnormality. [facility], Radiant Results Inft User - 08/16/2020 1:18 PM CDTEXAM: XR CHEST 1 08/16/2020 12:35 PMHISTORY: 30 years-old Female with cough, rule out pneumonia TECHNIQUE: Portable AP view of the chest. COMPARISON: CXR 08/01/2020FINDINGS: Cardiomediastinal: The cardiomediastinal silhouette is unremarkable.Lungs and pleura: The lungs are clear. No focal consolidation,pneumothorax, or pleural effusion is seen.Musculoskeletal: No ac carrie skeletal abnormality.IMPRESSIONNo acute cardiopulmonary abnormality.Preliminary Report Dictated by Resident: Bridgette Key MD., have reviewed this study and agree with theabove report. [facility] [id number] 17:28:00 Test Item Value Reference Range Interpretation Comments POCT PREG (test code = 1605) negative POCT PREG LOT # (test code = 3575) [id number] POCT PREG TEST DATE (test 01/29/2022 code = 3576) Lab Interpretation (test code = Normal 04931-0) [facility] [id number] 03:48:00 Test Item Value Reference Range Interpretation Comments TSH (test code = See_Comment [Automated message] 9295966992) The system [employer] generated this result transmitted ref erence range: 0.45 - 4 .70 mIU/L. The refe rence range was not u sed to interpret this result as normal/abnor mal. Lab Interpretation (test Normal code = 95886-8) [facility] GLUCOSE (AUTOMATED)2020-08-02 03:36:00 Test Item Value Reference Range Interpretation Comments POCT GLU (test code = 4328030124) 457 mg/dL 70-110 HH Lab Interpretation (test code = Abnormal 23251-7) [facility] GLUCOSE (AUTOMATED)2020-08-02 03:36:00 Test Item Value Reference Range Interpretation Comments POCT GLU (test code = 2562220059) 270 mg/dL 70-110 H Lab Interpretation (test code = Abnormal 47556-7) [facility] IrvingXR [facility] 1 [id number] 03:13:37 No acute cardiopulmonary abnormality. Preliminary Report Dictated by Resident: Latoya Headley MD., have reviewed this study and agree with theabove report.EXAM: XR CHEST 1 VWHISTORY: chest pain, dizziness COMPARISON: None Technique: ?AP view radiograph of the chest FINDINGS: The lungs are clear. No focal consolidation, pleural effusion orpneumothorax is seen. The cardiac silhouette is normal in size. No acute bony abnormality. [facility], Radiant Results Inft User - 08/01/2020 10:14 PM CDTEXAM: XR CHEST 1 VWHISTORY: chest pain, dizziness COMPARISON: NoneTechnique: AP view radiograph of the chestFINDINGS:The lungs are clear. No focal consolidation, pleural effusion orpneumothorax is seen. The cardiac silhouette is normal in size.No acute bony abnormality.IMPRESSIONNo acutecardiopulmonary abnormality.Preliminary Report Dictated by Resident: Latoya Villalta MD., have reviewed this study and agree with theabove report.[facility] TROPONIN [id number] 02:52:00 Test Item Value Reference Range Interpretation Comments TROPONIN I (test <0.012 See_Comment [Automated code = 2368323122) message] The system which generated this result transmitted reference range : <=0.034 ng/mL. The reference range was not used to interpr et this result as normal/abnormal . FIDENCIO (test code = Equal or Less than FIDENCIO) 0.034 ng/ml---Normal ?Note: Cardiac troponin begins to rise 3-4 hours after the onset of ischemia. Repeat in 4-6 hours if the sample was drawn within 3-4 hours of the onset of the symptom and found normal. Between 0.035 and 0.120 ng/mL--- Borderline. Questionable myocardial injury or necrosis ? ?Note: Serial measurement may be necessary to confirm or exclude the diagnosis of myocardial injury or necrosis; Clinical correlation (symptoms, EKGs, imaging studies, and others) required; Repeat in 4-6 hours if clinically indicated. ? Equal or Higher than 0.121 ng/mL---Abnormal. Myocardial Injury or Necrosis Likely ? Biotin has been reported to cause a negative bias, interpret results relative to patient's use of biotin. ? Lab Interpretation Normal (test code = 45125-7) [facility] METABOLIC PANEL (81663)2020-08-02 02:49:00 Test Item Value Reference Range Interpretation Comments NA (test code = 136 mmol/L 135-145 2515295698) K (test code = 4.0 mmol/L 3.5-5 6627446498) CL (test code = 99 mmol/L 98-108 6944816126) CO2 TOTAL (test code = 28 mmol/L 23-31 4508644346) AGAP (test code = 2-16 7642063749) BUN (test code = 13 mg/dL 7-23 7130554111) GLUCOSE (test code = 466 mg/dL 70-110 7063862074) CREATININE (test code = 0.70 mg/dL 0.5-1.04 2087214881) TOTAL BILI (test code = 0.4 mg/dL 0.1-1.9 5965962361) CALCIUM (test code = 9.7 mg/dL 8.6-10.6 8003433767) T PROTEIN (test code = 7.0 g/dL 6.3-8.2 1184428610) ALBUMIN (test code = 4.5 g/dL 3.5-5 1386873878) ALK PHOS (test code = 64 U/L 34-122 1320575683) ALTv (test code = 25 U/L 5-35 1742-6) AST(SGOT) (test code = 21 U/L 13-40 8925065094) eGFR Calculation mL/min/1.73m2 (Non-) (test code = 3981253242) eGFR Calculation mL/min/1.73m2 () (test code = 1997677481) FIDENCIO (test code = FIDENCIO) Association of Glomerular Filtration Rate (GFR) and Staging of Kidney Disease* + --+ --+ ------+| GFR (mL/min/1.73 m2) ?| With Kidney Damage ?| ?Without Kidney Damage+ --------+ --------+ +| ?>90 ?| ?Stage one ?| ? Normal ?+ ---+ ---+ -------+| ?60-89 ?| ?Stage two ?| ? Decreased GFR ? + --+ --+ ------+| ?30-59 ?| ?Stage three ?| ? Stage three ? + --+ --+ ------+| ?15-29 ?| ?Stage four ? | ? Stage four ?+ ---+ ---+ -------+| ?<15 (or dialysis) ? ?| ?Stage five ? | ? Stage five ?+ ---+ ---+ -------+ *Each stage assumes the associated GFR level has been in effect for at least three months. ?Stages 1 to 5, with or without kidney disease, indicate chronic kidney disease. Notes: Determination of stages one and two (with eGFR >59mL/min/1.73 m2) requires estimation of kidney damage for at least three months as defined by structural or functional abnormalities of the kidney, manifested by either:Pathological abnormalities or Markers of kidney damage (including abnormalities in the composition of the blood or urine or abnormalities in imaging tests). Lab Interpretation Abnormal (test code = 36359-7) [facility] WITH [id number] 02:26:00 Test Item Value Reference Range Interpretation Comments WBC (test code = See_Comment [Automated 6690-2) message] The sy stem which generated this result transmitted reference range : 4.30 - 11.10 10*3/?L. The reference range was not used to interpret this result as normal/abnormal . RBC (test code = See_Comment H [Automated 789-8) message] The sy stem which generated this result transmitted reference range : 3.93 - 5.25 10*6/?L. The reference range was not used to interpret this result as normal/abnormal . HGB (test code = 14.9 g/dL 11.6-15 718-7) HCT (test code = 44.4 % 35.7-45.2 4544-3) MCV (test code = 81.0 fL 80.6-95.5 787-2) MCH (test code = 27.2 pg 25.9-32.8 785-6) MCHC (test code = 33.6 g/dL 31.6-35.1 786-4) RDW-SD (test code = 39.8 fL 39-49.9 51464-6) RDW-CV (test code = 13.6 % 12-15.5 788-0) PLT (test code = See_Comment [Automated 777-3) message] The sy stem which generated this result transmitted reference range : 166 - 358 10*3/ ?L. The reference r can was not used to interpret this result as normal/abnormal . MPV (test code = 12.2 fL 9.5-12.9 68663-1) NRBC/100 WBC (test See_Comment [Automat ed code = [id number]) message] The system which generated this result transmitted reference range : 0.0 - 10.0 /100 WBCs. The refer ence range was not u sed to interpret th is result as normal/abnormal . NRBC x10^3 (test code <0.01 See_Comment [Auto mated = [id number]) message] The s ystem which generated this result transmitted reference range : 10*3/?L. The reference range was not used to interpret this result as normal/abnormal . GRAN MAT (NEUT) % 68.0 % (test code = 770-8) IMM GRAN % (test code 0.40 % = 7388325417) LYMPH % (test code = 24.6 % 736-9) MONO % (test code = 5.6 % 5905-5) EOS % (test code = 1.0 % 713-8) BASO % (test code = 0.4 % 706-2) GRAN MAT x10^3(ANC) 5.57 10*3/uL 1.88-7.09 (test code = 0655699759) IMM GRAN x10^3 (test 0.03 10*3/uL 0-0.06 code = 7160286134) LYMPH x10^3 (test code 2.01 10*3/uL 1.32-3.29 = 731-0) MONO x10^3 (test code 0.46 10*3/uL 0.33-0.92 = 742-7) EOS x10^3 (test code = 0.08 10*3/uL 0.03-0.39 711-2) BASO x10^3 (test code 0.03 10*3/uL 0.01-0.07 = 704-7) Lab Interpretation Abnormal (test code = 09454-7) [facility] WITH [id number] 07:27:00 Test Item Value Reference Range Interpretation Comments WBC (test code = See_Comment [Automated 3390-2) message] The sy stem which generated this result transmitted reference range : 4.30 - 11.10 10*3/?L. The reference range was not used to interpret this result as normal/abnormal . RBC (test code = See_Comment H [Automated 289-8) message] The sy stem which generated this result transmitted reference range : 3.93 - 5.25 10*6/?L. The reference range was not used to interpret this result as normal/abnormal . HGB (test code = 15.3 g/dL 11.6-15 H 718-7) HCT (test code = 45.5 % 35.7-45.2 H 4544-3) MCV (test code = 80.8 fL 80.6-95.5 787-2) MCH (test code = 27.2 pg 25.9-32.8 785-6) MCHC (test code = 33.6 g/dL 31.6-35.1 786-4) RDW-SD (test code = 35.8 fL 39-49.9 L 32890-9) RDW-CV (test code = 12.4 % 12-15.5 788-0) PLT (test code = See_Comment L [Automated 777-3) message] The sy stem which generated this result transmitted reference range : 166 - 358 10*3/ ?L. The reference r can was not used to interpret this result as normal/abnormal . MPV (test code = 12.5 fL 9.5-12.9 55178-9) NRBC/100 WBC (test See_Comment [Automat ed code = 1076717454) message] The system which generated this result transmitted reference range : 0.0 - 10.0 /100 WBCs. The refer ence range was not u sed to interpret th is result as normal/abnormal . NRBC x10^3 (test code <0.01 See_Comment [Auto mated = 8984100118) message] The s ystem which generated this result transmitted reference range : 10*3/?L. The reference range was not used to interpret this result as normal/abnormal . GRAN MAT (NEUT) % 58.2 % (test code = 770-8) IMM GRAN % (test code 0.40 % = 3826803672) LYMPH % (test code = 34.1 % 736-9) MONO % (test code = 6.3 % 5905-5) EOS % (test code = 0.4 % 713-8) BASO % (test code = 0.6 % 706-2) GRAN MAT x10^3(ANC) 2.87 10*3/uL 1.88-7.09 (test code = 1394145180) IMM GRAN x10^3 (test <0.03 0-0.06 code = 1780714091) LYMPH x10^3 (test code 1.68 10*3/uL 1.32-3.29 = 731-0) MONO x10^3 (test code 0.31 10*3/uL 0.33-0.92 L = 742-7) EOS x10^3 (test code = <0.03 0.03-0.39 L 711-2) BASO x10^3 (test code 0.03 10*3/uL 0.01-0.07 = 704-7) PLT ESTIMATE (test Decreased Normal A code = 9317-9) Lab Interpretation Abnormal (test code = 77650-6) [facility] Test Item Value Reference Range Interpretation Comments APPEARANCE (test code = Clear Clear 8146296906) COLOR (test code = Yellow Yellow 8227173642) PH (test code = 4.8-8.0 2471738633) SP GRAVITY (test code = 1.003-1.030 4038863933) GLU U QUAL (test code = 500 mg/dL Normal A 3298649400) BLOOD (test code = 1+ Negative A 6993608435) KETONES (test code = Negative Negative 4882010695) PROTEIN (test code = Negative Negative 2887-8) UROBILIN (test code = Normal Normal 7167846443) BILIRUBIN (test code = Negative Negative 1875927028) NITRITE (test code = Positive Negative A 2093239755) LEUK FRITZ (test code = Negative Negative 4368971485) RBC/HPF (test code = See_Comment [Autom ated message] 7442250656) The system [employer] generated this result transmit elias reference range : 0 - 3 HPF. The refe rence range was not u sed to interpret th is result as normal/abnormal . WBC/HPF (test code = See_Comment [Autom ated message] 7817974310) The system [employer] generated this result transmit elias reference range : 0 - 5 HPF. The refe rence range was not u sed to interpret th is result as normal/abnormal . BACTERIA (test code = Moderate Negative A 3491205833) MUCOUS (test code = Slight Negative LPF A 8170970485) SQ EPITH (test code = HPF 1700854033) Lab Interpretation (test Abnormal code = 77109-6) [facility] [id number] 06:19:00 Test Item Value Reference Range Interpretation Comments POCT PREG (test code = 1605) negative On board controls acceptable with positive C Line (test code = 3574) POCT PREG LOT # (test code = 3575) [id number] POCT PREG TEST DATE (test 05/31/2021 code = 3576) Lab Interpretation (test code = Normal 06819-9) [facility] COVID-19 [id number] 05:53:00 Test Item Value Reference Range Interpretation Comments SARS-CoV-2 (test code = Not Detected Not Detected 27463-7) FIDENCIO (test code = FIDENCIO) ID NOW COVID-19 Assay is an isothermal nucleic acid amplification test intended for the qualitative detection of nucleic acid from SARS-CoV-2 viral RNA in nasopharyngeal (HEAVY FORGING MACHINE OPERATOR) specimens. It is used under Emergency Use Authorization (EUA) by FDA. The limit of detection (LOD) of the assay is 125 Genome Equivalents/mL. A positive result is indicative of the presence of SARS-CoV-2 RNA. ?Clinical correlation with patient history and other diagnostic information is necessary to determine patient infection status. A negative (Not Detected) result does not preclude SARS-CoV-2 infection. Clinical correlation with patient history and other diagnostic information should be used in patient management decisions. Invalid: Please collect a new specimen for repeat patient testing if clinically indicated. Lab Interpretation Normal (test code = 86586-9) [facility]. METABOLIC PANEL (59164)2020-03-17 05:53:00 Test Item Value Reference Range Interpretation Comments NA (test code = 137 mmol/L 135-145 1299832500) K (test code = 3.8 mmol/L 3.5-5 3159807030) CL (test code = 99 mmol/L 98-108 4755623388) CO2 TOTAL (test code = 25 mmol/L 23-31 9041712582) AGAP (test code = 2-16 3385173419) BUN (test code = 13 mg/dL 7-23 7362303501) GLUCOSE (test code = 307 mg/dL 70-110 H 6458514319) CREATININE (test code = 0.79 mg/dL 0.5-1.04 0610350476) TOTAL BILI (test code = 1.0 mg/dL 0.1-1.3 6182754998) CALCIUM (test code = 9.6 mg/dL 8.6-10.6 3649180312) T PROTEIN (test code = 7.9 g/dL 6.3-8.2 0938262886) ALBUMIN (test code = 4.7 g/dL 3.5-5 9265203917) ALK PHOS (test code = 83 U/L 34-122 1020872043) ALTv (test code = 51 U/L 5-35 H 1742-6) AST(SGOT) (test code = 39 U/L 13-40 7555746350) eGFR Calculation mL/min/1.73m2 (Non-) (test code = 1920662838) eGFR Calculation mL/min/1.73m2 () (test code = 7685590225) FIDENCIO (test code = FIDENCIO) Association of Glomerular Filtration Rate (GFR) and Staging of Kidney Disease* + --+ --+ ------+| GFR (mL/min/1.73 m2) ?| With Kidney Damage ?| ?Without Kidney Damage+ --------+ --------+ +| ?>90 ?| ?Stage one ?| ? Normal ?+ ---+ ---+ -------+| ?60-89 ?| ?Stage two ?| ? Decreased GFR ? + --+ --+ ------+| ?30-59 ?| ?Stage three ?| ? Stage three ? + --+ --+ ------+| ?15-29 ?| ?Stage four ? | ? Stage four ?+ ---+ ---+ -------+| ?<15 (or dialysis) ? ?| ?Stage five ? | ? Stage five ?+ ---+ ---+ -------+ *Each stage assumes the associated GFR level has been in effect for at least three months. ?Stages 1 to 5, with or without kidney disease, indicate chronic kidney disease. Notes: Determination of stages one and two (with eGFR >59mL/min/1.73 m2) requires estimation of kidney damage for at least three months as defined by structural or functional abnormalities of the kidney, manifested by either:Pathological abnormalities or Markers of kidney damage (including abnormalities in the composition of the blood or urine or abnormalities in imaging tests). Lab Interpretation Abnormal (test code = 74930-2) [facility] Irving[facility] Acid Whole [id number] 05:29:00 Test Item Value Reference Range Interpretation Comments LACTIC ACID (test code = 1.72 mmol/L 0.3-2.6 7961632051) [facility] or plasma alanine aminotransferase measurement (enzymatic activity/volume)2020-01-06 01:45:00 Test Item Value Reference Range Interpretation Comments Alanine Aminotransferase (ALT/SGPT) 25 U/L 0-55 (test code = 1742-6) [facility] plasma protein measurement (mass/volume)2020-01-06 01:45:00 Test Item Value Reference Range Interpretation Comments Total Protein (test code = 2885-2) 7.1 g/dL 6.4-8.3 [facility] or plasma albumin measurement (mass/volume)2020-01-06 01:45:00 Test Item Value Reference Range Interpretation Comments Albumin (test code = 1751-7) 4.2 g/dL 3.5-5.0 [facility] or plasma alkaline phosphatase measurement (enzymatic activity/volume)2020-01-06 01:45:00 Test Item Value Reference Range Interpretation Comments Alkaline Phosphatase (test code = 62 U/L 40-150 6768-6) [facility] Health[facility] blood leukocyte count (number/volume)2020-01-06 01:45:00 Test Item Value Reference Range Interpretation Comments White Blood Count (test code = 15.3 10*3/uL 4.5-11.5 6690-2) [facility] (number/volume)2020-01-06 01:45:00 Test Item Value Reference Range Interpretation Comments Red Blood Count (test code = 5.34 10*6/uL 3.8-5.1 789-8) [facility] hemoglobin measurement (mass/volume)2020-01-06 01:45:00 Test Item Value Reference Range Interpretation Comments Hemoglobin (test code = 718-7) 14.5 g/dL 12.0-15.2 [facility] HealthAutomated blood hematocrit (volume fraction)2020-01-06 01:45:00 Test Item Value Reference Range Interpretation Comments Hematocrit (test code = 4544-3) 44.2 % 34.0-45.5 [facility] HealthAutomated erythrocyte mean corpuscular volume (MCV) measurement 2020-01-06 01:45:00 Test Item Value Reference Range Interpretation Comments Mean Corpuscular Volume (test code = 83 fL 80-94 787-2) [facility]Automated erythrocyte mean corpuscular hemoglobin (mass per erythrocyte)2020-01-06 01:45:00 Test Item Value Reference Range Interpretation Comments Mean Corpuscular Hemoglobin (test 27.2 pg 27.0-33.0 code = 785-6) [facility]Automated erythrocyte mean corpuscular hemoglobin concentration measurement (mass/snr7948-07-68 01:45:00 Test Item Value Reference Range Interpretation Comments Mean Corpuscular Hemoglobin Concent 32.8 g/dL 33.0-37.0 (test code = 786-4) [facility]Automated erythrocyte distribution width [id number] 01:45:00 Test Item Value Reference Range Interpretation Comments Red Cell Distribution Width (test code 12.3 % 10.7-14.5 = 788-0) [facility]Autom[facility] blood platelet count (count/volume)2020-01-06 01:45:00 Test Item Value Reference Range Interpretation Comments Platelet Count (test code = 194 10*3/uL 150-450 777-3) [facility]Automated blood platelet mean volume [id number] 01:45:00 Test Item Value Reference Range Interpretation Comments Mean Platelet Volume (test code = 12.4 5.7-10.7 83553-8) [facility] comment [id number] 01:45:00 Test Item Value Reference Range Interpretation Comments Manual Differential (test code = ----- 8265-1) [facility] HealthManual blood segmented neutrophils/100 jefbzalkkz7443-60-72 01:45:00 Test Item Value Reference Range Interpretation Comments Neutrophils % (Manual) (test code = 83 % 42-75 769-0) [facility] blood band neutrophils form/100 mhlezvowhg2551-09-99 01:45:00 Test Item Value Reference Range Interpretation Comments Band Neutrophils % (Manual) (test code 8 % 5-11 = 764-1) [facility] blood lymphocytes/100 jiuykqvotr2016-01-68 01:45:00 Test Item Value Reference Range Interpretation Comments Lymphocytes % (Manual) (test code = 8 % 21-51 737-7) [facility] blood monocytes/100 ceqxjedwdp9824-16-04 01:45:00 Test Item Value Reference Range Interpretation Comments Monocytes % (Manual) (test code = 1 % 1-9 744-3) [facility] HealthBlood platelet detection by light ftuurhusps6830-92-34 01:45:00 Test Item Value Reference Range Interpretation Comments Platelet Estimate (test code = Adequate 9317-9) [facility]Blood erythrocyte morphology finding aaeeenhzrecicc0168-62-24 01:45:00 Test Item Value Reference Range Interpretation Comments Red Blood Cell Morphology (test code = Normal 6742-1) [facility] or plasma sodium measurement (moles/volume)2020-01-06 01:45:00 Test Item Value Reference Range Interpretation Comments Sodium Level (test code = 2951-2) 139 mmol/L 136-145 [facility] or plasma potassium measurement (moles/volume)2020-01-06 01:45:00 Test Item Value Reference Range Interpretation Comments Potassium Level (test code = 4.3 mmol/L 3.5-5.1 2823-3) [facility] or plasma chloride measurement (moles/volume)2020-01-06 01:45:00 Test Item Value Reference Range Interpretation Comments Chloride Level (test code = 105 mmol/L 98-107 5-0) [facility] or plasma total carbon dioxide measurement (moles/volume) 2020-01-06 01:45:00 Test Item Value Reference Range Interpretation Comments Carbon Dioxide Level (test code = 26 mmol/L 2027-9) [facility] or plasma anion gap determination (moles/volume)2020-01-06 01:45:00 Test Item Value Reference Range Interpretation Comments Anion Gap (test code = 52999-7) 12 8-18 [facility] or plasma urea nitrogen measurement (mass/volume)2020-01-06 01:45:00 Test Item Value Reference Range Interpretation Comments Blood Urea Nitrogen (test code = 13 mg/dL 7-19 3094-0) [facility] or plasma creatinine measurement (mass/volume)2020-01-06 01:45:00 Test Item Value Reference Range Interpretation Comments Creatinine (test code = 2160-0) 0.9 mg/dL 0.6-1.1 [facility] HealthGFR estimate [id number] 01:45:00 Test Item Value Reference Range Interpretation Comments Estimat Glomerular Filtration Rate 80 90-142 (test code = 78650-6) [facility] or plasma glucose measurement (mass/volume)2020-01-06 01:45:00 Test Item Value Reference Range Interpretation Comments Glucose Level (test code = 2345-7) 287 mg/dL 60-100 [facility] or plasma calcium measurement (mass/volume)2020-01-06 01:45:00 Test Item Value Reference Range Interpretation Comments Calcium Level (test code = 59929-6) 8.8 mg/dL 8.4-10.2 [facility] or plasma total bilirubin measurement (mass/volume) 2020-01-06 01:45:00 Test Item Value Reference Range Interpretation Comments Total Bilirubin (test code = 0.4 mg/dL 0.2-1.2 1975-2) [facility] HealthSerum or plasma aspartate aminotransferase measurement (enzymatic activity/volume)2020-01-06 01:45:00 Test Item Value Reference Range Interpretation Comments Aspartate Amino Transf (AST/SGOT) 18 U/L 5-34 (test code = 1920-8) [facility] HealthAutomated blood leukocyte count (number/volume)2020-01-06 01:45:00 Test Item Value Reference Range Interpretation Comments White Blood Count (test code = 15.3 10*3/uL 6690-2) [facility] erythrocytes automated count (number/volume) 2020-01-06 01:45:00 Test Item Value Reference Range Interpretation Comments Red Blood Count (test code = 5.34 10*6/uL 789-8) [facility] hemoglobin measurement (mass/volume)2020-01-06 01:45:00 Test Item Value Reference Range Interpretation Comments Hemoglobin (test code = 718-7) 14.5 g/dL [facility] blood hematocrit (volume fraction)2020-01-06 01:45:00 Test Item Value Reference Range Interpretation Comments Hematocrit (test code = 4544-3) 44.2 % [facility] ElizabethAutom[facility] erythrocyte mean corpuscular volume (MCV) ciwgicwapng7927-19-85 01:45:00 Test Item Value Reference Range Interpretation Comments Mean Corpuscular Volume (test code = 83 fL 787-2) [facility] ElizabethAutom[facility] erythrocyte mean corpuscular hemoglobin (mass per erythrocyte)2020-01-06 01:45:00 Test Item Value Reference Range Interpretation Comments Mean Corpuscular Hemoglobin (test 27.2 pg code = 785-6) [facility] ElizabethAutom[facility] erythrocyte mean corpuscular hemoglobin concentration measurement (mass/sfl8655-37-08 01:45:00 Test Item Value Reference Range Interpretation Comments Mean Corpuscular Hemoglobin Concent 32.8 g/dL (test code = 786-4) [facility] ElizabethAutomated erythrocyte distribution width vmqti1058-50-63 01:45:00 Test Item Value Reference Range Interpretation Comments Red Cell Distribution Width (test code 12.3 % = 788-0) [facility] El[facility]abeAutomated blood platelet count (count/volume)2020-01-06 01:45:00 Test Item Value Reference Range Interpretation Comments Platelet Count (test code = 194 10*3/uL 777-3) [facility]Autom[facility] blood platelet mean volume zbjborxtyge1862-83-94 01:45:00 Test Item Value Reference Range Interpretation Comments Mean Platelet Volume (test code = 12.4 36786-0) [facility] comment [id number] 01:45:00 Test Item Value Reference Range Interpretation Comments Manual Differential (test code = ----- 8265-1) [facility] blood segmented neutrophils/100 leukocytes 2020-01-06 01:45:00 Test Item Value Reference Range Interpretation Comments Neutrophils % (Manual) (test code = 83 % 769-0) [facility] blood band neutrophils form/100 leukocytes 2020-01-06 01:45:00 Test Item Value Reference Range Interpretation Comments Band Neutrophils % (Manual) (test code 8 % = 764-1) [facility]Man[facility] blood lymphocytes/100 xrfkmflbhk8175-71-70 01:45:00 Test Item Value Reference Range Interpretation Comments Lymphocytes % (Manual) (test code = 8 % 737-7) [facility] [place] monocytes/100 sevazorqdq2340-75-88 01:45:00 Test Item Value Reference Range Interpretation Comments Monocytes % (Manual) (test code = 1 % 744-3) [facility] [place]. Calli platelet detection by light pvozpvdtbj6994-07-83 01:45:00 Test Item Value Reference Range Interpretation Comments Platelet Estimate (test code = Adequate 9317-9) [facility] KerriBlmaira erythrocyte morphology finding identification 2020-01-06 01:45:00 Test Item Value Reference Range Interpretation Comments Red Blood Cell Morphology (test code = Normal 6742-1) [facility]abethSer[facility] or plasma sodium measurement (moles/volume) 2020-01-06 01:45:00 Test Item Value Reference Range Interpretation Comments Sodium Level (test code = 2951-2) 139 mmol/L [facility] or plasma potassium measurement (moles/volume) 2020-01-06 01:45:00 Test Item Value Reference Range Interpretation Comments Potassium Level (test code = 4.3 mmol/L 2823-3) [facility] or plasma chloride measurement (moles/volume) 2020-01-06 01:45:00 Test Item Value Reference Range Interpretation Comments Chloride Level (test code = 105 mmol/L 5-0) [facility] or plasma total carbon dioxide measurement (moles/volume)2020-01-06 01:45:00 Test Item Value Reference Range Interpretation Comments Carbon Dioxide Level (test code = 26 mmol/L 2027-9) [facility] or plasma anion gap determination (moles/volume) 2020-01-06 01:45:00 Test Item Value Reference Range Interpretation Comments Anion Gap (test code = 65561-6) [address] ElizabethSerum or plasma urea nitrogen measurement (mass/volume) 2020-01-06 01:45:00 Test Item Value Reference Range Interpretation Comments Blood Urea Nitrogen (test code = 13 mg/dL 3094-0) [facility] or plasma creatinine measurement (mass/volume) 2020-01-06 01:45:00 Test Item Value Reference Range Interpretation Comments Creatinine (test code = 2160-0) 0.9 mg/dL [facility] St[facility] bethGFR estimate [id number] 01:45:00 Test Item Value Reference Range Interpretation Comments Estimat Glomerular Filtration Rate 80 (test code = 69636-6) [facility] ElibethSerum or plasma glucose measurement (mass/volume) 2020-01-06 01:45:00 Test Item Value Reference Range Interpretation Comments Glucose Level (test code = 2345-7) 287 mg/dL [facility] ElibethSerum or plasma calcium measurement (mass/volume) 2020-01-06 01:45:00 Test Item Value Reference Range Interpretation Comments Calcium Level (test code = 31879-8) 8.8 mg/dL [facility] or plasma total bilirubin measurement (mass/volume) 2020-01-06 01:45:00 Test Item Value Reference Range Interpretation Comments Total Bilirubin (test code = 0.4 mg/dL 1974-2) [facility]erum or plasma aspartate aminotransferase measurement (enzymatic activity/volume)2020-01-06 01:45:00 Test Item Value Reference Range Interpretation Comments Aspartate Amino Transf (AST/SGOT) 18 U/L (test code = 1920-8) [facility] or plasma alanine aminotransferase measurement (enzymatic activity/volume)2020-01-06 01:45:00 Test Item Value Reference Range Interpretation Comments Alanine Aminotransferase (ALT/SGPT) 25 U/L (test code = 1742-6) [facility]erum or plasma protein measurement (mass/volume) 2020-01-06 01:45:00 Test Item Value Reference Range Interpretation Comments Total Protein (test code = 2885-2) 7.1 g/dL [facility] albumin measurement (mass/volume) 2020-01-06 01:45:00 Test Item Value Reference Range Interpretation Comments Albumin (test code = 1751-7) 4.2 g/dL [facility] Hospitalerum or plasma alkaline phosphatase measurement (enzymatic activity/volume)2020-01-06 01:45:00 Test Item Value Reference Range Interpretation Comments Alkaline Phosphatase (test code = 62 U/L 6768-6) [facility]. RichardsonURINALYSIS WITH [id number] 20:58:00 Test Item Value Reference Range Interpretation Comments Color (test code = UCOLR) Lt. Yellow Clarity (test code = UCLAR) CLEAR Glucose (test code = UGLUC) >=1000 NEGATIVE A Bilirubin (test code = UBILI) NEGATIVE NEGATIVE N Ketones (test code = UKET) NEGATIVE NEGATIVE N Specific [place] (test code = 1.010 1.005-1.030 A USPGR) Blood (test code = UBLD) LARGE NEGATIVE A PH (test code = UPH) 5.0 4.5-8.0 A Protein (test code = UPROT) NEGATIVE NEGATIVE N Urobilinogen (test code = U UROB) 0.2 >0.2 N Nitrite (test code = UNITR) NEGATIVE NEGATIVE N Leukocyte Esterase (test code = TRACE NEGATIVE A ULEUK) WBC (test code = WBCUR) 5-10 0-5 A RBC (test code = RBCUR) 0-2 0-5 A Epithial Cells (test code = U EPI) 40-50 0-10 A Mucous (test code = UMUC) Trace None Seen A Bacteria (test code = UBACT) 2+ None Seen,Trace A TEST, Serum [id number] 20:28:00 Test Item Value Reference Range Interpretation Comments (Serum) (test code = Negative Negative N PREGS) ACETONE, [id number] 20:27:00 Test Item Value Reference Range Interpretation Comments Acetone Serum (test code = ACETO) Negative Acetone Titer (test code = ACETIT) n/a [id number] 20:22:00 Test Item Value Reference Range Interpretation Comments Glucose (test code 373 mg/dl 75-110 H = GLU) BUN (test code = 11.0 mg/dl 6.0-17.0 BUN) Creatinine (test 0.7 mg/dl 0.4-1.2 code = CREA) Sodium (test code = 143 mmol/l 137-145 NA) Potassium (test 4.3 mmol/l 3.5-5.0 code = K) Chloride (test code 101 mmol/l 98-107 = CL) CO2 (test code = 26 mmol/l 22-30 CO2) Calcium (test code 9.3 mg/dl 8.4-10.2 = CALC) T Protein (test 7.1 gm/dl 5.1-8.7 code = TP) Albumin (test code 4.1 gm/dl 3.5-4.6 = ALB) A/G Ratio (test 1.4 % 1.1-2.2 code = AGRAT) AST (SGOT) (test 47 U/L 11-36 H code = AST) ALT (SGPT) (test 68 U/L 11-40 H code = ALT) Alkaline Phos (test 71 U/L 47-114 code = ALKP) Total Bilirubin 0.3 mg/dl 0.2-1.2 (test code = TBIL) Globulin (test code 3.0 gm/dl 2.3-3.5 = GLOBU) Anion Gap (test 16 code = GAP) Calcium, Corrected 9.2 mg/dl 8.4-10.2 Various f ormulas exist (test code = for corrected s barrington CALCCORR) calcium results , each yielding differ ent values. This corrected resul t was based on the fo rmula: Corrected Calci um = SerumCalcium + [0.8 * ( 4 - SerumAlbu min)] EGFR if >60 [place] (test code mL/min/1.73m\\ = EGFRAA) S\\2 EGFR if Non- >60 Estimate d Glomerular [place] (test code mL/min/1.73m\\ Filtrat ion Rate (eGFR) = EGFRNA) S\\2 Reference Inter vals Decision Points for 18 years and older and average body ma ss: >= 60 Does not exc lude kidney disease. 30 - 59 Suggests modera te chronic kidney disease and indicat es the need for furthe r investigation including asses sment of proteinuria and cardiovascular factors. < 30 Usually in dicates a need for refe rral for assessment and management of c hronic kidney failure. CBC WITH AUTO [id number] 19:53:00 Test Item Value Reference Range Interpretation Comments WBC (test code = WBC) 10.2 k/ul 4.8-10.8 RBC (test code = RBC) 5.41 Millions/ul 4.20-5.40 H Hemoglobin (test code = HGB) 13.9 gm/dl 12.0-14.0 Hematocrit (test code = HCT) 42.7 % 37.0-47.0 MCV (test code = MCV) 78.9 fL 81.0-99.0 L MCH (test code = MCH) 25.8 pg 27.0-31.0 L MCHC (test code = MCHC) 32.7 gm/dl 33.0-37.0 L RDW (test code = RDWVC) 14.0 % 11.5-14.5 Platelet (test code = PLT) 196 k/ul 130-400 MPV (test code = MPV) 11.3 fL 7.4-10.4 H NE% (test code = NE) 75.9 % 42.0-75.0 H LY% (test code = LY) 18.1 % 13.0-42.0 MO% (test code = MO) 4.2 % 4.0-14.0 EO% (test code = EO) 1.3 % 1.0-3.0 BA% (test code = BA) 0.5 % 1.0-3.0 L NRBC, Auto (test code = 0 /100WBC 0-0 NRBC_AUTO)
[2021-11-08] MEDS ORDERED: NA CHLORIDE 0.9% 1,000 ML ONE ×3 (15:42→19:22)
[2021-11-08 16:10] LABS: Absolute Lymphocytes (CBC) 0.3 K/uL (0.7-4.9); Hematocrit 44.5 % (36.0-45.0); Lymphocytes % 2.2 % (15.3-44.8); MPV 10.6 fL (7.6-11.3); RBC Red Blood Cell Count 5.51 M/uL (3.86-4.86)
[2021-11-08 16:31] LABS: Albumin 2.7 g/dL (3.4-5.0); Bilirubin Direct 0.2 mg/dL (0-0.2); Bilirubin Total 0.6 mg/dL (0.2-1.0); Potassium 3.8 mmol/L (3.5-5.1)
[2021-11-08] MEDS ORDERED: ONDANSETRON 4 MG/2 ML VIAL ONE ×2 (16:50→19:21)
[2021-11-08] MEDS ORDERED: PROMETHAZINE INJ 25 MG/ML AMP ONE (16:50)
[2021-11-08] MEDS ORDERED: FAMOTIDINE 20 MG/2 ML VIAL IV ONE (16:51)
[2021-11-08 17:12] LABS: Blood Morphology Comment NOT SEEN (NOT SEEN); Platelet Estimate DECR
[2021-11-08 17:14] LABS: Urine Blood 3+ (Negative); Urine Glucose 2+ (Negative); Urine Protein 1+ (Negative); Urine Specific Gravity <=1.005 (1.005-1.030); Urine pH 5.5 (5.0-7.0)
[2021-11-08] MEDS ORDERED: DIPHENHYDRAMINE 50 MG/ML VIAL ONE (17:18)
[2021-11-08] MEDS ORDERED: METHYLPREDNISOLONE 125 MG INJ ONE (17:18)
[2021-11-08 17:29] LABS: Urine Bacteria >50 /HPF (<20); Urine RBC <5 /HPF (NONE SEEN)
--- NOTE | 2021-11-08 18:44 | RAD REPORT ---
EXAM DESCRIPTION: CTAbdomen Pelvis W Contrast - 11/08/2021 6:28 pm CLINICAL HISTORY: Abdominal pain. ABD PAIN COMPARISON: No comparisons TECHNIQUE: Biphasic CT imaging of the abdomen and pelvis was performed with 100 ml non-ionic IV cont rast. All CT scans are performed using dose optimization technique as appropriate and may include automated exposure control or mA/KV adjustment according to patient size. FINDINGS: Linear opacities and ground-glass nodules are seen in both posterior lung bases likely rel ated to infection.Some of these nodules demonstrate subtle internal cavitation which could indicate s eptic emboli. Prominent diffuse fatty liver is present. The spleen, pancreas, adrenal glands and kidneys are within normal limits. No bowel obstruction, free air, free fluid or abscess. The appendix is normal. Mildly prominent lym ph nodes are seen in both inguinal regions. No suspicious bony findings. IMPRESSION: Linear opacities and ground-glass areas of nodularity in both lung bases favored to be i nfectious in etiology. Septic emboli is a possibility. Diffuse fatty liver.
--- NOTE | 2021-11-08 19:01 | EDPHYS ---
Physician Documentation [facility] Name: Demetria Chamberlain Age: 31 yrs Sex: Female : 1990 Arrival Date: 11/08/2021 Time: 15:17 Bed 8 Private MD: ED Physician Winter Uribe HPI: 11/08 16:33 This 31 yrs old Female presents to ER via Wheelchair with complaints of Decreased ma2 Appetite, Vomiting. 16:33 The patient presents to the emergency department with nausea, vomiting. Onset: The ma2 symptoms/episode began/occurred gradually, 2 day(s) ago. Associated signs and symptoms: Pertinent negatives: belching, dysuria, GI bleeding, hematuria. Severity of symptoms: At their worst the symptoms were moderate in the emergency department the symptoms are unchanged. The patient has not experienced similar symptoms in the past. 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 Pneumococcal vaccine is up to date, Flu vaccine is not up to date. - Social history:: Smoking status: Patient denies any tobacco usage or history of. Patient/guardian denies using alcohol, street drugs, The patient lives with family. - Family history:: not pertinent. ROS: 16:33 Constitutional: Negative for fever, chills, and weight loss. ma2 16:33 All other systems are negative. Exam: 16:33 Constitutional: This is a well developed, well nourished patient who is awake, alert, ma2 and in no acute distress. Eyes: Pupils equal round and reactive to light, extra-ocular motions intact. Lids and lashes normal. Conjunctiva and sclera are non-icteric and not injected. Cornea within normal limits. Periorbital areas with no swelling, redness, or edema. ENT: Nares patent. No nasal discharge, no septal abnormalities noted. Tympanic membranes are normal and external auditory canals are clear. Oropharynx with no redness, swelling, or masses, exudates, or evidence of obstruction, uvula midline. Mucous membranes moist. Neck: Trachea midline, no thyromegaly or masses palpated, and no cervical lymphadenopathy. Supple, full range of motion without nuchal rigidity, or vertebral point tenderness. No Meningismus. Chest/axilla: Normal chest wall appearance and motion. Nontender with no deformity. No lesions are appreciated. Cardiovascular: Regular rate and rhythm with a normal S1 and S2. No gallops, murmurs, or rubs. Normal PMI, no JVD. No pulse deficits. Respiratory: Lungs have equal breath sounds bilaterally, clear to auscultation and percussion. No rales, rhonchi or wheezes noted. No increased work of breathing, no retractions or nasal flaring. Abdomen/GI: Soft, non-tender, with normal bowel sounds. No distension or tympany. No guarding or rebound. No evidence of tenderness throughout. Back: No spinal tenderness. No costovertebral tenderness. Full range of motion. Skin: Warm, dry with normal turgor. Normal color with no rashes, no lesions, and no evidence of cellulitis. MS/ Extremity: Pulses equal, no cyanosis. Neurovascular intact. Full, normal range of motion. Neuro: Awake and alert, GCS 15, oriented to person, place, time, and situation. Cranial nerves II-XII grossly intact. Motor strength 5/5 in all extremities. Sensory grossly intact. Cerebellar exam normal. Normal gait. Vital Signs: 15:25 BP 111 / 90; Pulse 135; Resp 20; Temp 99.1(TE); Pulse Ox 98% on R/A; Weight 81.65 kg jg9 (R); Height 5 ft. 5 in. (165.10 cm) (R); 16:23 BP 119 / 86; Pulse 122; Resp 19; Pulse Ox 97% on R/A; tw2 18:11 BP 126 / 83; Pulse 118; Resp 18; Pulse Ox 95% on R/A; tw2 19:34 BP 114 / 82; Pulse 110; Resp 18; Pulse Ox 97% on R/A; mk 20:48 BP 112 / 76; Pulse 111; Resp 18; Temp 98.8; Pulse Ox 95% on R/A; mk 15:25 Body Mass Index 29.95 (81.65 kg, 165.10 cm) jg9 Jaycee Coma Score: 19:34 Eye Response: spontaneous(4). Verbal Response: oriented(5). Motor Response: obeys mk commands(6). Total: 15. 20:48 Eye Response: spontaneous(4). Verbal Response: oriented(5). Motor Response: obeys mk commands(6). Total: 15. MDM: 15:38 Patient medically screened. ma2 16:33 Differential diagnosis: pancreatitis, diverticulitis, viral gastroenteritis. Data ma2 reviewed: vital signs, nurses notes. 18:59 Counseling: I had a detailed discussion with the patient and/or guardian regarding: the ma2 historical points, exam findings, and any diagnostic results supporting the discharge/admit diagnosis, the presence of at least one elevated blood pressure reading (>120/80) during this emergency department visit, the need for outpatient follow up. ED course: Patient has gastritis, and UTI, she will follow-up with GI, symptoms resolved. CT abdomen shows incidental finding of nodule on lungs, that may represent pneumonia or septic emboli, however patient does not have any risk factor for septic emboli, and does not have any respiratory symptoms at this time. She would like to go home I explained these incidental finding on CT, and I recommend follow-up with PCP in 1 day, for either a chest x-ray or follow-up CT. I explained return precaution strict return to ER for any respiratory symptoms. Or fever. He or any new symptoms. 11/08 15:37 Order name: Basic Metabolic Panel; Complete Time: 16:32 ma2 11/08 15:37 Order name: CBC with Diff; Complete Time: 17:43 ma2 11/08 15:37 Order name: Hepatic Function; Complete Time: 16:32 ma2 11/08 15:37 Order name: Lipase; Complete Time: 16:32 ma2 11/08 16:33 Order name: CT Abd/Pelvis - IV Contrast Only; Complete Time: 18:46 ma2 11/08 17:12 Order name: Manual Differential; Complete Time: 17:43 EDMS 11/08 17:13 Order name: Urine Dipstick-Ancillary; Complete Time: 17:43 EDMS 11/08 17:13 Order name: Urine Microscopic Only; Complete Time: 17:43 eb 11/08 17:15 Order name: Test, Serum: SG <1.005; Complete Time: 18:12 eb 11/08 17:30 Order name: Urine Culture EDMS 11/08 15:37 Order name: IV Saline Lock; Complete Time: 16:17 ma2 11/08 15:37 Order name: Labs collected and sent; Complete Time: 16:17 ma2 Administered Medications: 15:45 Drug: NS 0.9% 1000 ml Route: IV; Rate: 1 bolus; Site: right antecubital; tw2 17:05 Follow up: Response: No adverse reaction; IV Status: Completed infusion; IV Intake: tw2 1000ml 16:50 Drug: Zofran (Ondansetron) 4 mg Route: IVP; Site: right antecubital; tw2 17:31 Follow up: Response: No adverse reaction; Nausea is decreased tw2 16:52 Drug: Phenergan (promethazine) 25 mg Route: IVP; Site: right antecubital; tw2 17:30 Follow up: Response: No adverse reaction; Nausea is decreased tw2 16:55 Drug: Pepcid (famotidine) 20 mg Route: IVP; Site: right antecubital; tw2 17:31 Follow up: Response: No adverse reaction tw2 17:03 Drug: NS 0.9% 1000 ml Route: IV; Rate: 1 bolus; Site: right antecubital; tw2 18:11 Follow up: Response: No adverse reaction; IV Status: Completed infusion; IV Intake: tw2 1000ml 18:08 Drug: Benadryl (diphenhydrAMINE) 50 mg Route: IVP; Site: right antecubital; tw2 18:55 Follow up: Response: No adverse reaction tw2 18:11 Drug: MethylPrednisoLONE 125 mg Route: IVP; Site: right antecubital; tw2 18:55 Follow up: Response: No adverse reaction tw2 19:32 Drug: Rocephin (cefTRIAXone) 1 grams Route: IV; Rate: calculated rate; Site: right mk antecubital; 20:30 Follow up: Response: No adverse reaction 19:32 Drug: Zofran (Ondansetron) 4 mg Route: IVP; Site: right antecubital; 20:30 Follow up: Response: No adverse reaction mk 19:42 Drug: Reglan (metoCLOPramide) 10 mg Route: IVP; Site: right antecubital; 20:30 Follow up: Response: No adverse reaction 19:42 Drug: NS 0.9% 1000 ml Route: IV; Rate: 1 bolus; Site: right antecubital; mk 11/09 06:27 Follow up: Response: No adverse reaction; IV Status: Completed infusion 06:28 Follow up: IV Status: Completed infusion; IV Intake: 1000ml Disposition Summary: 11/08/21 19:01 Discharge Ordered Location: Home ma2 Condition: Stable ma2 Diagnosis - UTI/ Urinary tract infection, site not specified ma2 - Upper abdominal pain, unspecified ma2 Followup: ma2 - With: Private Physician - When: Tomorrow - Reason: Continuance of care Discharge Instructions: - Discharge Summary Sheet ma2 - Abdominal Pain, Adult ma2 - Dysuria ma2 - Urinary Tract Infection, Pediatric ma2 Forms: - Medication Reconciliation Form ma2 - Thank You Letter ma2 - Antibiotic Education ma2 - Prescription Opioid Use ma2 Prescriptions: - Zofran 4 mg Oral Tablet - take 1 tablet by ORAL route every 12 hours As needed; 20 tablet; Refills: 0, ma2 Product Selection Permitted - Bactrim DS 800-160 mg Oral Tablet - take 1 tablet by ORAL route every 12 hours for 5 days; 10 tablet; Refills: 0, ma2 Product Selection Permitted - Pepcid 20 mg Oral Tablet - take 1 tablet by ORAL route once daily; 20 tablet; Refills: 0, Product ma2 Selection Permitted - promethazine 25 mg Oral Tablet - take 1 tablet by ORAL route every 6 hours As needed; 20 tablet; Refills: 0, ma2 Product Selection Permitted Signatures: Dispatcher [employer] EDRadha Koo RN RN tw2 Winter Uribe MD MD ma2 Rashmi Sharif RN RN jgMaria Isabel Santamaria RN RN mk Corrections: (The following items were deleted from the chart) 11/08 15:57 15:39 SARS-COV-2 RT PCR ordered. EDSC EDMS
--- NOTE | 2021-11-08 19:01 | ER ---
Nurse's Notes [facility] Name: Demetria Chamberlain Age: 31 yrs Sex: Female : 1990 Arrival Date: 11/08/2021 Time: 15:17 Bed 8 Private MD: Diagnosis: UTI/ Urinary tract infection, site not specified;Upper abdominal pain, unspecified Presentation: 11/08 15:25 Chief complaint: Patient states: "I was in the hospital the other day for a tooth jg9 infection and I had to keep going back due to fevers" the last few days I have been unable to keep any food down and last night I vomited 30 times. I also think I have a bladder infection because it hurts a lot when I have to go pee. Coronavirus screen: Vaccine status: Patient reports being unvaccinated. Ebola Screen: Patient negative for fever greater than or equal to 101.5 degrees Fahrenheit, and additional compatible Ebola Virus Disease symptoms Patient denies exposure to infectious person. Patient denies travel to an Ebola-affected area in the 21 days before illness onset. Initial Sepsis Screen: Does the patient meet any 2 criteria? No. Patient's initial sepsis screen is negative. Does the patient have a suspected source of infection? No. Patient's initial sepsis screen is negative. Risk Assessment: Do you want to hurt yourself or someone else? Patient reports no desire to harm self or others. Onset of symptoms is unknown. 15:25 Method Of Arrival: Wheelchair jg9 15:25 Acuity: NIKUNJ 3 jg9 Triage Assessment: 15:28 General: Appears uncomfortable, Behavior is agitated. Pain: Complains of pain in jg9 abdomen. GI: Reports nausea, vomiting. 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 Pneumococcal vaccine is up to date, Flu vaccine is not up to date. - Social history:: Smoking status: Patient denies any tobacco usage or history of. Patient/guardian denies using alcohol, street drugs, The patient lives with family. - Family history:: not pertinent. Screenin:29 Abuse screen: Denies threats or abuse. Denies injuries from another. Nutritional jg9 screening: No deficits noted. Tuberculosis screening: No symptoms or risk factors identified. Fall Risk None identified. Assessment: 15:30 GI: Abdomen is flat, non-distended. jg9 18:12 Reassessment: Patient appears in no apparent distress at this time. Patient and/or tw2 family updated on plan of care and expected duration. Pain level reassessed. Patient is alert, oriented x 3, equal unlabored respirations, skin warm/dry/pink. 19:35 Reassessment: Patient and/or family updated on plan of care and expected duration. Pain mk level reassessed. Patient is alert, oriented x 3, equal unlabored respirations, skin warm/dry/pink. General: Appears uncomfortable. Neuro: Level of Consciousness is awake, alert, obeys commands, Oriented to person, place, time, situation. Neuro: Reports dizziness. Cardiovascular: Heart tones S1 S2 Capillary refill < 3 seconds fingers toes JVD is absent Patient's skin is warm and dry. Pulses are 2+ in right radial artery, right dorsalis pedis artery, left radial artery and left dorsalis pedis artery. Cardiovascular: Reports lightheadedness. Respiratory: Airway is patent Trachea midline Respiratory effort is even, unlabored, Respiratory pattern is regular, symmetrical, Breath sounds are clear. GI: Abdomen is flat, non-distended, Reports nausea, vomiting. : Denies burning with urination. Derm: Skin is intact, is healthy with good turgor, Skin is Skin temperature is warm. Musculoskeletal: Circulation, motion, and sensation intact. Capillary refill < 3 seconds, fingers. toes. Range of motion: intact in all extremities. 20:48 Reassessment: Patient and/or family updated on plan of care and expected duration. Pain mk level reassessed. Patient is alert, oriented x 3, equal unlabored respirations, skin warm/dry/pink. Vital Signs: 15:25 BP 111 / 90; Pulse 135; Resp 20; Temp 99.1(TE); Pulse Ox 98% on R/A; Weight 81.65 kg jg9 (R); Height 5 ft. 5 in. (165.10 cm) (R); 16:23 BP 119 / 86; Pulse 122; Resp 19; Pulse Ox 97% on R/A; tw2 18:11 BP 126 / 83; Pulse 118; Resp 18; Pulse Ox 95% on R/A; tw2 19:34 BP 114 / 82; Pulse 110; Resp 18; Pulse Ox 97% on R/A; mk 20:48 BP 112 / 76; Pulse 111; Resp 18; Temp 98.8; Pulse Ox 95% on R/A; mk 15:25 Body Mass Index 29.95 (81.65 kg, 165.10 cm) jg9 Christine Coma Score: 19:34 Eye Response: spontaneous(4). Verbal Response: oriented(5). Motor Response: obeys mk commands(6). Total: 15. 20:48 Eye Response: spontaneous(4). Verbal Response: oriented(5). Motor Response: obeys mk commands(6). Total: 15. ED Course: 15:17 Patient arrived in ED. as 15:28 Triage completed. jg9 15:30 Arm band placed on. jg9 15:30 Patient has correct armband on for positive identification. jg9 15:37 Winter Uribe MD is Attending Physician. ma2 15:37 Radha Green, RN is Primary Nurse. tw2 17:27 Test, Serum: SG <1.005 [address]. tw2 18:28 CT Abd/Pelvis - IV Contrast Only In Process Unspecified. EDMS 19:17 Primary Nurse role handed off by Radha Green, RN cs9 19:29 Maria Isabel Contreras, RN is Primary Nurse. mk 19:41 Awaiting: meds to finish infusion. mk 21:05 No provider procedures requiring assistance completed. IV discontinued, intact, mk bleeding controlled, No redness/swelling at site. Pressure dressing applied. Administered Medications: 15:45 Drug: NS 0.9% 1000 ml Route: IV; Rate: 1 bolus; Site: right antecubital; tw2 17:05 Follow up: Response: No adverse reaction; IV Status: Completed infusion; IV Intake: tw2 1000ml 16:50 Drug: Zofran (Ondansetron) 4 mg Route: IVP; Site: right antecubital; tw2 17:31 Follow up: Response: No adverse reaction; Nausea is decreased tw2 16:52 Drug: Phenergan (promethazine) 25 mg Route: IVP; Site: right antecubital; tw2 17:30 Follow up: Response: No adverse reaction; Nausea is decreased tw2 16:55 Drug: Pepcid (famotidine) 20 mg Route: IVP; Site: right antecubital; tw2 17:31 Follow up: Response: No adverse reaction tw2 17:03 Drug: NS 0.9% 1000 ml Route: IV; Rate: 1 bolus; Site: right antecubital; tw2 18:11 Follow up: Response: No adverse reaction; IV Status: Completed infusion; IV Intake: tw2 1000ml 18:08 Drug: Benadryl (diphenhydrAMINE) 50 mg Route: IVP; Site: right antecubital; tw2 18:55 Follow up: Response: No adverse reaction tw2 18:11 Drug: MethylPrednisoLONE 125 mg Route: IVP; Site: right antecubital; tw2 18:55 Follow up: Response: No adverse reaction tw2 19:32 Drug: Rocephin (cefTRIAXone) 1 grams Route: IV; Rate: calculated rate; Site: right mk antecubital; 20:30 Follow up: Response: No adverse reaction mk 19:32 Drug: Zofran (Ondansetron) 4 mg Route: IVP; Site: right antecubital; mk 20:30 Follow up: Response: No adverse reaction mk 19:42 Drug: Reglan (metoCLOPramide) 10 mg Route: IVP; Site: right antecubital; mk 20:30 Follow up: Response: No adverse reaction mk 19:42 Drug: NS 0.9% 1000 ml Route: IV; Rate: 1 bolus; Site: right antecubital; mk 11/09 06:27 Follow up: Response: No adverse reaction; IV Status: Completed infusion mk 06:28 Follow up: IV Status: Completed infusion; IV Intake: 1000ml mk Intake: 11/08 17:05 IV: 1000ml; Total: 1000ml. tw2 18:11 IV: 1000ml; Total: 2000ml. tw2 11/09 06:28 IV: 1000ml; Total: 3000ml. Outcome: 11/08 19:01 Discharge ordered by MD. torres 21:05 Discharged to home 21:05 Condition: stable 21:05 Discharge instructions given to patient, significant other. 21:06 Patient left the ED. Signatures: Dispatcher [employer] Flora Toussaint Tara, RN RN tw2 Winter Uribe MD MD ctSally Mascorro [place] Rashmi Sharif RN RN jg9 Maria Isabel Contreras RN RN Corrections: (The following items were deleted from the chart) 21:04 21:03 Reassessment: hussain 21:05 20:48 BP 112 / 76; Pulse 111bpm; Resp 18bpm; Pulse Ox 95% RA; hussain
[2021-11-08] MEDS ORDERED: METOCLOPRAMIDE 10 MG/2mL INJ ONE (19:21)
[2021-11-08] MEDS ORDERED: NA CHLORIDE 0.9% 100 ML ONE (19:22)
[2021-11-08] MEDS ORDERED: CEFTRIAXONE 1000 MG/VIAL ONE (19:22)
[2021-11-08 21:17] VITALS: BP 112/76; TEMP 98.8; O2SAT 95
== END 2021-11-08 21:06 | disposition home or self-care (01) ==
LOC: ER 15:15
DX: N39.0 Urinary tract infection, site not specified (principal); E11.9 Type 2 diabetes mellitus without complications; Z88.0 Allergy status to penicillin; Z88.5 Allergy status to narcotic agent; Z88.8 Allergy status to other drugs, medicaments and biological substances; Z91.048 Other nonmedicinal substance allergy status
CPT/HCPCS: 36415; 74177; 80048; 80076; 81003; 81015; 83690; 84703; 85025; 87077; 87086; 87088; 87186; 96361; 96374; 96375; 99284; J1200; J2405; J2550; J2765; J2930; J7030; Q9967

== ENCOUNTER 2021-11-10 08:40 | Emergency (ER) | payer SELFPAY ==
--- OUTSIDE RECORDS SUMMARY | 2021-11-10 08:56 | XMS REPORT | Continuity of Care Document ---
:1990 Author Organization [facility] t Address 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 THIEN Attending Clinician Unavailable Thien RICHTER Attending Clinician Marcie GRAHAM Attending Clinician Unavailable Gladys RICHTER T Attending Clinician Juan A GALLEGO Attending Clinician Seb RICHTER S Attending Clinician Reji GRIGSBY Attending Clinician Unavailable Chey GALLEGO, B Attending Clinician Delbert BLANKENSHIP, S Attending Clinician Reji MANDJUANO Attending Clinician Unavailable Ashley RAO, M Attending Clinician Unavailable Doctor Unassigned, Name Attending Clinician Unavailable Romain SAHNI Attending Clinician Unavailable Marcie GRAHAM Admitting Clinician Unavailable Reji GRIGSBY Admitting Clinician Unavailable Romain SAHNI Admitting Clinician Unavailable Advance Directives Directive Decision Effective Date Termination Date Comments Sour ce Yes N/A [facility] Condition Condition Condition Status Onset Resolution Last Treating Co mments Source Name Details Category Date Date Treatment Clinician Date Problem Condition [facility] Allergies, Adverse Reactions, Alerts Allergy Allergy Status Severity Reaction(s) Onset Inactive Treating Comm ents Source Name Type Date Date Clinician Loni Cody Active Rash 2019- Univers ty to 5-16 ity of adverse [...] 00:00: [place] reaction 00 Medical s Branch Morphine Allergy Active Unknown 2020-0 WILL U to 3-07 S substanc 00:00: Health e 00 Codeine Allergy Active Unknown 2020-0 [facility] to 3-07 S substanc 00:00: Health e 00 Penicill Allergy Active Unknown 2020-0 WILL U in to 3-07 S substanc 00:00: Health e 00 Iodine Allergy Active Unknown 2020-0 [facility] to 3-07 S substanc 00:00: Health e 00 Social History Social Habit Start Date Stop Date Quantity Comments Source Exposure to Not sure [facility] SARS-CoV-2 (event) Medica l Branch Sex Assigned At [birth year] Female [facility] 00:00:00 00:00:00 Smoking Status Start Date Stop Date Source Unknown if ever smoked [facility] Medical Branch Medications Ordered Filled Start Stop [...] Yenny 11/06/21 Branch at 0315, GEO ketorolac 2021- No 30mg 30 mg, Unive rs (TORADOL) 11-06 Slow IV ity of injection 09:15: 08:09 Push, [place] 30 mg 00 :00 ONCE, 1 Medical dose, On Branch Yenny 11/06/21 at 0315, Routine
member certification manager approving Restricted medication : JOHN NEUMANN NaCl 0.9% 2021- No 1000mL at 999 Uni vers (NS) bolus 11-06 mL/hr, ity of infusion 08:15: 09:33 1,000 mL, Alex as 1,000 mL 00 :00 IV Medical Infusion, Branch ONCE, 1 dose, On Yenny 11/06/21 at 0215, GEO ondansetron 0 Yes [id number] 4mg Take 1 Univers 4 mg 1-06 tablet by ity of disintegrat 00:00: mouth [place] ing tablet 00 every 4 Medica l (four) Branch hours as needed for Nausea and Vomiting (N/V). ibuprofen 2021-0 Yes [id number] 600mg Take 1 Univers 600 mg 1-06 tablet by ity of tablet 00:00: mouth [place] 00 every 6 Medical (six) Branch hours as needed for Pain (scale 4-6). benzonatate 2021-0 Yes [id number] 100mg Take 1 Univers 100 mg 1-06 [...] 10/31/21 at 1000, STAT proMETHazin 2020-11 Yes [id number] 25mg Take 1 Univers e 25 mg [...] Indication s: acute pain proMETHazin 2020-11 Yes [id number] 25mg Take 1 Univers e 25 mg [...] Indication s: acute pain erythromyci 2020-11- Yes [id number] 500mg Take 1 Univers n base 500 2-31 01-08 tablet by ity of mg tablet 00:00: 05:59 mouth [place] 00 :00 every 6 Medical (six) Branch hours for 7 days. erythromyci 2020-11- Yes [id number] 500mg Take 1 Univers n base 500 2-31 01-08 tablet by ity of mg tablet 00:00: 05:59 mouth [place] 00 :00 every 6 Medical (six) Branch hours for 7 days. insulin 2020- No 5U 5 Units, Unive rs regular 05-27 Slow IV ity of human 00:45: 23:57 Push, [place] (HUMULIN R) 00 :00 ONCE, 1 Medic al injection 5 dose, [facility] Units 05/26/21 at 1945, GEO diphenhydrA 2020- No 25mg 25 mg, Uni vers MINE 05-27 Intravenou ity of (BENADRYL) 00:00: 23:01 s, ONCE, 1 [place] injection 00 :00 dose, Mon Medic al 25 mg 05/26/21 at Branch 1900, GEO metoclopram 2020- No 10mg 10 mg, Uni vers jessica HCl 05-27 Slow IV ity of (REGLAN) 00:00: 23:01 Push, [place] injection 00 :00 ONCE, 1 Medical 10 mg dose, [facility] Branch 05/26/21 at 1900, GEO ketorolac 2020- No 15mg 15 mg, Unive rs (TORADOL) 05-27 Slow IV ity of injection 00:00: 23:01 Push, [place] 15 mg 00 :00 ONCE, 1 Medical dose, [facility] Branch 05/26/21 at 1900, Routine
member certification manager approving Restricted medication : DES GREEN NaCl 0.9% 2020- No 1000mL at 999 Uni vers (NS) bolus 05-27- mL/hr, ity of infusion 00:00: 23:59 1,000 mL, Alex as 1,000 mL 00 :00 IV Medical Infusion, Branch ONCE, 1 dose, [facility] 05/26/21 at 1900, STAT butalbital- 2020- No 1{tbl} 1 tablet, [facility] acetaminoph 05-26 Oral, ity of en-caff 23:00: 23:07 ONCE, 1 [place] (ESGIC) 00 :00 dose, [facility] Medical 50-325-40 05/26/21 at Bran ch mg tablet 1 1800, tablet Routine metFORMIN Yes [id number] 500mg Take 1 U nivers 500 mg 7-26 tablet by ity of tablet 00:00: mouth 2 [place] 00 (two) Medical times Branch daily. metFORMIN Yes [id number] 500mg Take 1 U nivers 500 mg 7-26 tablet by ity of tablet 00:00: mouth 2 [place] 00 (two) Medical times Branch daily. metFORMIN Yes [id number] 500mg Take 1 U nivers 500 mg 7-26 tablet by ity of tablet 00:00: mouth 2 [place] 00 (two) Medical times Branch daily. insulin 2019-11- No 5U 5 Units, Unive rs regular 12-13 Subcutaneo ity o f human 12:00: 11:00 , ONCE, [place] (HUMULIN R) 00 :00 1 dose, Medic al injection 5 [facility] Branch Units 10/12/20 at 0600, Routine ketorolac 2019-11- No 30mg 30 mg, Unive rs (TORADOL) 12-13 Slow IV ity of injection 10:45: 10:42 Push, [place] 30 mg 00 :00 ONCE, 1 Medical dose, Sat Branch 10/12/20 at 0445, GEO
Fa culty [...] Indication s: acute pain methocarbam 2019-11 Yes [id number] 500mg Take 1 Univers oL 2-12 tablet [...] Indication s: acute pain methocarbam 2019-11 Yes [id number] 500mg Take 1 Univers oL 2-12 tablet by ity of (ROBAXIN) 00:00: mouth [place] 500 mg 00 every 6 Medical tablet (six) Branch hours as needed (MUSCLE SPASM). methocarbam 2019-11 Yes [id number] 500mg Take 1 Univers oL 2-12 tablet by ity of (ROBAXIN) 00:00: mouth [place] 500 mg 00 every 6 Medical tablet (six) Branch hours as needed (MUSCLE SPASM). methocarbam 2019-11 Yes [id number] 500mg Take 1 Univers oL 2-12 tablet [...] Indication s: acute pain methocarbam 2019-11- No [id number] 500mg Take 1 Univers oL 2-12 12-12 tablet by ity of (ROBAXIN) 00:00: 00:00 mouth [place] 500 mg 00 :00 every 6 Medical tablet (six) Branch hours as needed (MUSCLE SPASM). maalox:diph 2019-11- No 15mL 15 mL, Uni vers enhydrAMINE 0-16 10-16 Oral, ity of :lidocaine 18:45: 17:44 ONCE, 1 Alex as 2 % viscous 00 :00 dose, Fri Med ical 1:1:1 08/16/20 Branch (FIRST-MOUT at 1345, HWASH BLM) Routine oral suspension 15 mL dexamethaso 2019-11- No 10mg 10 mg, Uni vers ne 0-16 10-16 Intramuscu ity of (DECADRON 18:45: 17:34 lar, ONCE, [place] PHOSPHATE) 00 :00 1 dose, Medica l injection Fri Branch 10 mg 08/16/20 at 1345, STAT albuterol 2019-11 Yes [id number] 2{puff} Inhale 2 Univers 90 0-16 Puffs ity of mcg/actuati 00:00: every 4 Alex as on inhaler 00 (four) Medical hours as Branch needed for Wheezing or Shortness of Breath. predniSONE 2019- Yes [id number] 60mg Take 3 U nivers 20 mg 0-16 tablets by ity of tablet 00:00: mouth [place] 00 every Medical morning. Branch benzonatate 2019- Yes [id number] 100mg Take 1 Univers 100 mg 0-16 capsule by ity of capsule 00:00: mouth 3 [place] 00 (three) Medical times Branch daily as needed for Cough. dextrometho 2019- Yes [id number] 10mL Take 10 mL Univers rphan-guaif 0-16 by mouth ity of enesin 00:00: every 6 [place] 10-100 mg/5 00 (six) Medical mL solution hours as Bran ch needed for Cough. albuterol 2019- Yes [id number] 2{puff} Inhale 2 Univers 90 0-16 Puffs ity of mcg/actuati 00:00: every 4 Alex as on inhaler 00 (four) Medical hours as Branch needed for Wheezing or Shortness of Breath. predniSONE 2019- Yes [id number] 60mg Take 3 U nivers 20 mg 0-16 tablets by ity of tablet 00:00: mouth [place] 00 every Medical morning. Branch benzonatate 2020- Yes [id number] 100mg Take 1 Univers 100 mg 0-16 capsule by ity of capsule 00:00: mouth 3 [place] 00 (three) Medical times Branch daily as needed for Cough. dextrometho 2020-1 Yes [id number] 10mL Take 10 mL Univers rphan-guaif 0-16 by mouth ity of enesin 00:00: every 6 [place] 10-100 mg/5 00 (six) Medical mL solution hours as Bran ch needed for Cough. albuterol 2019- Yes [id number] 2{puff} Inhale 2 Univers 90 0-16 Puffs ity of mcg/actuati 00:00: every 4 Alex as on inhaler 00 (four) Medical hours as Branch needed for Wheezing or Shortness of Breath. predniSONE 2019- Yes [id number] 60mg Take 3 U nivers 20 mg 0-16 tablets by ity of tablet 00:00: mouth [place] 00 every Medical morning. Branch benzonatate 2019- Yes [id number] 100mg Take 1 Univers 100 mg 0-16 capsule by ity of capsule 00:00: mouth 3 [place] 00 (three) Medical times Branch daily as needed for Cough. dextrometho 2019- Yes [id number] 10mL Take 10 mL Univers rphan-guaif 0-16 by mouth ity of enesin 00:00: every 6 [place] 10-100 mg/5 00 (six) Medical mL solution hours as Bran ch needed for Cough. albuterol 2019- Yes [id number] 2{puff} Inhale 2 Univers 90 0-16 Puffs ity of mcg/actuati 00:00: every 4 Alex as on inhaler 00 (four) Medical hours as Branch needed for Wheezing or Shortness of Breath. predniSONE 2020- Yes [id number] 60mg Take 3 U nivers 20 mg 0-16 tablets by ity of tablet 00:00: mouth [place] 00 every Medical morning. Branch benzonatate 2020- Yes [id number] 100mg Take 1 Univers 100 mg 0-16 capsule by ity of capsule 00:00: mouth 3 [place] 00 (three) Medical times Branch daily as needed for Cough. dextrometho 2020- Yes [id number] 10mL Take 10 mL Univers rphan-guaif 0-16 by mouth ity of enesin 00:00: every 6 [place] 10-100 mg/5 00 (six) Medical mL solution hours as Bran ch needed for Cough. albuterol 2019-11 Yes [id number] 2{puff} Inhale 2 Univers 90 0-16 Puffs ity of mcg/actuati 00:00: every 4 Alex as on inhaler 00 (four) Medical hours as Branch needed for Wheezing or Shortness of Breath. predniSONE 2019-11 Yes [id number] 60mg Take 3 U nivers 20 mg 0-16 tablets by ity of tablet 00:00: mouth [place] 00 every Medical morning. Branch benzonatate 2019-11 Yes [id number] 100mg Take 1 Univers 100 mg 0-16 capsule by ity of capsule 00:00: mouth 3 [place] 00 (three) Medical times Branch daily as needed for Cough. dextrometho 2019-11 Yes [id number] 10mL Take 10 mL Univers rphan-guaif 0-16 by mouth ity of enesin 00:00: every 6 [place] 10-100 mg/5 00 (six) Medical mL solution hours as Bran ch needed for Cough. tobramycin 2019-11- No [id number] 2[drp] Place 2 Univers 0.3 % 0-13 10-21 9104 Drops in ity of ophthalmic 00:00: 04:59 both eyes [place] drops 00 :00 4 (four) Medical times Branch daily for 7 days. Continue until you follow up with eye doctor. tobramycin 2019-11- No [id number] 2[drp] Place 2 Univers 0.3 % 0-13 10-21 9104 Drops in ity of ophthalmic 00:00: 04:59 [place] eyes [place] drops 00 :00 4 (four) Medical times Branch daily for 7 days. Continue until you follow up with eye doctor. tobramycin 2019-11- No [id number] 2[drp] Place 2 Univers 0.3 % 0-13 [...] Medical 08/01/20 at Branch 2245, STAT insulin 2019-11 2020- No 10U 10 Units, Univ ers regular 0-02 10-02 Slow IV ity of human 03:45: 02:51 Push, [place] (HUMULIN R) 00 :00 ONCE, 1 Medic al injection dose, Yenny Branc h 10 Units 08/01/20 at 2245, STAT NaCl 0.9% 2019-11 2020- No 1000mL at 999 Uni vers (NS) bolus 0-02 10-02 mL/hr, ity of infusion 03:45: 04:04 1,000 mL, Alex as 1,000 mL 00 :00 IV Medical Infusion, [place] ONCE, 1 dose, Yenny 08/01/20 at 2245, STAT NaCl 0.9% Yes 1000mL at 999 Univ ers (NS) IV 5-17 mL/hr, ity of infusion 07:30: Intravenou Alex as 1,000 mL 00 s, Medical CONTINUOUS Branch , Starting [place] 03/17/20 at 0230, Until Discontinu ed, Routine insulin 2019-0 2020- No 5U 5 Units, Unive rs regular 03-17 Subcutaneo ity o f human 07:30: 07:30 , ONCE, [place] (HUMULIN R) 00 :00 1 dose, Medic al injection 5 [facility] Units 03/17/20 at 0230, Routine diphenhydrA 2019- 2020- No 25mg 25 mg, Uni vers MINE 03-17 Slow IV ity of (BENADRYL) 07:30: 06:33 Push, [place] injection 00 :00 ONCE, 1 Medical 25 mg dose, [facility] 03/17/20 at 0230, STAT metoclopram 2019- 2020- No 10mg 10 mg, Uni vers jessica HCl 03-17 Slow IV ity of (REGLAN) 07:30: 06:33 Push, [place] injection 00 :00 ONCE, 1 Medical 10 mg dose, [facility] 03/17/20 at 0230, GEO NaCl 0.9% 2019-0 2020- No 500mL at 999 Univ ers (NS) bolus 03-17 05-17 mL/hr, 500 it y of infusion 06:15: 08:20 mL, IV [place] 500 mL 00 :00 Infusion, Medical ONCE, 1 Branch dose, [place] 03/17/20 at 0115, STAT clindamycin 2020-0 Yes [id number] 300mg Take 1 Univers 300 mg 5-17 capsule by ity of capsule 00:00: mouth 3 [place] 00 (three) Medical times Branch daily. butalbital- 2020-0 Yes [id number] 1{tbl} Take 1 Univers acetaminoph 5-17 tablet by ity of en-caff 00:00: mouth [place] 50-325-40 00 every 6 Medical mg tablet (six) Branch hours as needed (Headache) . clindamycin 2020-0 Yes [id number] 300mg Take 1 Univers 300 mg 5-17 capsule by ity of capsule 00:00: mouth 3 [place] 00 (three) Medical times Branch daily. butalbital- 2020-0 Yes [id number] 1{tbl} Take 1 Univers acetaminoph 5-17 tablet by ity of en-caff 00:00: mouth [place] 50-325-40 00 every 6 Medical mg tablet (six) Branch hours as needed (Headache) . clindamycin 2020-0 Yes [id number] 300mg Take 1 Univers 300 mg 5-17 capsule by ity of capsule 00:00: mouth 3 00 (three) Medical times Branch daily. butalbital- 2020-0 Yes [id number] 1{tbl} Take 1 Univers acetaminoph 5-17 tablet by ity of en-caff 00:00: mouth [place] 50-325-40 00 every 6 Medical mg tablet (six) Branch hours as needed (Headache) . clindamycin 2020-0 Yes [id number] 300mg Take 1 Univers 300 mg 5-17 capsule by ity of capsule 00:00: mouth 3 00 (three) Medical times Branch daily. butalbital- 2020-0 Yes [id number] 1{tbl} Take 1 Univers acetaminoph 5-17 tablet by ity of en-caff 00:00: mouth [place] 50-325-40 00 every 6 Medical mg tablet (six) Branch hours as needed (Headache) . clindamycin 2020-0 Yes [id number] 300mg Take 1 Univers 300 mg 5-17 capsule by ity of capsule 00:00: mouth 3 [place] 00 (three) Medical times Branch daily. butalbital- 2020-0 Yes [id number] 1{tbl} Take 1 Univers acetaminoph 5-17 tablet by ity of en-caff 00:00: mouth [place] 50-325-40 00 every 6 Medical mg tablet (six) Branch hours as needed (Headache) . clindamycin 2020-0 Yes [id number] 300mg Take 1 Univers 300 mg 5-17 capsule by ity of capsule 00:00: mouth 3 [place] 00 (three) Medical times Branch daily. butalbital- 2020-0 Yes [id number] 1{tbl} Take 1 Univers acetaminoph 5-17 tablet by ity of en-caff 00:00: mouth [place] 50-325-40 00 every 6 Medical mg tablet (six) Branch hours as needed (Headache) . clindamycin 2020-0 Yes [id number] 300mg Take 1 Univers 300 mg 5-17 capsule by ity of capsule 00:00: mouth 3 00 (three) Medical times Branch daily. butalbital- 2020-0 Yes [id number] 1{tbl} Take 1 Univers acetaminoph 5-17 tablet by ity of en-caff 00:00: mouth [place] 50-325-40 00 every 6 Medical mg tablet (six) Branch hours as needed (Headache) . clindamycin 2020-0 Yes [id number] 300mg Take 1 Univers 300 mg 5-17 capsule by ity of capsule 00:00: mouth 3 (three) Medical times Branch daily. butalbital- 2020-0 Yes [id number] 1{tbl} Take 1 Univers acetaminoph 5-17 tablet by ity of en-caff 00:00: mouth [place] 50-325-40 00 every 6 Medical mg tablet (six) Branch hours as needed (Headache) . clindamycin 2020-0 Yes [id number] 300mg Take 1 Univers 300 mg 5-17 capsule by ity of capsule 00:00: mouth 3 00 (three) Medical times Branch daily. butalbital- 2020-0 Yes [id number] 1{tbl} Take 1 Univers acetaminoph 5-17 tablet by ity of en-caff 00:00: mouth [place] 50-325-40 00 every 6 Medical mg tablet (six) Branch hours as needed (Headache) . clindamycin 2020-0 Yes [id number] 300mg Take 1 Univers 300 mg 5-17 capsule by ity of capsule 00:00: mouth 3 00 (three) Medical times Branch daily. butalbital- 2020-0 Yes [id number] 1{tbl} Take 1 Univers acetaminoph 5-17 tablet by ity of en-caff 00:00: mouth [place] 50-325-40 00 every 6 Medical mg tablet (six) Branch hours as needed (Headache) . Methocarbam 2020-0 No 750mg JEMMA TU ol 3-[address] (Robaxin) 01:24: Elizabe 750 Mg 00 th TABLET Ondansetron 2020-0 No 4mg WILL U Hcl [...] for Health Mg TAB 00 Moderate Pain(4-6) Vital Signs Vital Name Observation Time Observation Value Comments Source Body temperature 2021-11-06 10:36:00 37.67 Katelyn [facility] Respiratory rate 2021-11-06 10:36:00 16 /min [facility] Heart rate 2021-11-06 09:31:00 109 /min [facility] Oxygen saturation in 2021-11-06 09:31:00 94 /min [facility] Arterial blood by [facility] Pulse oximetry Branch Systolic blood 2021-11-06 08:00:00 123 mm[Hg] Tony welsh [facility] Diastolic blood 2021-11-06 08:00:00 80 mm[Hg] [facility] Body weight 2021-11-06 06:54:[address] [facility] BMI 2021-11-06 06:54:00 29.05 kg/m2 [facility] [place] [facility] Systolic blood 2021-10-31 17:00:00 118 mm[Hg] Univer sity of pressure [place] [facility] Diastolic blood 2021-10-31 17:00:00 77 mm[Hg] Unive rsity of pressure [place] [facility] Heart rate 2021-10-31 17:00:00 91 /min [facility] [place] [facility] Respiratory rate 2021-10-31 17:00:00 16 /min Univ ersity [facility] [place] [facility] Oxygen saturation in 2021-10-31 17:00:00 97 /min University of Arterial blood by [place] Navarik luis Pulse oximetry Branch Body temperature 2021-10-31 14:43:00 39 Katelyn [facility] [place] [facility] Body height 2021-10-31 14:43:00 167.6 cm [facility] [place] [facility] Body weight 2021-10-31 14:43:00 81.647 kg [facility] [place] [facility] BMI 2021-10-31 14:43:00 29.05 kg/m2 [facility] [place] [facility] Systolic blood 2021-05-26 23:57:00 123 mm[Hg] Univer sity of pressure [place] [facility] Diastolic blood 2021-05-26 23:57:00 88 mm[Hg] Unive rsity of pressure [place] [facility] Heart rate 2021-05-26 23:57:00 92 /min [facility] [place] [facility] Respiratory rate 2021-05-26 23:57:00 18 /min Univ ersity [facility] [place] [facility] Oxygen saturation in 2021-05-26 23:57:00 99 /min University of Arterial blood by [place] Medi luis Pulse oximetry Branch Body temperature 2021-05-26 22:18:00 37.22 Katelyn [facility] [place] [facility] Body height 2021-05-26 22:18:00 162.6 cm [facility] [place] [facility] Body weight 2021-05-26 22:18:00 81.647 kg [facility] [place] [facility] BMI 2021-05-26 22:18:00 30.90 kg/m2 [facility] [place] [facility] Systolic blood 2020-10-12 11:58:00 96 mm[Hg] Univer sity of pressure [place] [facility] Diastolic blood 2020-10-12 11:58:00 76 mm[Hg] Unive rsity of pressure [place] [facility] Heart rate 2020-10-12 11:58:00 122 /min [facility] [place] [facility] Body temperature 2020-10-12 11:58:00 36.33 Katelyn [facility] [place] [facility] Respiratory rate 2020-10-12 11:58:00 14 /min [facility] [place] [facility] Oxygen saturation in 2020-10-12 11:58:00 97 /min University of Arterial blood by [facility] luis Pulse oximetry Branch Body weight 2020-10-12 10:01:00 81.647 kg [facility] [place] [facility] BMI 2020-10-12 10:01:00 29.95 kg/m2 [facility] [place] [facility] Systolic blood 2020-08-16 18:00:00 124 mm[Hg] Univer sity of pressure [place] [facility] Diastolic blood 2020-08-16 18:00:00 91 mm[Hg] Unive rsity of pressure [place] [facility] Heart rate 2020-08-16 18:00:00 100 /min [facility] [place] [facility] Respiratory rate 2020-08-16 18:00:00 16 /min Univ ers[facility] [place] [facility] Oxygen saturation in 2020-08-16 18:00:00 97 /min University of Arterial blood by [facility] luis Pulse oximetry Branch Body temperature 2020-08-16 17:35:18 36.89 Katelyn [facility] [place] [facility] Body weight 2020-08-16 17:13:00 81.647 kg [facility] [place] [facility] BMI 2020-08-16 17:13:00 29.95 kg/m2 [facility] [place] [facility] Systolic blood 2020-08-13 15:20:00 155 mm[Hg] Univer sity of pressure [place] [facility] Diastolic blood 2020-08-13 15:20:00 99 mm[Hg] Unive rsity of pressure [place] [facility] Heart rate 2020-08-13 15:20:00 97 /min [facility] [place] [facility] Body temperature 2020-08-13 15:20:00 36.94 Katelyn [facility] [place] [facility] Respiratory rate 2020-08-13 15:20:00 20 /min [facility] [place] [facility] Body height 2020-08-13 15:20:00 165.1 cm [facility] [place] [facility] Body weight 2020-08-13 15:20:00 81.647 kg [facility] [place] [facility] BMI 2020-08-13 15:20:00 29.95 kg/m2 [facility] [place] [facility] Oxygen saturation in 2020-08-13 15:20:00 98 /min University of Arterial blood by [place] Medi luis Pulse oximetry Branch Heart rate 2020-08-02 03:50:00 99 /min [facility] [place] [facility] Respiratory rate 2020-08-02 03:50:00 12 /min [facility] [place] [facility] Oxygen saturation in 2020-08-02 03:50:00 98 /min University of Arterial blood by [facility] Pulse oximetry Branch Systolic blood 2020-08-02 03:20:00 117 mm[Hg] Univer sity of pressure [place] [facility] Diastolic blood 2020-08-02 03:20:00 84 mm[Hg] Unive rsity of pressure [place] [facility] Body temperature 2020-08-02 01:08:00 36.83 Katelyn [facility] [place] [facility] Body height 2020-08-02 01:08:00 165.1 cm [facility] [place] [facility] Body weight 2020-08-02 01:08:00 81.647 kg [facility] [place] [facility] BMI 2020-08-02 01:08:00 29.95 kg/m2 [facility] [place] [facility] Systolic blood 2020-03-17 08:00:00 111 mm[Hg] Univer sity of pressure [place] [facility] Diastolic blood 2020-03-17 08:00:00 88 mm[Hg] Unive rsity of pressure [place] [facility] Heart rate 2020-03-17 08:00:00 108 /min [facility] [place] [facility] Respiratory rate 2020-03-17 08:00:00 20 /min [facility] [place] [facility] Oxygen saturation in 2020-03-17 08:00:00 98 /min University of Arterial blood by [facility] Pulse oximetry Branch Body temperature 2020-03-17 04:46:00 38.89 Katelyn [facility] [place] [facility] Body height 2020-03-17 04:46:00 165.1 cm [facility] [place] [facility] Body weight 2020-03-17 04:46:00 83.915 kg [facility] [place] [facility] BMI 2020-03-17 04:46:00 30.79 kg/m2 Universi ty of [facility] Branch Respiratory rate 2020-01-06 05:42:00 18 /min [facility] BP Systolic 2020-01-06 05:42:00 118 mm[Hg] [facility] Body Temperature 2020-01-06 05:30:00 98.1 [degF] [facility] Heart Rate 2020-01-06 05:30:00 87 /min [facility] Respiratory rate 2020-01-06 05:30:00 18 /min [facility] BP Systolic 2020-01-06 05:30:00 118 mm[Hg] [facility] BP Diastolic 2020-01-06 05:30:00 72 mm[Hg] [facility] Weight 2020-01-06 00:20:00 185 [lb_av] [facility] BMI (Body Mass 2020-01-06 00:20:00 29.9 kg/m2 [facility] Health Index) Procedures Procedure Date / Time Performing Clinician Source Performed XR CHEST 1 VW 2021-11-06 08:28:00 John Neumann [facility] CT 2021-11-06 08:17:00 John Neumann [facility] MAXILLOFACIAL/MANDIBLE Medical [place] WO CONTRAST LACTIC ACID WHOLE BLOOD 2021-11-06 07:38:00 John Neumann [facility] POCT TEST 2021-11-06 07:28:[address] [facility] CREATINE KINASE 2021-11-06 07:25:00 John Neumann [facility] TROPONIN I 2021-11-06 07:25:00 John Neumann [facility] FREE T4 2021-11-06 07:25:00 John [facility] THYROID STIMULATING 2021-11-06 07:25:00 [facility] HORMONE [facility] COMP. METABOLIC PANEL 2021-11-06 07:25:00 John Neumann [facility] ([id number]) [facility] CBC WITH DIFF 2021-11-06 07:25:00 [facility] PROTHROMBIN TIME / INR 2021-11-06 07:25:00 [facility] ACTIVATED PARTIAL 2021-11-06 07:25:00 John Neumann [facility] THRMPLAS NATHANAEL [facility] URINALYSIS 2021-11-06 07:25:00 Thien [facility] N-TERMINAL PRO-BNP 2021-11-06 07:25:00 John Neumann [facility] URINE DRUG (IMMUNOASSAY) 2021-11-06 07:25:00 John Neumann [facility] COMPREHENSIVE [facility] Medical [facility] nch SCREEN W/O REFLEX CT HEAD WO CONTRAST 2021-10-31 15:58:54 Leo Graham [facility] XR CHEST 1 VW 2021-10-31 15:56:01 Leo Graham [facility] POCT TEST 2021-10-31 15:32:00 Leo Graham [facility] URINALYSIS 2021-10-31 15:31:00 Leo Graham [facility] COMP. METABOLIC PANEL 2021-10-31 14:59:00 Leo Graham [facility] ([id number]) [facility] CBC WITH DIFF 2021-10-31 14:59:00 Leo Graham [facility] RAPID STREP SCREEN FOR 2021-10-31 14:59:00 Leo Graham [facility] POCT GLUCOSE (AUTOMATED) 2021-05-26 23:56:00 Po Velazco [facility] POCT TEST 2021-05-26 23:07:[address] [facility] BASIC METABOLIC PANEL 2021-05-26 23:00:00 Po Velazco [facility] (NA, K, CL, CO2, [facility] [place] GLUCOSE, BUN, CREATININE, CA) CBC WITHOUT DIFF 2021-05-26 23:00:00 Po Velazco [facility] URINALYSIS 2021-05-26 23:00:00 Po Vel[facility] POCT GLUCOSE (AUTOMATED) 2021-05-26 22:21:00 Po Velazco [facility] NOTICE OF PRIVACY 2021-05-26 22:02:25 Doctor Unassigned, No [facility] PRACTICES Name Medical Branch CONSENT/REFUSAL FOR 2021-05-26 22:02:08 Doctor Unassigned, No [facility]REATMENT Name Medical Branch POCT GLUCOSE (AUTOMATED) 2020-10-12 11:44:00 Elmer Grigsby [facility] [place] CT TRAUMA HEAD WO 2020-10-12 10:41:03 Elmer Grigsby [facility] CONTRAST Medical Branch CT TRAUMA CERVICAL SPINE 2020-10-12 10:41:03 [facility] CONTRAST Medical Branch CT TRAUMA THORACIC SPINE 2020-10-12 10:41:03 [facility] CONTRAST Medical Branch CT TRAUMA LUMBAR SPINE 2020-10-12 10:41:03 Elmer Grigsby [facility] CONTRAST Medical Branch CT TRAUMA THORAX W 2020-10-12 10:39:48 Elmer Grigsby [facility] CONTRAST Medical Branch CT TRAUMA ABDOMEN PELVIS 2020-10-12 10:39:48 [facility] POCT TEST 2020-10-12 10:14:56 Elmer Grigsby [facility] [place] LIPASE 2020-10-12 10:06:00 Elmer Grigsby [facility] COMP. METABOLIC PANEL 2020-10-12 10:06:00 Elmer Grigsby [facility] ([id number]) Medical Branch CBC WITH DIFF 2020-10-12 10:06:00 Elmer Grigsby [facility] XR CHEST 1 VW 2020-08-16 17:58:44 Gomez Guerrier [facility] RAPID STREP SCREEN FOR 2020-08-16 17:29:00 Gomez Guerrier [facility] GROUP A Medical Branch POCT TEST 2020-08-16 17:28:00 Gomez Guerrier [facility] CONSENT/REFUSAL FOR 2020-08-16 16:58:51 Doctor Unassigned, No [facility] DIAGNOSIS AND TREATMENT Name Medical Branch CONSENT/REFUSAL FOR 2020-08-13 15:14:02 Doctor Unassigned, [facility] Name Medical Branch POCT GLUCOSE (AUTOMATED) 2020-08-02 03:32:00 Antwon Mandujano [facility] XR CHEST 1 VW 2020-08-02 02:45:18 Antwon Mandujano [facility] POCT GLUCOSE (AUTOMATED) 2020-08-02 02:33:00 Antwon Mandujano [facility] TROPONIN I 2020-08-02 02:05:00 Antwon Mandujano [facility] THYROID STIMULATING 2020-08-02 02:05:00 Antwon Mandujano [facility] HORMONE [facility] Branch COMP. METABOLIC PANEL 2020-08-02 02:05:00 Antwon Mandujano [facility] ([id number]) Medical Branch CBC WITH DIFF 2020-08-02 02:05:00 Antwon Mandujano [facility] EKG-12 LEAD 2020-08-02 01:43:37 Antwon Mandujano [facility] CONSENT/REFUSAL FOR 2020-08-02 01:01:53 Doctor Unassigned, No [facility] DIAGNOSIS AND TREATMENT Name [facility] URINALYSIS 2020-03-17 06:19:00 Elmer Grigsby [facility] POCT TEST 2020-03-17 06:19:00 Elmer Grigsby [facility] COMP. METABOLIC PANEL 2020-03-17 05:20:00 Elmer Grigsby [facility] ([id number]) [facility] CBC WITH DIFFERENTIAL 2020-03-17 05:20:00 Elmer Grigsby [facility] LACTIC ACID WHOLE BLOOD 2020-03-17 05:19:00 Elmer Grigsby [facility] CORONAVIRUS COVID-19 2020-03-17 05:17:00 Elmer Grigsby [facility] TESTING [facility] NOTICE OF PRIVACY 2020-03-17 04:41:30 Doctor Unassigned, No [facility] PRACTICES Name [facility] Branch CONSENT/REFUSAL FOR 2020-03-17 04:39:33 Doctor Unassigned, No Un i[facility]ity [facility] DIAGNOSIS AND TREATMENT Name [facility] [place] Computed tomography of 2020-01-06 00:00:00 [facility] head or brain without contrast Computed tomography of 2020-01-06 00:00:00 [facility] cervical spine without contrast Computed tomography of 2020-01-06 00:00:00 [facility] abdomen and pelvis with contrast Computed tomography of 2020-01-06 00:00:00 [facility] lungs with intravenous contrast Plan of Care Planned Activity Planned Date Details Comments Source Goal Patient referral [facility] [id number] ] Kerri Goal Patient referral [code = [facility] [id number] ] Kerri Goal Patient referral [code = [facility] [id number] ] Kerri Goal Patient referral [code = [facility] [id number] ] Kerri Goal Patient referral [code = [facility] [id number] ] Kerri Goal Patient referral [code = [facility] [id number] ] Kerri Instructions OTHER [facility] Concussion, Adult (DC) JEMMA [facility] Instructions Low Back Pain (DC) [facility] Nausea and Vomiting, Adult C [facility] (DC) [facility]ri Instructions Closed Head Injury (DC) [facility] Inst[facility] Diabetes Type 2 (DC) [facility] Instructions Postconcussion Syndrome [facility] (DC) Kerri Instructions Preventing Falls [facility] Kerri Instructions White Blood Cell Count [facility] Differential Test Kerri Encounters Start End Encounter Admission Attending Care Care Encounter Source Date/Time Date/Time Type Type Clinicians Facility Department ID 2020-01-06 Inpatient PAMELA SANTIAGO [id number] [facility] 00:19:00 [id number] [facility] 2021-11-06 2021-11-06 Emergency X THIEN [facility] ERT [id number] Univers 00:52:00 04:57:00 JOHN borges [facility] 2021-11-06 2021-11-06 Emergency Thien [facility] [id number] Univers 00:52:00 04:57:00 John PAYAN [id number] [facility] [id number] [facility] [id number] [address] 2021-10-31 2021-10-31 Emergency X GLADYS, [facility] ERT [id number] Univers 08:41:00 11:14:00 LEO ity [facility] 2021-10-31 2021-10-31 Emergency Gladys, [facility] [id number] Univers 08:41:00 11:14:00 Leo Marcie SCHUYLER [id number] ity of [place] 4.2.7.2.686 [facility] [id number] [address] 2021-05-26 2021-05-26 Emergency Juan [facility] [id number] Univers 17:23:00 19:27:00 Po Payan [id number] i ty of [place] 4.2.7.2.6 [facility] [id number] [address] 2021-05-26 2021-05-26 Emergency X [facility] ERT [id number] Univers 17:00:00 17:00:00 ity [facility] 2020-10-12 2020-10-12 Emergency [facility], [facility] [id number] Univers 03:58:00 06:02:00 Elmer Payan [id number] ity of [place] 4.2.7.2.6 [facility] [id number] [address] 2020-10-12 2020-10-12 [facility] ERT [id number] Univers 03:58:00 03:58:00 ELMER ity [facility] 2020-08-16 2020-08-16 Emergency [place], [facility] [id number] Univers 12:14:00 14:03:00 Gomez Payan [id number] i ty of [place] 4.2.7.2.686 [facility] [id number] [address] 2020-08-16 2020-08-16 Emergency X [facility] ERT [id number] Univers 11:58:00 11:58:00 ity of [facility] 2020-08-13 2020-08-13 [facility] [id number] Univers 10:22:00 11:38:00 Antwon Payan [id number] i ty of [place] 4.2.7.2.686 [facility] [id number] [address] 2020-08-13 2020-08-13 Emergency [facility] [id number] Univers 10:22:00 10:22:00 ANTWON ity of [facility] 2020-08-13 2020-08-13 Telephone AshleyMAYCOL [id number] Univers 00:00:00 00:00:00 Carolyn ALVARADO [id number] [facility] 4.2.7.2.686 Alex as [id number] [address] 2020-08-13 2020-08-13 Orders Doctor SEVERINO [id number] Univers 00:00:00 00:00:00 Only Unassigned, CHRISTIANO [id number] [facility] 4.2.7.2.686 Alex as [id number] [address] 2020-08-01 2020-08-01 Emergency Antwon Mandujano [facility] [id number] Univers 20:54:00 23:14:00 Po Velazco [id number] ity of [place] 4.2.7.2.686 [facility] [id number] [address] 2020-08-01 2020-08-01 Emergency X [facility] ERT [id number] Univers 20:00:00 20:00:00 ity of [facility] 2020-03-16 2020-03-17 Emergency [facility] [id number] Univers 23:52:44 03:23:00 Elmer Payan [id number] ity of [place] 4.2.7.2.686 [facility] [id number] [address] 2020-03-16 2020-03-17 Emergency [facility] [id number] Univers 23:52:44 03:23:00 ELMER borges [facility] 2020-01-06 2020-01-06 Departed CURT SANTIAGO [id number] [facility] 01:03:00 05:30:[address] 2020-01-06 2020-01-06 Departed CURT SANTIAGO [id number] [facility] 01:03:00 05:30:[address] Results Test Description Test Time Test Comments Results Result Comments Source FREE T4 2021-11-06 10:02:41 Test Item Value Reference Range Interpretation Comme nts FREE T4 (test code = See_Comment [Autom ated message] The system [id number]) which generated this result transmitted ref erence range: 0.78 - 2.20 ng/dL:. The reference range was not u sed to interpret this result as normal/abnormal. Lab Interpretation (test code = Normal 93534-9) [facility] [id number] 09:40:26 Test Item Value Reference Range Interpretation Comments CK (test code = 0531439420) <20 33-194 L Lab Interpretation (test code = Abnormal 28330-6) [facility] STIMULATING [id number] 08:19:26 Test Item Value Reference Range Interpretation Comments TSH (test code = See_Comment [Automated message] 5348484050) The system [employer] h generated this result transmitted ref erence range: 0.45 - 4 .70 mIU/L. The refe rence range was not u sed to interpret this result as normal/abnor mal. Lab Interpretation (test Normal code = 85799-0) [facility] [id number] 08:02:24 Test Item Value Reference Interpretation Comments Range TROPONIN I (test 0.001 ng/mL See_Comment [Automated code = 5571914137) message] The system which generated this result [...] biotin. Lab Interpretation Normal (test code = 85543-9) [facility] [id number] 07:59:06 Test Item Value Reference Range Interpretation Comments NT-proBNP (test code 29 pg/mL See_Comment [Autom ated = 0097940400) message] The system which generated this result transmitted reference range : <=125. The reference range was not used to interpret this result as normal/abnormal . FIDENCIO (test code = FIDENCIO) Biotin has been reported to cause a negative bias, interpret results relative to patient's use of biotin. Lab Interpretation Normal (test code = 64933-2) [facility] THRMPLAS [id number] 07:50:03 Test Item Value Reference Range Interpretation Comments APTT Patient (test See_Comment [Automat ed code = 3173-2) message] The system which generated this result transmitted reference range : 23 - 38 Seconds . The reference range was not used to interpr et this result as normal/abnormal . FIDENCIO (test code = FIDENCIO) The [facility] patient population mean normal value for aPTT is 30 seconds. Lab Interpretation Normal (test code = 05919-7) [facility] METABOLIC PANEL ([id number])2021-11-06 07:49:22 Test Item Value Reference Range Interpretation Comments NA (test code = 135 mmol/L 135-145 7072802851) K (test code = 4.1 mmol/L 3.5-5.0 1235704209) CL (test code = 100 mmol/L 98-108 4975051819) CO2 TOTAL (test code = 25 mmol/L 23-31 0564237941) AGAP (test code = 2-16 5463593591) BUN (test code = 7 mg/dL 7-23 1469054126) GLUCOSE (test code = 299 mg/dL 70-110 H 7879829767) CREATININE (test code = 0.59 mg/dL 0.50-1.04 2268173145) TOTAL BILI (test code = 0.6 mg/dL 0.1-1.3 0051864176) CALCIUM (test code = 8.5 mg/dL 8.6-10.6 L 5283503285) T PROTEIN (test code = 6.9 g/dL 6.3-8.2 8882629348) ALBUMIN (test code = 4.2 g/dL 3.5-5.0 6033065644) ALK PHOS (test code = 68 U/L 34-122 8683757489) ALTv (test code = 53 U/L 5-35 H 2-6) AST(SGOT) (test code = 40 U/L 13-40 8003097502) eGFR (test code = mL/min/1.73m2 1428372740) FIDENCIO (test code = FIDENCIO) Association of [...] tests). Lab Interpretation Abnormal (test code = 10360-1) [facility] / [id number] 07:47:21 Test Item Value Reference Range Interpretation [...] tions. Lab Interpretation (test Normal code = 40002-6) [facility]ne[facility] WITH [id number] 07:40:59 Test Item Value Reference Range Interpretation [...] (test code = 35.6 fL 39.0-49.9 L 72953-2) RDW-CV (test code = 11.9 % 12.0-15.5 L 788-0) PLT (test code = See_Comment L [Automated 777-3) message] The sy stem which generated this result transmitted reference range : 166 - 358 10*3/ ?L. The reference r can was not used to interpret this result as normal/abnormal . MPV (test code = 11.9 fL 9.5-12.9 31132-4) IPF % (test code = 5.1 % 1.3-7.7 Platelet count 2338541885) measured by fluorescence method. NRBC/100 WBC (test See_Comment [Automat ed code = 5239236568) message] The system which generated this result transmitted reference range : 0.0 - 10.0 /100 WBCs. The refer ence range was not u sed to interpret th is result as normal/abnormal . NRBC x10^3 (test code <0.01 See_Comment [Auto mated = 2298151941) message] The s ystem which generated this result transmitted reference range : 10*3/?L. The reference range was not used to interpret this result as normal/abnormal . GRAN MAT (NEUT) % 83.4 % (test code = 770-8) IMM GRAN % (test code 0.40 % = 2358021880) LYMPH % (test code = 10.8 % 736-9) MONO % (test code = 5.0 % 5905-5) EOS % (test code = 0.1 % 713-8) BASO % (test code = 0.3 % 706-2) GRAN MAT x10^3(ANC) 6.11 10*3/uL 1.88-7.09 (test code = 6764082349) IMM GRAN x10^3 (test 0.03 10*3/uL 0.00-0.06 code = 5000892461) LYMPH x10^3 (test code 0.79 10*3/uL 1.32-3.29 L = 731-0) MONO x10^3 (test code 0.37 10*3/uL 0.33-0.92 = 742-7) EOS x10^3 (test code = <0.03 0.03-0.39 L 711-2) BASO x10^3 (test code <0.03 0.01-0.07 = 704-7) Lab Interpretation Abnormal (test code = 09173-7) [facility]ne[facility] [id number] 07:28:00 Test Item Value Reference Range Interpretation Comments POCT PREG (test code = 1605) neg On board controls acceptable with present C Line (test code = 3574) POCT PREG LOT # (test code = 3575) [id number] POCT PREG TEST DATE (test 12/29/2022 code = 3576) Lab Interpretation (test code = Normal 79893-1) [facility] METABOLIC PANEL (69745)2021-10-31 15:48:15 Test Item Value Reference Range Interpretation Comments NA (test code = 132 mmol/L 135-145 L 3020449649) K (test code = 4.4 mmol/L 3.5-5.0 2353850977) CL (test code = 101 mmol/L 98-108 9593414791) CO2 TOTAL (test code = 23 mmol/L 23-31 5289488038) AGAP (test code = 2-16 0050135020) BUN (test code = 9 mg/dL 7-23 5318615098) GLUCOSE (test code = 317 mg/dL 70-110 H 0959647000) CREATININE (test code = 0.54 mg/dL 0.50-1.04 5031826915) TOTAL BILI (test code = 0.7 mg/dL 0.1-1.1 5418609427) CALCIUM (test code = 8.7 mg/dL 8.6-10.6 1368544739) T PROTEIN (test code = 7.1 g/dL 6.3-8.2 0738460445) ALBUMIN (test code = 4.3 g/dL 3.5-5.0 2741548400) ALK PHOS (test code = 67 U/L 34-122 6446168060) ALTv (test code = 56 U/L 5-35 H 1742-6) AST(SGOT) (test code = 58 U/L 13-40 H 4409839658) eGFR (test code = mL/min/1.73m2 0723124651) FIDENCIO (test code = FIDENCIO) Association of [...] tests). Lab Interpretation Abnormal (test code = 30928-9) [facility]ne[facility]DE [id number] 15:32:00 Test Item Value Reference Range Interpretation Comments POCT PREG (test code = 1605) negative On board controls acceptable with present C Line (test code = 3574) POCT PREG LOT # (test code = 3575) [id number] POCT PREG TEST DATE (test 12/29/2022 code = 3576) Lab Interpretation (test code = Normal 17570-9) [facility] WITH [id number] 15:11:56 Test Item Value Reference Range Interpretation Comments WBC (test code = See_Comment [Automated 3378-2) message] The sy stem which generated this result transmitted reference range : 4.30 - 11.10 10*3/?L. The reference range was not used to interpret this result as normal/abnormal . RBC (test code = See_Comment H [Automated 968-8) message] The sy stem which generated this [...] (test code = 35.9 fL 39.0-49.9 L 95222-1) RDW-CV (test code = 12.0 % 12.0-15.5 788-0) PLT (test code = See_Comment L [Automated 777-3) message] The sy stem which generated this result transmitted reference range : 166 - 358 10*3/ ?L. The reference r can was not used to interpret this result as normal/abnormal . MPV (test code = 12.8 fL 9.5-12.9 09595-7) NRBC/100 WBC (test See_Comment [Automat ed code = 2012514785) message] The system which generated this result transmitted reference range : 0.0 - 10.0 /100 WBCs. The refer ence range was not u sed to interpret th is result as normal/abnormal . NRBC x10^3 (test code <0.01 See_Comment [Auto mated = 9388822539) message] The s ystem which generated this result transmitted reference range : 10*3/?L. The reference range was not used to interpret this result as normal/abnormal . GRAN MAT (NEUT) % 67.2 % (test code = 770-8) IMM GRAN % (test code 0.50 % = 5602474883) LYMPH % (test code = 20.1 % 736-9) MONO % (test code = 11.6 % 5905-5) EOS % (test code = 0.3 % 713-8) BASO % (test code = 0.3 % 706-2) GRAN MAT x10^3(ANC) 4.34 10*3/uL 1.88-7.09 (test code = 0285931695) IMM GRAN x10^3 (test 0.03 10*3/uL 0.00-0.06 code = 1702874660) LYMPH x10^3 (test code 1.30 10*3/uL 1.32-3.29 L = 731-0) MONO x10^3 (test code 0.75 10*3/uL 0.33-0.92 = 742-7) EOS x10^3 (test code = <0.03 0.03-0.39 L 711-2) BASO x10^3 (test code <0.03 0.01-0.07 = 704-7) Lab Interpretation Abnormal (test code = 23595-9) [facility] GLUCOSE (AUTOMATED)2021-05-27 00:02:41 Test Item Value Reference Range Interpretation Comments POCT GLU (test code = 1682854628) 326 mg/dL 70-110 H Lab Interpretation (test code = Abnormal 61420-5) [facility] GLUCOSE(AGE >30DAYS)2021-05-26 23:56:00 Test Item Value Reference Range Interpretation Comments POCT Glu (age>30days) (test code = 326 mg/dL 70-110 A 3342) Lab Interpretation (test code = Abnormal 35867-1) [facility]2021-[facility]-26 23:29:54 Test Item Value Reference Range Interpretation Comments APPEARANCE (test code = Clear Clear 2375384895) COLOR (test code = Straw Yellow A 8163185417) PH (test code = 4.8-8.0 4835120948) SP GRAVITY (test code = 1.003-1.030 H 7129992555) GLU U QUAL (test code = 500 mg/dL Normal A 4054107082) BLOOD (test code = Negative Negative 4740066256) KETONES (test code = Negative Negative 9008670489) PROTEIN (test code = Negative Negative 2887-8) UROBILIN (test code = Normal Normal 7490437201) BILIRUBIN (test code = Negative Negative 8306242930) NITRITE (test code = Negative Negative 8329030170) LEUK FRITZ (test code = Negative Negative 1644375100) RBC/HPF (test code = See_Comment H [Autom ated message] 2362188815) The system [employer] generated this result transmit elias reference range : 0 - 3 HPF. The refe rence range was not u sed to interpret th is result as normal/abnormal . WBC/HPF (test code = See_Comment [Autom ated message] 5800210613) The system [employer] generated this result transmit elias reference range : 0 - 5 HPF. The refe rence range was not u sed to interpret th is result as normal/abnormal . BACTERIA (test code = Negative Negative 4120306680) SQ EPITH (test code = HPF 8229536397) Lab Interpretation (test Abnormal code = 68373-9) [facility] METABOLIC PANEL (NA, K, CL, CO2, GLUCOSE, BUN, CREATININE, CA)2021-05-26 23:27:11 Test Item Value Reference Range Interpretation Comments NA (test code = 135 mmol/L 135-145 6549681352) K (test code = 4.0 mmol/L 3.5-5.0 8525609091) CL (test code = 98 mmol/L 98-108 3679868637) CO2 TOTAL (test code = 28 mmol/L 23-31 8174684981) AGAP (test code = 2-16 7291681190) BUN (test code = 14 mg/dL 7-23 2391109205) GLUCOSE (test code = 388 mg/dL 70-110 H 1655312848) CREATININE (test code = 0.68 mg/dL 0.50-1.04 0422206520) CALCIUM (test code = 10.0 mg/dL 8.6-10.6 0093079361) eGFR (test code = mL/min/1.73m2 4843861126) FIDENCIO (test code = FIDENCIO) Association of [...] tests). Lab Interpretation Abnormal (test code = 25216-2) [facility] WITHOUT [id number] 23:15:04 Test Item Value Reference Range Interpretation Comments WBC (test code = 6690-2) See_Comment [A utomated message] The system [employer] generated this result transmit elias reference range : 4.30 - 11.10 10*3/?L. The reference range was not used to interpret this result as normal/abnormal . RBC (test code = 789-8) See_Comment H [Au tomated message] The system [employer] generated this result transmit elias reference range [...] 777-3) See_Comment [Au tomated message] The system [employer] generated this result transmit elias reference range : 166 - 358 10*3/?L. The reference range was not used to interpret this result as normal/abnormal . MPV (test code = 12.3 fL 9.5-12.9 47759-0) RDW-CV (test code = 11.9 % 12.0-15.5 L 788-0) RDW-SD (test code = 35.8 fL 39.0-49.9 L 08513-2) NRBC x10^3 (test code = <0.01 See_Comment [Au tomated message] 3444711723) The system [employer] h generated this result transmit elias reference range : 10*3/?L. The reference range was not used to interpret this result as normal/abnormal . NRBC/100 WBC (test code See_Comment [Au tomated message] = 2103685292) The system [employer] ch generated this result transmit elias reference range : 0.0 - 10.0 /100 WBC s. The reference r can was not used to interpret this result as normal/abnormal . IPF % (test code = 9821052410) Lab Interpretation (test Abnormal code = 08990-2) [facility] [id number] 23:07:00 Test Item Value Reference Range Interpretation Comments POCT PREG (test code = 1605) negative On board controls acceptable with present C Line (test code = 3574) POCT PREG LOT # (test code = 3575) [id number] POCT PREG TEST DATE (test code = 3576) Lab Interpretation (test code = Normal 32140-2) [facility] GLUCOSE (AUTOMATED)2021-05-26 22:26:37 Test Item Value Reference Range Interpretation Comments POCT GLU (test code = 2796559962) 404 mg/dL 70-110 H Lab Interpretation (test code = Abnormal 51058-9) [facility] GLUCOSE (AUTOMATED)2020-10-12 11:46:00 Test Item Value Reference Range Interpretation Comments POCT GLU (test code = 7768993018) 299 mg/dL 70-110 H Lab Interpretation (test code = Abnormal 14296-2) [facility]. METABOLIC PANEL (11693)2020-10-12 10:24:00 Test Item Value Reference Range Interpretation Comments NA (test code = 135 mmol/L 135-145 7601194694) K (test code = 3.6 mmol/L 3.5-5 2368958413) CL (test code = 100 mmol/L 98-108 4595936330) CO2 TOTAL (test code = 24 mmol/L 23-31 9366687394) AGAP (test code = 2-16 5048589895) BUN (test code = 17 mg/dL 7-23 6548639920) GLUCOSE (test code = 344 mg/dL 70-110 H 9697030357) CREATININE (test code = 0.66 mg/dL 0.5-1.04 3328231614) TOTAL BILI (test code = 0.6 mg/dL 0.1-1.3 4836465442) CALCIUM (test code = 9.1 mg/dL 8.6-10.6 6159804952) T PROTEIN (test code = 7.3 g/dL 6.3-8.2 2908278955) ALBUMIN (test code = 4.4 g/dL 3.5-5 1032382347) ALK PHOS (test code = 70 U/L 34-122 6257928687) ALTv (test code = 23 U/L 5-35 1742-6) AST(SGOT) (test code = 21 U/L 13-40 8584403566) eGFR Calculation mL/min/1.73m2 (Non-) (test code = 6224312382) eGFR Calculation mL/min/1.73m2 () (test code = 2569010436) FIDENCIO (test code = FIDENCIO) Association of [...] tests). Lab Interpretation Abnormal (test code = 86986-8) [facility] Test Item Value Reference Range Interpretation Comments LIPASE (test code = 2733094987) 183 U/L 0-220 Lab Interpretation (test code = Normal 06485-3) [facility] [id number] 10:14:56 Test Item Value Reference Range Interpretation Comments On board controls acceptable with present C Line (test code = 3574) POCT PREG LOT # (test code = 3575) [id number] POCT PREG TEST DATE (test 02/28/2022 code = 3576) POCT PREG (test code = 1605) negative Lab Interpretation (test code = Normal 85605-7) [facility] WITH [id number] 10:13:00 Test Item Value Reference Range Interpretation Comments WBC (test code = See_Comment [Automated 5393-2) message] The sy stem which generated this result transmitted reference range : 4.30 - 11.10 10*3/?L. The reference range was not used to interpret this result as normal/abnormal . RBC (test code = See_Comment H [Automated 508-8) message] The sy stem which generated this [...] (test code = 35.9 fL 39-49.9 L 10791-1) RDW-CV (test code = 12.0 % 12-15.5 788-0) PLT (test code = See_Comment [Automated 777-3) message] The sy stem which generated this result transmitted reference range : 166 - 358 10*3/ ?L. The reference r can was not used to interpret this result as normal/abnormal . MPV (test code = 12.0 fL 9.5-12.9 65792-8) NRBC/100 WBC (test See_Comment [Automat ed code = 5302877669) message] The system which generated this result transmitted reference range : 0.0 - 10.0 /100 WBCs. The refer ence range was not u sed to interpret th is result as normal/abnormal . NRBC x10^3 (test code <0.01 See_Comment [Auto mated = 6130713792) message] The s ystem which generated this result transmitted reference range : 10*3/?L. The reference range was not used to interpret this result as normal/abnormal . GRAN MAT (NEUT) % 65.0 % (test code = 770-8) IMM GRAN % (test code 0.60 % = 7403803120) LYMPH % (test code = 27.0 % 736-9) MONO % (test code = 5.6 % 5905-5) EOS % (test code = 1.2 % 713-8) BASO % (test code = 0.6 % 706-2) GRAN MAT x10^3(ANC) 6.67 10*3/uL 1.88-7.09 (test code = 9394972843) IMM GRAN x10^3 (test 0.06 10*3/uL 0-0.06 code = 0278643821) LYMPH x10^3 (test code 2.77 10*3/uL 1.32-3.29 = 731-0) MONO x10^3 (test code 0.57 10*3/uL 0.33-0.92 = 742-7) EOS x10^3 (test code = 0.12 10*3/uL 0.03-0.39 711-2) BASO x10^3 (test code 0.06 10*3/uL 0.01-0.07 = 704-7) Lab Interpretation Abnormal (test code = 13244-4) [facility] [id number] 18:31:00 Test Item Value Reference Range Interpretation Comments Streptococcus pyogenes (group A) Negative Negative antigen (test code = 64629-1) Lab Interpretation (test code = Normal 17735-3) [facility] 1 [id number] 18:17:43 No acute cardiopulmonary abnormality. Preliminary Report [...] or pleural effusion is seen.Musculoskeletal: No ac [place] skeletal abnormality.IMPRESSIONNo acute cardiopulmonary abnormality.Preliminary Report Dictated by Resident: Nick Dasilva, Bridgette Ward MD., have reviewed this study and agree with theabove report. [facility]nePO[facility] [id number] 17:28:00 Test Item Value Reference Range Interpretation Comments POCT PREG (test code = 1605) negative POCT PREG LOT # (test code = 3575) [id number] POCT PREG TEST DATE (test 01/29/2022 code = 3576) Lab Interpretation (test code = Normal 58666-3) [facility]ne[facility] STIMULATING [id number] 03:48:00 Test Item Value Reference Range Interpretation Comments TSH (test code = See_Comment [Automated message] 9312334729) The system [employer] generated this result transmitted ref erence range: 0.45 - 4 .70 mIU/L. The refe rence range was not u sed to interpret this result as normal/abnor mal. Lab Interpretation (test Normal code = 72630-1) [facility] GLUCOSE (AUTOMATED)2020-08-02 03:36:00 Test Item Value Reference Range Interpretation Comments POCT GLU (test code = 4209222235) 457 mg/dL 70-110 HH Lab Interpretation (test code = Abnormal 14297-0) [facility] GLUCOSE (AUTOMATED)2020-08-02 03:36:00 Test Item Value Reference Range Interpretation Comments POCT GLU (test code = 5930630801) 270 mg/dL 70-110 H Lab Interpretation (test code = Abnormal 80635-7) [facility]neXR CHEST 1 [id number] 03:13:37 No acute cardiopulmonary abnormality. Preliminary Report [...] abnormality.IMPRESSIONNo acutecardiopulmonary abnormality.Preliminary Report Dictated by Resident: CarlosLatoya Grier MD., have reviewed this study and agree with theabove report.[facility] TROPONIN [id number] 02:52:00 Test Item Value Reference Range Interpretation Comments TROPONIN I (test <0.012 See_Comment [Automated code = 6973650897) message] The system which generated this result [...] ? Lab Interpretation Normal (test code = 25652-3) [facility] METABOLIC PANEL (62673)2020-08-02 02:49:00 Test Item Value Reference Range Interpretation Comments NA (test code = 136 mmol/L 135-145 4990868177) K (test code = 4.0 mmol/L 3.5-5 4013709144) CL (test code = 99 mmol/L 98-108 2260733697) CO2 TOTAL (test code = 28 mmol/L 23-31 3753210751) AGAP (test code = 2-16 5563237451) BUN (test code = 13 mg/dL 7-23 7494005221) GLUCOSE (test code = 466 mg/dL 70-110 HH 0183933760) CREATININE (test code = 0.70 mg/dL 0.5-1.04 5063176693) TOTAL BILI (test code = 0.4 mg/dL 0.1-1.8 8738716547) CALCIUM (test code = 9.7 mg/dL 8.6-10.6 0268368406) T PROTEIN (test code = 7.0 g/dL 6.3-8.2 3337499954) ALBUMIN (test code = 4.5 g/dL 3.5-5 7823584027) ALK PHOS (test code = 64 U/L 34-122 1482275712) ALTv (test code = 25 U/L 5-35 1742-6) AST(SGOT) (test code = 21 U/L 13-40 9788426696) eGFR Calculation mL/min/1.73m2 (Non-) (test code = 0085107664) eGFR Calculation mL/min/1.73m2 () (test code = 3652117579) FIDENCIO (test code = FIDENCIO) Association of [...] tests). Lab Interpretation Abnormal (test code = 14784-0) [facility] WITH [id number] 02:26:00 Test Item Value Reference Range Interpretation [...] RDW-SD (test code = 39.8 fL 39-49.9 65587-1) RDW-CV (test code = 13.6 % 12-15.5 788-0) PLT (test code = See_Comment [Automated 777-3) message] The sy stem which generated this result transmitted reference range : 166 - 358 10*3/ ?L. The reference r can was not used to interpret this result as normal/abnormal . MPV (test code = 12.2 fL 9.5-12.9 52730-3) NRBC/100 WBC (test See_Comment [Automat ed code = 8646126821) message] The system which generated this result transmitted reference range : 0.0 - 10.0 /100 WBCs. The refer ence range was not u sed to interpret th is result as normal/abnormal . NRBC x10^3 (test code <0.01 See_Comment [Auto mated = 4146016849) message] The s ystem which generated this result transmitted reference range : 10*3/?L. The reference range was not used to interpret this result as normal/abnormal . GRAN MAT (NEUT) % 68.0 % (test code = 770-8) IMM GRAN % (test code 0.40 % = 3399665798) LYMPH % (test code = 24.6 % 736-9) MONO % (test code = 5.6 % 5905-5) EOS % (test code = 1.0 % 713-8) BASO % (test code = 0.4 % 706-2) GRAN MAT x10^3(ANC) 5.57 10*3/uL 1.88-7.09 (test code = 8886252781) IMM GRAN x10^3 (test 0.03 10*3/uL 0-0.06 code = 4276960023) LYMPH x10^3 (test code 2.01 10*3/uL 1.32-3.29 = 731-0) MONO x10^3 (test code 0.46 10*3/uL 0.33-0.92 = 742-7) EOS x10^3 (test code = 0.08 10*3/uL 0.03-0.39 711-2) BASO x10^3 (test code 0.03 10*3/uL 0.01-0.07 = 704-7) Lab Interpretation Abnormal (test code = 52069-2) [facility] WITH [id number] 07:27:00 Test Item Value Reference Range Interpretation Comments WBC (test code = See_Comment [Automated 8490-2) message] The sy stem which generated this result transmitted reference range : 4.30 - 11.10 10*3/?L. The reference range was not used to interpret this result as normal/abnormal . RBC (test code = See_Comment H [Automated 479-8) message] The sy stem which generated this [...] (test code = 35.8 fL 39-49.9 L 74452-4) RDW-CV (test code = 12.4 % 12-15.5 788-0) PLT (test code = See_Comment L [Automated 777-3) message] The sy stem which generated this result transmitted reference range : 166 - 358 10*3/ ?L. The reference r can was not used to interpret this result as normal/abnormal . MPV (test code = 12.5 fL 9.5-12.9 88227-3) NRBC/100 WBC (test See_Comment [Automat ed code = 7584852272) message] The system which generated this result transmitted reference range : 0.0 - 10.0 /100 WBCs. The refer ence range was not u sed to interpret th is result as normal/abnormal . NRBC x10^3 (test code <0.01 See_Comment [Auto mated = 1165847445) message] The s ystem which generated this result transmitted reference range : 10*3/?L. The reference range was not used to interpret this result as normal/abnormal . GRAN MAT (NEUT) % 58.2 % (test code = 770-8) IMM GRAN % (test code 0.40 % = 5045642523) LYMPH % (test code = 34.1 % 736-9) MONO % (test code = 6.3 % 5905-5) EOS % (test code = 0.4 % 713-8) BASO % (test code = 0.6 % 706-2) GRAN MAT x10^3(ANC) 2.87 10*3/uL 1.88-7.09 (test code = 3130213777) IMM GRAN x10^3 (test <0.03 0-0.06 code = 8527839864) LYMPH x10^3 (test code 1.68 10*3/uL 1.32-3.29 = 731-0) MONO x10^3 (test code 0.31 10*3/uL 0.33-0.92 L = 742-7) EOS x10^3 (test code = <0.03 0.03-0.39 L 711-2) BASO x10^3 (test code 0.03 10*3/uL 0.01-0.07 = 704-7) PLT ESTIMATE (test Decreased Normal A code = 9317-9) Lab Interpretation Abnormal (test code = 04494-6) [facility]2020-[facility]-17 07:00:00 Test Item Value Reference Range Interpretation Comments APPEARANCE (test code = Clear Clear 4411015008) COLOR (test code = Yellow Yellow 9297976221) PH (test code = 4.8-8.0 4275925289) SP GRAVITY (test code = 1.003-1.030 2413083543) GLU U QUAL (test code = 500 mg/dL Normal A 2341076107) BLOOD (test code = 1+ Negative A 0080617363) KETONES (test code = Negative Negative 8491655600) PROTEIN (test code = Negative Negative 2887-8) UROBILIN (test code = Normal Normal 0697833740) BILIRUBIN (test code = Negative Negative 3595926325) NITRITE (test code = Positive Negative A 1071875754) LEUK FRITZ (test code = Negative Negative 3138673105) RBC/HPF (test code = See_Comment [Autom ated message] 7092717188) The system [employer] generated this result transmit elias reference range : 0 - 3 HPF. The refe rence range was not u sed to interpret th is result as normal/abnormal . WBC/HPF (test code = See_Comment [Autom ated message] 1456121513) The system [employer] generated this result transmit elias reference range : 0 - 5 HPF. The refe rence range was not u sed to interpret th is result as normal/abnormal . BACTERIA (test code = Moderate Negative A 0437380311) MUCOUS (test code = Slight Negative LPF A 2696195164) SQ EPITH (test code = HPF 0772400274) Lab Interpretation (test Abnormal code = 09999-1) [facility] [id number] 06:19:00 Test Item Value Reference Range Interpretation Comments POCT PREG (test code = 1605) negative On board controls acceptable with positive C Line (test code = 3574) POCT PREG LOT # (test code = 3575) [id number] POCT PREG TEST DATE (test 05/31/2021 code = 3576) Lab Interpretation (test code = Normal 80117-4) [facility] COVID-19 [id number] 05:53:00 Test Item Value Reference Range Interpretation Comments SARS-CoV-2 (test code = Not Detected Not Detected 44919-3) FIDENCIO (test code = FIDENCIO) ID NOW COVID-19 Assay is an isothermal nucleic acid amplification test intended for the qualitative detection of nucleic acid from SARS-CoV-2 viral RNA in nasopharyngeal (SLOT HOST) specimens. It is used under Emergency Use [...] indicated. Lab Interpretation Normal (test code = 11569-4) [facility] METABOLIC PANEL (59250)2020-03-17 05:53:00 Test Item Value Reference Range Interpretation Comments NA (test code = 137 mmol/L 135-145 3568135734) K (test code = 3.8 mmol/L 3.5-5 0719841596) CL (test code = 99 mmol/L 98-108 8060126471) CO2 TOTAL (test code = 25 mmol/L 23-31 4372632254) AGAP (test code = 2-16 7777866664) BUN (test code = 13 mg/dL 7-23 8091076326) GLUCOSE (test code = 307 mg/dL 70-110 H 6105276737) CREATININE (test code = 0.79 mg/dL 0.5-1.04 9474370500) TOTAL BILI (test code = 1.0 mg/dL 0.1-1.5 3822436600) CALCIUM (test code = 9.6 mg/dL 8.6-10.6 5018755900) T PROTEIN (test code = 7.9 g/dL 6.3-8.2 4041694535) ALBUMIN (test code = 4.7 g/dL 3.5-5 3347513522) ALK PHOS (test code = 83 U/L 34-122 3339972463) ALTv (test code = 51 U/L 5-35 H 1742-6) AST(SGOT) (test code = 39 U/L 13-40 7333698983) eGFR Calculation mL/min/1.73m2 (Non-) (test code = 9972761049) eGFR Calculation mL/min/1.73m2 () (test code = 6524205466) FIDENCIO (test code = FIDENCIO) Association of [...] tests). Lab Interpretation Abnormal (test code = 70705-5) [facility]neLactic Acid Whole [id number] 05:29:00 Test Item Value Reference Range Interpretation Comments LACTIC ACID (test code = 1.72 mmol/L 0.3-2.6 3517037573) [facility]neAutom[facility] blood leukocyte count (number/volume)2020-01-06 01:45:00 Test Item Value Reference Range Interpretation Comments White Blood Count (test code = 15.3 10*3/uL 4.5-11.5 6690-2) [facility] erythrocytes automated count (number/volume)2020-01-06 01:45:00 Test Item Value Reference Range Interpretation Comments Red Blood Count (test code = 5.34 10*6/uL 3.8-5.1 789-8) [facility] hemoglobin measurement (mass/volume)2020-01-06 01:45:00 Test Item Value Reference Range Interpretation Comments Hemoglobin (test code = 718-7) 14.5 g/dL 12.0-15.2 [facility] HealthAutomated blood hematocrit (volume fraction)2020-01-06 01:45:00 Test [...] HealthAutomated erythrocyte mean corpuscular hemoglobin concentration measurement (mass/bmt6440-12-53 01:45:00 Test Item Value Reference Range Interpretation Comments Mean Corpuscular Hemoglobin Concent 32.8 g/dL 33.0-37.0 (test code = 786-4) [facility] HealthAutomated erythrocyte distribution width loitv4038-58-73 01:45:00 Test Item Value Reference Range Interpretation Comments Red Cell Distribution Width (test code 12.3 % 10.7-14.5 = 788-0) [facility] HealthAutomated blood platelet count (count/volume)2020-01-06 01:45:00 Test Item Value Reference Range Interpretation Comments Platelet Count (test code = 194 10*3/uL 150-450 777-3) [facility] HealthAutomated blood platelet mean volume jpsdypowyvw6808-30-53 01:45:00 Test Item Value Reference Range Interpretation Comments Mean Platelet Volume (test code = 12.4 5.7-10.7 87277-0) [facility] comment [id number] 01:45:00 Test Item Value Reference Range Interpretation Comments Manual Differential (test code = ----- 8265-1) [facility] HealthManual blood segmented neutrophils/100 yeofjfrhrh8061-87-00 01:45:00 Test Item Value Reference Range Interpretation Comments Neutrophils % (Manual) (test code = 83 % 42-75 769-0) [facility]Manual blood band neutrophils form/100 dmlswcjkde9972-53-70 01:45:00 Test Item Value Reference Range Interpretation Comments Band Neutrophils % (Manual) (test code 8 % 5-11 = 764-1) [facility]Manual blood lymphocytes/100 jgdksprtbh8147-15-92 01:45:00 Test Item Value Reference Range Interpretation Comments Lymphocytes % (Manual) (test code = 8 % 21-51 737-7) [facility]Manual blood monocytes/100 ckuoqsiuih7521-37-76 01:45:00 Test Item Value Reference Range Interpretation Comments Monocytes % (Manual) (test code = 1 % 1-9 744-3) [facility] platelet detection by light aatxjbuvqn7108-13-09 01:45:00 Test Item Value Reference Range Interpretation Comments Platelet Estimate (test code = Adequate 9317-9) [facility] HealthBlood erythrocyte morphology finding pamiovjayzkpxs1969-56-32 01:45:00 Test Item Value Reference Range Interpretation [...] Level (test code = 105 mmol/L 98-107 2075-0) [facility] HealthSerum or plasma total carbon dioxide measurement (moles/volume) 2020-01-06 01:45:00 Test Item Value Reference Range Interpretation Comments Carbon Dioxide Level (test code = 26 mmol/L 22-29 8-9) [facility] HealthSerum or plasma anion gap determination (moles/volume)2020-01-06 01:45:00 Test Item Value Reference Range Interpretation Comments Anion Gap (test code = 43753-5) 12 -18 [facility] HealthSerum or plasma urea nitrogen measurement (mass/volume)2020-01-06 01:45:00 Test Item Value Reference Range Interpretation Comments Blood Urea Nitrogen (test code = 13 mg/dL 05-19 3094-0) [facility] HealthSerum or plasma creatinine measurement (mass/volume)2020-01-06 01:45:00 Test Item Value Reference Range Interpretation Comments Creatinine (test code = 2160-0) 0.9 mg/dL 0.6-1.1 [facility] HealthGFR estimate QYTK2609-85-51 01:45:00 Test Item Value Reference Range Interpretation Comments Estimat Glomerular Filtration Rate 80 90-142 (test code = 77312-4) [facility] HealthSerum or plasma glucose measurement (mass/volume)2020-01-06 01:45:00 Test Item Value Reference Range Interpretation Comments Glucose Level (test code = 2345-7) 287 mg/dL 60-100 [facility] HealthSerum or plasma calcium measurement (mass/volume)2020-01-06 01:45:00 Test Item Value Reference Range Interpretation Comments Calcium Level (test code = 75998-6) 8.8 mg/dL 8.4-10.2 [facility] HealthSerum or plasma total bilirubin measurement (mass/volume) 2020-01-06 01:45:00 Test Item Value Reference Range Interpretation Comments Total Bilirubin (test code = 0.4 mg/dL 0.2-1.2 1974-2) [facility] HealthSerum or plasma aspartate aminotransferase measurement (enzymatic activity/volume)2020-01-06 01:45:00 Test Item Value Reference Range Interpretation Comments Aspartate Amino Transf (AST/SGOT) 18 U/L 5-34 (test code = 1920-8) [facility] HealthSerum or plasma alanine aminotransferase measurement (enzymatic activity/volume)2020-01-06 [...] (test code = 62 U/L 40-150 6768-6) [facility] blood band neutrophils form/100 avllnltcbk6572-50-53 01:45:00 Test Item Value Reference Range Interpretation Comments Band Neutrophils % (Manual) (test code 8 % = 764-1) [facility]/100 sjioglbpyu8293-88-56 01:45:00 Test Item Value Reference Range Interpretation Comments Lymphocytes % (Manual) (test code = 8 % 737-7) [facility] monocytes/100 zmakqpffcq7317-63-41 01:45:00 Test Item Value Reference Range Interpretation Comments Monocytes % (Manual) (test code = 1 % 744-3) [facility] platelet detection by light dcklrbzrbu5682-20-73 01:45:00 Test Item Value Reference Range Interpretation Comments Platelet Estimate (test code = Adequate 9317-9) [facility] erythrocyte morphology finding identification 2020-01-06 01:45:00 Test Item Value Reference Range Interpretation Comments Red Blood Cell Morphology (test code = Normal 6742-1) [facility] sodium measurement (moles/volume) 2020-01-06 01:45:00 Test Item Value Reference Range Interpretation Comments Sodium Level (test code = 2951-2) 139 mmol/L [facility] plasma potassium measurement (moles/volume) 2020-01-06 01:45:00 Test Item Value Reference Range Interpretation Comments Potassium Level (test code = 4.3 mmol/L 2823-3) [facility] chloride measurement (moles/volume) 2020-01-06 01:45:00 Test Item Value Reference Range Interpretation Comments Chloride Level (test code = 105 mmol/L 5-0) [facility] total carbon dioxide measurement (moles/volume)2020-01-06 01:45:00 Test Item Value Reference Range Interpretation Comments Carbon Dioxide Level (test code = 26 mmol/L 2027-9) [facility] or plasma anion gap determination (moles/volume) 2020-01-06 01:45:00 Test Item Value Reference Range Interpretation Comments Anion Gap (test code = 38893-1) [address] [facility] [address] [facility]Serum or plasma urea nitrogen measurement (mass/volume) 2020-01-06 01:45:00 Test Item Value Reference Range Interpretation Comments Blood Urea Nitrogen (test code = 13 mg/dL 3094-0) [facility] or plasma creatinine measurement (mass/volume) 2020-01-06 01:45:00 Test Item Value Reference Range Interpretation Comments Creatinine (test code = 2160-0) 0.9 mg/dL [facility] AnanyabethGFR estimate [id number] 01:45:00 Test Item Value Reference Range Interpretation Comments Estimat Glomerular Filtration Rate 80 (test code = 60290-0) [facility] or plasma glucose measurement (mass/volume) 2020-01-06 01:45:00 Test Item Value Reference Range Interpretation Comments Glucose Level (test code = 2345-7) 287 mg/dL [facility] or plasma calcium measurement (mass/volume) 2020-01-06 01:45:00 Test Item Value Reference Range Interpretation Comments Calcium Level (test code = 29756-2) 8.8 mg/dL [facility]um or plasma total bilirubin measurement (mass/volume) 2020-01-06 01:45:00 Test Item Value Reference Range Interpretation Comments Total Bilirubin (test code = 0.4 mg/dL 1975-2) [facility] Hospitalerum or plasma aspartate aminotransferase measurement (enzymatic activity/volume)2020-01-06 01:45:00 Test Item Value Reference Range Interpretation Comments Aspartate Amino Transf (AST/SGOT) 18 U/L (test code = 1920-8) [facility] Hospitalerum or plasma alanine aminotransferase measurement (enzymatic activity/volume)2020-01-06 01:45:00 Test Item Value Reference Range Interpretation Comments Alanine Aminotransferase (ALT/SGPT) 25 U/L (test code = 1742-6) [facility] [facility] or plasma protein measurement (mass/volume) 2020-01-06 01:45:00 Test Item Value Reference Range Interpretation Comments Total Protein (test code = 2885-2) 7.1 g/dL [facility] or plasma albumin measurement (mass/volume) 2020-01-06 01:45:00 Test Item Value Reference Range Interpretation Comments Albumin (test code = 1751-7) 4.2 g/dL [facility] alkaline phosphatase measurement (enzymatic activity/volume)2020-01-06 01:45:00 Test Item Value Reference Range Interpretation Comments Alkaline Phosphatase (test code = 62 U/L 6768-6) [facility]. ChesaningAutomated blood leukocyte count (number/volume)2020-01-06 01:45:00 Test Item Value Reference Range Interpretation Comments White Blood Count (test code = 15.3 10*3/uL 6690-2) [facility]. [facility] automated count (number/volume) 2020-01-06 01:45:00 Test Item Value Reference Range Interpretation Comments Red Blood Count (test code = 5.34 10*6/uL 789-8) [facility]. [facility]chard[facility]Blood hemoglobin measurement (mass/volume)2020-01-06 01:45:00 Test Item Value Reference Range Interpretation Comments Hemoglobin (test code = 718-7) 14.5 g/dL [facility] Center[facility] hematocrit (volume fraction)2020-01-06 01:45:00 Test Item Value Reference Range Interpretation Comments Hematocrit (test code = 4544-3) 44.2 % [facility] [place]. AnanyabemaribelAutomated erythrocyte mean corpuscular volume (MCV) [id number] 01:45:00 Test Item Value Reference Range Interpretation Comments Mean Corpuscular Volume (test code = 83 fL 787-2) [facility]. ElizabeAutomated erythrocyte mean corpuscular hemoglobin (mass per erythrocyte)2020-01-06 01:45:00 Test Item Value Reference Range Interpretation Comments Mean Corpuscular Hemoglobin (test 27.2 pg code = 785-6) [facility]. AnanyabemaribelAutomated erythrocyte mean corpuscular hemoglobin concentration measurement (mass/[id number] 01:45:00 Test Item Value Reference Range Interpretation Comments Mean Corpuscular Hemoglobin Concent 32.8 g/dL (test code = 786-4) [facility]. AnanyabeAutomated erythrocyte distribution width [id number] 01:45:00 Test Item Value Reference Range Interpretation Comments Red Cell Distribution Width (test code 12.3 % = 788-0) [facility]. JoAutomated blood platelet count (count/volume)2020-01-06 01:45:00 Test Item Value Reference Range Interpretation Comments Platelet Count (test code = 194 10*3/uL 777-3) [facility]. AnanyabeAutomated blood platelet mean volume [id number] 01:45:00 Test Item Value Reference Range Interpretation Comments Mean Platelet Volume (test code = 12.4 50698-9) [facility] . JothService comment [id number] 01:45:00 Test Item Value Reference Range Interpretation Comments Manual Differential (test code = ----- 8265-1) [facility]. KerriGoshenual blood segmented neutrophils/100 leukocytes 2020-01-06 01:45:00 Test Item Value Reference Range Interpretation Comments Neutrophils % (Manual) (test code = 83 % 769-0) [facility]. KerriURINALYSIS WITH [id number] 20:58:00 Test Item Value Reference Range Interpretation Comments Color (test code = UCOLR) Lt. Yellow Clarity (test code = UCLAR) CLEAR Glucose (test code = UGLUC) >=1000 NEGATIVE A Bilirubin (test code = UBILI) NEGATIVE NEGATIVE N Ketones (test code = UKET) NEGATIVE NEGATIVE N Specific Apollo (test code = 1.010 1.005-1.030 A USPGR) [...] UBACT) 2+ None Seen,Trace A TEST, Serum [id number] 20:28:00 Test Item Value Reference Range Interpretation Comments (Serum) (test code = Negative Negative N PREGS) ACETONE, [id number] 20:27:00 Test Item Value Reference Range Interpretation Comments Acetone Serum (test code = ACETO) Negative Acetone Titer (test code = ACETIT) n/a [id number] 20:22:00 Test Item Value Reference Range Interpretation [...] 4 - SerumAlbu min)] EGFR if >60 Palestinian (test code mL/min/1.73m\\ = EGFRAA) S\\2 EGFR if Non- >60 Estimate d Glomerular Palestinian (test code mL/min/1.73m\\ Filtrat ion Rate (eGFR) [...] c hronic kidney failure. CBC WITH AUTO [id number] 19:53:00 Test Item Value Reference Range Interpretation [...]
[2021-11-10] MEDS ORDERED: ACETAMINOPHEN 500 MG TAB ONE (09:59)
[2021-11-10] MEDS ORDERED: DIPHENHYDRAMINE 50 MG/ML VIAL ONE (09:59)
[2021-11-10] MEDS ORDERED: METHYLPREDNISOLONE 125 MG INJ ONE (09:59)
[2021-11-10] MEDS ORDERED: FAMOTIDINE 20 MG/2 ML VIAL IV ONE (10:00)
[2021-11-10] MEDS ORDERED: NA CHLORIDE 0.9% 1,000 ML ONE (10:00)
[2021-11-10] MEDS ORDERED: LEVALBUTEROL 1.25 MG/3 ML NEB ONE (10:00)
[2021-11-10 10:10] LABS: Absolute Lymphocytes (CBC) 0.9 K/uL (0.7-4.9); Hematocrit 38.8 % (36.0-45.0); MPV 9.7 fL (7.6-11.3)
[2021-11-10 10:15] LABS: Urine Blood Negative (Negative); Urine Glucose 3+ (Negative); Urine Protein 2+ (Negative)
[2021-11-10 10:26] LABS: BUN Blood Urea Nitrogen 9 mg/dL (7-18); Bicarbonate 28 mmol/L (21-32); Creatine Phosphokinase 33 U/L (26-192); Glucose Level 289 mg/dL (74-106); Potassium 3.1 mmol/L (3.5-5.1); Sodium Level 138 mmol/L (136-145)
[2021-11-10 10:28] LABS: NT PRO-BNP 248 pg/mL (<125); Troponin (Emerg Dept Use Only) < 0.02 ng/mL (0.0-0.045)
[2021-11-10 10:32] LABS: Urine Bacteria 20-50 /HPF (<20); Urine RBC <5 /HPF (NONE SEEN)
[2021-11-10 10:33] LABS: Urine Mucus 1+ /HPF (NONE SEEN)
[2021-11-10 10:34] LABS: Blood Morphology Comment NOT SEEN (NOT SEEN); Platelet Estimate ADEQ; White Blood Cell Scan OK (OK)
--- NOTE | 2021-11-10 11:05 | RAD REPORT ---
EXAM DESCRIPTION: CT - Chest For Pe Angio - 11/10/2021 10:35 am CLINICAL HISTORY: Cough COMPARISON: November 10, 2021 x-ray TECHNIQUE: Dynamically enhanced axial 3 mm thick images of the chest were obtained during administra tion of <100> mL Isovue 370 IV contrast. Coronal and oblique reconstruction images were generated and reviewed. Exam utilizes a protocol for optimal evaluation of pulmonary arterial tree. Maximum intensity projections 3D imaging was utilized All CT scans are performed using dose optimization technique as appropriate and may include automated exposure control or mA/KV adjustment according to patient size. FINDINGS: A pulmonary embolus is not seen. A thoracic aortic aneurysm is not noted. A pleural effusion is not seen. A pericardial effusion is not seen. Mild to moderate patchy ground-glass opacities within the lungs bilaterally Fatty liver. Hepatomegaly IMPRESSION: Negative for a pulmonary embolism. Mild to moderate patchy ground-glass opacities within the lungs bilaterally can be seen with viral pn eumonia
--- NOTE | 2021-11-10 11:05 | RAD REPORT ---
EXAM DESCRIPTION: Parminder Single View11/10/2021 9:35 am CLINICAL HISTORY: Cough COMPARISON: 2019 FINDINGS: Mild to moderate bilateral patchy lung opacities. Heart is normal size IMPRESSION: Mild to moderate patchy bilateral lung opacities may indicate a viral pneumonia
[2021-11-10 14:07] LABS: SARS-COV-2 RT PCR POSITIVE (NEGATIVE)
--- NOTE | 2021-11-10 14:39 | EDPHYS ---
Physician Documentation [facility] Name: Demetria Chamberlain Age: 31 yrs Sex: Female : 1990 Arrival Date: 11/10/2021 Time: 08:45 Bed 13 Private MD: ED Physician Edvin Mcgovern HPI: 11/10 09:20 This 31 yrs old Female presents to ER via Wheelchair with complaints of Fever, rn Breathing Difficulty. 09:20 The patient reports fever, not measured (subjective). Onset: The symptoms/episode rn began/occurred yesterday. Modifying factors: there are no obvious modifying factors. Associated signs and symptoms: Pertinent positives: chills, cough, myalgias, shortness of breath, swelling, Pertinent negatives:. 09:21 Severity of symptoms: At their worst the symptoms were moderate in the emergency rn department the symptoms are unchanged. The patient has not experienced similar symptoms in the past. The patient has been recently seen by a physician: The patient has been recently seen at the [facility] Emergency Department. Patient reports cough and shortness of breath that began yesterday. Reports has had 3 ER visits in the last 2 weeks for complaints that all seem related to her. Reports subjective fever, chills, myalgias, swelling diffusely, and now shortness of breath. States last seen 2 days ago here and told might have an early pneumonia and had a UTI. Sent home on antibiotics. Does not feel better.. 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 - Social history:: Smoking status: Patient denies any tobacco usage or history of. - Family history:: not pertinent. - Hospitalizations: : No recent hospitalization is reported. ROS: 09:21 Constitutional: Positive for fever and chills Eyes: Negative for injury, pain, redness, rn and discharge, ENT: Negative for injury, pain, and discharge, Neck: Negative for injury, pain, and swelling, Cardiovascular: Positive for chest pain Respiratory: Positive for cough and shortness of breath Abdomen/GI: Positive for nausea, negative for abdominal pain Back: Negative for injury : Positive for dysuria MS/Extremity: Negative for injury and deformity, Skin: Negative for injury, rash, and discoloration, Neuro: Negative for numbness, tingling, and seizure. Exam: 09:21 Constitutional: This is a well developed, well nourished patient who is awake, alert, rn crying Head/Face: Normocephalic, atraumatic. Eyes: Periorbital areas with no swelling, redness, or edema. ENT: No stridor Neck: Trachea midline, no masses palpated, and no cervical lymphadenopathy. Supple, full range of motion without nuchal rigidity, or vertebral point tenderness. No Meningismus. Cardiovascular: Tachycardic, regular. No pulse deficits Respiratory: Mild tachypnea, no retractions. Speaking full sentences. Abdomen/GI: Soft, nontender Skin: Warm, dry, no rashes, no cyanosis MS/ Extremity: Pulses equal, no cyanosis. Neurovascular intact. Full, normal range of motion. Equal circumference. Neuro: Awake and alert, GCS 15 Vital Signs: 08:55 BP 150 / 82; Pulse 114; Resp 18; Temp 100.3; Pulse Ox 96% on R/A; Weight 86.18 kg; ll1 Height 5 ft. 6 in. (167.64 cm); Pain 9/10; 11:17 BP 112 / 79; Pulse 85; Resp 14 S; Temp 99.4(O); Pulse Ox 92% on R/A; jg9 12:30 BP 116 / 85; Pulse 98; Resp 18 S; Pulse Ox 93% on R/A; jg9 13:15 BP 118 / 82; Pulse 96; Resp 17 S; Pulse Ox 94% on R/A; jg9 14:30 BP 112 / 82; Pulse 96; Resp 18; Pulse Ox 94% on R/A; jg9 08:55 Body Mass Index 30.67 (86.18 kg, 167.64 cm) ll1 MDM: 08:58 Patient medically screened. rn 09:16 ED course: CTA last time of abdomen pelvis was obtained with IV contrast and patient rn premedicated with steroids and Benadryl without reaction. Read talked about possible inflammation versus septic emboli, spoke at length with patient regarding need for CT of the chest today given now worsening respiratory symptoms. Patient states has had rash from IV contrast in the past but never respiratory issues. After discussion patient wants to do IV contrast with premedication as she states she did fine last time. Risks and benefits explained.. 12:34 ED course: Pt refused COVID/Flu testing, after speaking with her just now, she now rn agrees. Delay of treatment 2/2 patient not cooperating.. 14:37 Differential diagnosis: viral Infection, bacterial infection, URI, pneumonia. Data rn reviewed: vital signs, nurses notes, lab test result(s), radiologic studies, CT scan, plain films, and as a result, I will discharge patient. Data interpreted: Pulse oximetry: on room air is 94 %. Interpretation: normal. Counseling: I had a detailed discussion with the patient and/or guardian regarding: the historical points, exam findings, and any diagnostic results supporting the discharge/admit diagnosis, lab results, radiology results, the need for outpatient follow up, to return to the emergency department if symptoms worsen or persist or if there are any questions or concerns that arise at home. Response to treatment: the patient's symptoms have mildly improved after treatment, and as a result, I will discharge patient. Special discussion: I discussed with the patient/guardian in detail that at this point there is no indication for admission to the hospital. It is understood, however, that if the symptoms persist or worsen the patient needs to return immediately for re-evaluation. ED course: Patient COVID positive, mild pneumonia on x-ray and CT. No pulmonary embolism. Oxygen 94%. Will discharge home with steroids and inhaler with return precautions.. 11/10 09:10 Order name: CBC with Diff rn 11/10 09:10 Order name: Basic Metabolic Panel; Complete Time: 10:36 rn 11/10 09:10 Order name: Procalcitonin; Complete Time: 11:09 rn 11/10 09:10 Order name: Blood Culture Adult (2) rn 11/10 09:10 Order name: COVID-19/FLU A+B (Document "Date of Onset" if Symptomatic); Complete Time: rn 14:22 11/10 09:10 Order name: Urine Microscopic Only; Complete Time: 10:36 rn 11/10 08:57 Order name: XRAY Chest (1 view); Complete Time: 11:09 rn 11/10 09:11 Order name: CBC with Automated Diff; Complete Time: 10:36 EDMS 11/10 09:12 Order name: CK; Complete Time: 10:36 rn 11/10 09:21 Order name: Troponin (emerg Dept Use Only); Complete Time: 10:36 rn 11/10 09:21 Order name: BNP; Complete Time: 10:36 rn 11/10 10:15 Order name: Urine Dipstick-Ancillary; Complete Time: 10:36 EDMS 11/10 10:27 Order name: Urine --Ancillary (enter results); Complete Time: 11:09 bd 11/10 10:34 Order name: CBC Smear Scan; Complete Time: 10:36 EDMS 11/10 09:10 Order name: IV Start; Complete Time: 10:02 rn 11/10 09:10 Order name: Urine Dipstick-Ancillary (obtain specimen); Complete Time: 10:15 rn 11/10 09:10 Order name: Urine Test (obtain specimen); Complete Time: 10:53 rn 11/10 09:13 Order name: CT Chest For PE Angio; Complete Time: 11:09 rn Administered Medications: 10:12 Drug: Tylenol 1000 mg Route: PO; jg9 10:26 Follow up: Response: No adverse reaction salas 10:13 Drug: Pepcid (famotidine) 20 mg Route: IVP; Site: left forearm; jg9 10:26 Follow up: Response: No adverse reaction salas 10:14 Drug: SOLU-Medrol (methylPrednisoLONE) 125 mg Route: IVP; Site: left forearm; jg9 10:53 Follow up: Response: No adverse reaction jg9 10:15 Drug: Benadryl (diphenhydrAMINE) 50 mg Route: IVP; Site: left forearm; jg9 10:26 Follow up: Response: No adverse reaction salas 10:16 Drug: NS 0.9% 1000 ml Route: IV; Rate: 1000 ml; Site: left forearm; jg9 11:30 Follow up: IV Status: Completed infusion; IV Intake: 1000ml jg9 10:16 Drug: Xopenex (levalbuterol) 1.25 mg Route: Inhalation; jg9 10:52 Follow up: Response: No adverse reaction; Marked relief of symptoms jg9 Disposition Summary: 11/10/21 14:38 Discharge Ordered Location: Home rn Problem: an ongoing problem rn Symptoms: have improved rn Condition: Stable rn Diagnosis - Pneumonia due to SARS-associated coronavirus rn Followup: rn - With: Private Physician - When: As needed - Reason: Recheck today's complaints, Re-evaluation by your physician Discharge Instructions: - Discharge Summary Sheet rn - COVID-19 rn - COVID-19 Frequently Asked Questions rn - 10 Things You Can Do to Manage Your COVID-19 Symptoms at Home - [facility] rn Forms: - Medication Reconciliation Form rn - Thank You Letter rn - 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
--- NOTE | 2021-11-10 14:39 | ER ---
Nurse's Notes [facility] Name: Demetria Chamberlain Age: 31 yrs Sex: Female : 1990 Arrival Date: 11/10/2021 Time: 08:45 Bed 13 Private MD: Diagnosis: Pneumonia due to SARS-associated coronavirus Presentation: 11/10 08:55 Chief complaint: Patient states: Was seen here 2 days ago. Has CP and high fever now so ll1 she came to get re checked. Coronavirus screen: Vaccine status: Patient reports being unvaccinated. Client denies travel out of the [place] in the last 14 days. congestion, cough unrelated to allergies, fatigue, fever, headache, muscle pain, Client presents with at least one sign or symptom that may indicate coronavirus-19. Standard/surgical mask placed on the client. Ebola Screen: Patient denies travel to an Ebola-affected area in the 21 days before illness onset. Initial Sepsis Screen: Does the patient meet any 2 criteria? HR > 90 bpm. No. Patient's initial sepsis screen is negative. Does the patient have a suspected source of infection? Yes: Productive cough/pneumonia. Risk Assessment: Do you want to hurt yourself or someone else? Patient reports no desire to harm self or others. Onset of symptoms was October 10, 2021. 08:55 Method Of Arrival: Wheelchair ll1 08:55 Acuity: NIKUNJ 3 ll1 Triage Assessment: 10:45 General: Appears in no apparent distress. Behavior is calm. Respiratory: Reports jg9 shortness of breath with cough Onset: The symptoms/episode began/occurred at an unknown time. the patient has mild shortness of breath. 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 - Social history:: Smoking status: Patient denies any tobacco usage or history of. - Family history:: not pertinent. - Hospitalizations: : No recent hospitalization is reported. Screenin:24 Abuse screen: Denies threats or abuse. Denies injuries from another. Nutritional jg9 screening: No deficits noted. Tuberculosis screening: No symptoms or risk factors identified. Fall Risk None identified. Assessment: 11:24 Pain: Complains of pain in chest Aggravated by cough. Cardiovascular: Rhythm is sinus jg9 rhythm. Respiratory: Airway is patent Respiratory effort is even, unlabored, Breath sounds are diminished bilaterally. 12:15 Reassessment: Patient continues to refuse the COVID test. jg9 12:16 Reassessment: Patient refusing COVID test, "I don't have COVID, all this started with jg9 my wisdom tooth infection". Vital Signs: 08:55 BP 150 / 82; Pulse 114; Resp 18; Temp 100.3; Pulse Ox 96% on R/A; Weight 86.18 kg; ll1 Height 5 ft. 6 in. (167.64 cm); Pain 9/10; 11:17 BP 112 / 79; Pulse 85; Resp 14 S; Temp 99.4(O); Pulse Ox 92% on R/A; jg9 12:30 BP 116 / 85; Pulse 98; Resp 18 S; Pulse Ox 93% on R/A; jg9 13:15 BP 118 / 82; Pulse 96; Resp 17 S; Pulse Ox 94% on R/A; jg9 14:30 BP 112 / 82; Pulse 96; Resp 18; Pulse Ox 94% on R/A; jg9 08:55 Body Mass Index 30.67 (86.18 kg, 167.64 cm) ll1 ED Course: 08:45 Patient arrived in ED. ds1 08:57 Triage completed. ll1 08:57 Arm band placed on. ll1 08:58 Edvin Mcgovern MD is Attending Physician. rn 09:36 XRAY Chest (1 view) In Process Unspecified. EDMS 09:52 Rashmi Sharif, JALEN is Primary Nurse. jg9 10:00 Inserted saline lock: 20 gauge in left forearm, using aseptic technique. jg9 10:15 Urine Dipstick-Ancillary Sent. mb7 10:16 CBC with Diff Sent. jg9 10:35 CT Chest For PE Angio In Process Unspecified. EDMS 10:45 Patient has correct armband on for positive identification. Bed in low position. Call jg9 light in reach. Side rails up X 1. 14:52 No provider procedures requiring assistance completed. jg9 14:52 IV discontinued. jg9 Administered Medications: 10:12 Drug: Tylenol 1000 mg Route: PO; jg9 10:26 Follow up: Response: No adverse reaction salas 10:13 Drug: Pepcid (famotidine) 20 mg Route: IVP; Site: left forearm; jg9 10:26 Follow up: Response: No adverse reaction salas 10:14 Drug: SOLU-Medrol (methylPrednisoLONE) 125 mg Route: IVP; Site: left forearm; jg9 10:53 Follow up: Response: No adverse reaction jg9 10:15 Drug: Benadryl (diphenhydrAMINE) 50 mg Route: IVP; Site: left forearm; jg9 10:26 Follow up: Response: No adverse reaction salas 10:16 Drug: NS 0.9% 1000 ml Route: IV; Rate: 1000 ml; Site: left forearm; jg9 11:30 Follow up: IV Status: Completed infusion; IV Intake: 1000ml jg9 10:16 Drug: Xopenex (levalbuterol) 1.25 mg Route: Inhalation; jg9 10:52 Follow up: Response: No adverse reaction; Marked relief of symptoms jg9 Intake: 11:30 IV: 1000ml; Total: 1000ml. jg9 Outcome: 14:38 Discharge ordered by . rn 14:52 Discharged to home via wheelchair. jg9 14:52 Condition: stable 14:52 Discharge instructions given to patient, Instructed on discharge instructions, follow up and referral plans. Demonstrated understanding of instructions, follow-up care, medications, Prescriptions given X 2. 14:53 Patient left the ED. jg9 Signatures: Dispatcher [employer] EDHI ByrneAdela ds1 Edvin Mcgovern MD MD rn Lewis, Lynsay, RN RN ll1 Mary Anne Kellogg7 Rashmi Sharif RN RN jg9 Tracey-StagerChrissy RN RN ha Corrections: (The following items were deleted from the chart) 10:53 10:26 Response: No adverse reaction salas jg9 10:53 10:52 Response: No adverse reaction jg9 jg9 10:53 10:52 Response: No adverse reaction jg9 jg9 10:53 10:52 Response: No adverse reaction jg9 jg9 11:24 11:17 BP 112 / 79; Pulse 85bpm; Resp 14bpm; Spontaneous; Pulse Ox 92% RA; jg9 jg9
[2021-11-10 15:47] VITALS: TEMP 99.4
[2021-11-10 15:53] VITALS: O2SAT 94
[2021-11-10 15:54] VITALS: BP 112/82
== END 2021-11-10 14:53 | disposition home or self-care (01) ==
LOC: ER 08:40
DX: U07.1 COVID-19 (principal); J12.82 Pneumonia due to coronavirus disease 2019; Z88.0 Allergy status to penicillin; Z88.5 Allergy status to narcotic agent; Z88.8 Allergy status to other drugs, medicaments and biological substances; Z91.048 Other nonmedicinal substance allergy status
CPT/HCPCS: 0240U; 36415; 71045; 71275; 80048; 81003; 81015; 81025; 82550; 83880; 84145; 84484; 85025; 87040; 96361; 96374; 96375; 99285; J1200; J2930; J7030; Q9967